=== PATIENT | male | born 1950 | race Caucasian/White ===

== ENCOUNTER 2020-01-07 17:54 | Inpatient (IN) | payer MEDICARE ==
[2020-01-07] MEDS ORDERED: Magnesium 2 GM/50 ML BAG (IN WATER) ONE (18:25)
[2020-01-07] MEDS ORDERED: Dexamethasone 10 MG/ML VIAL ONE ×2 (18:25→18:28)
[2020-01-07] MEDS ORDERED: EPINEPHrine 1 MG/ML AMP ONE (18:29)
[2020-01-07] MEDS ORDERED: Guaifenesin DM 100-10/5 ML UDCUP PO PRN (19:36)
[2020-01-07] MEDS ORDERED: Calcium Carbonate 500 MG ChewTAB PO PRN (19:37)
[2020-01-07] MEDS ORDERED: Acetaminophen 325 MG TAB PO PRN (19:37)
[2020-01-07] MEDS ORDERED: Acetaminophen 650 MG Suppository PR PRN (19:37)
[2020-01-07] MEDS ORDERED: Albuterol 200 PUFF (6.7GM INHALER) INH PRN (19:40)
[2020-01-07] MEDS ORDERED: Ipratropium Oral Inhaler INH PRN (19:57)
--- NOTE | 2020-01-07 20:04 | PDOC.HHP ---
Hospitalist HPI - History of Present Illness SOB x 3 days History of Present Illness: PCP: DAK[facility] The patient is a 70/M with PMH significant for COPD, CAD x1, CABG x4 (1995), HTN , HLD, GERD and anxiety that presents for the above complaint. The patient reports that for the past 3 days, he has had increasing SOB and cough. Describes cough as productive, clear phlegm. Reports mild chest discomfort, describes as burning, exacerbated/relieved by nothing. Denies heart palpitations , orthopnea. Reports increased usage of his Duonebs, having to use them 10-12 times per day. He sleeps with a fan, reports subjective fever and chills. Denies any abdominal pain, nausea, vomiting or diarrhea. Reports his grand daughter, who stays with him often, had bronchitis about 1 week prior to onset of his symptoms. ED Course: [facility] VS T 97.8F, BP 129/61, HR 90, RR 32, Sp02 94 RA DD 2.56 CTA chest negative for PE, + for bilateral lower lobe patchy infiltrates LA 2.0 WBC 12.4 Flu and strep test negative BNP 218 Trop 0.025 Given: 2L IVF ASA 324mg Rocephin and Azithromycin IVPB Sent to [facility] Covid 19 test taken Dexamethasone 10mg oral Magsulfate Epinephrine 0.3 mg IM in lieu of inhalers Hospitalist ROS - Review of Systems Constitutional: reports: fever (subjective), chills Eyes: denies: pain, vision change, conjunctivae inflammation, eyelid inflammation, redness, other ENT: denies: ear pain, ear discharge, nose pain, nose discharge, nose congestion , mouth pain, mouth swelling, throat pain, throat swelling, other Respiratory: reports: cough, shortness of breath, sputum (clear). denies: dry, hemoptysis Cardiovascular: denies: chest pain, palpitations, orthopnea, paroxysmal noc. dyspnea, edema, light headedness Gastrointestinal: reports: diarrhea. denies: nausea, vomiting, abdominal pain Genitourinary: denies: dysuria, frequency, incontinence, hematuria, retention, other Musculoskeletal: denies: neck pain, shoulder pain, arm pain, back pain, hand pain, leg pain, foot pain, other Skin: denies: rash, lesions, yaya, bruising, other Neurological: denies: weakness, numbness, incoordination, change in speech, confusion, seizures, other Hospitalist History - Past Medical History Source: patient Cardiac: reports: CAD, HTN, [place], Hyperlipidemia Pulmonary: reports: COPD Gastrointestinal: reports: GERD Psych: reports: Anxiety Musculoskeletal: reports: Other (muscle spasms) - Past Surgical History Past Surgical History: reports: CABG (Quadruple bypass (1995)), Other (Right eye biopsy (benign)) - Family History Family History: reports: cardiac disorder - Social History Smoking Status: Current every day smoker Tobacco Type: cigarettes Alcohol: reports: None Drugs: reports: none Living Situation: Alone Occupation: Lives in [place], disability, Activity level: independent ambulation - Exam General Appearance: awake alert General - other findings: unable to speak in complete sentences without supplemental oxygen Eye: anicteric sclera ENT: normocephalic atraumatic, dry oral mucosa Neck: supple, no JVD Heart: RRR, no murmur, no gallops, no rubs, normal peripheral pulses Respiratory: rales, wheezes Respiratory - other findings: diminished in BLL Gastrointestinal: soft, non-tender, normal bowel sounds, no guarding, no rigidity Extremities: no cyanosis, no edema, clubbing Skin: no rashes Neurological: no focal deficits Psychiatric: normal affect, A&O x 3 Hospitalist Results - Radiology Interpretation CT scan - chest Status: report reviewed by nd Hospitalist H&P A/P - Problem (1) Sepsis Code(s): A41.9 - SEPSIS, UNSPECIFIED ORGANISM Status: Acute Assessment and Plan: Admit to medical floor, inpatient status Expected length of stay > 2 midnights Continue Azithromycin and Rocephin IVPB Albuterol/Atrovent inhalers scheduled and prn Influenza and strep test negative Blood CX pending COVID-19 pending Isolation precautions (2) Bilateral pneumonia Code(s): J18.9 - PNEUMONIA, UNSPECIFIED ORGANISM Status: Acute Assessment and Plan: Azithromycin and Rocephin IVPB Albuterol/Atrovent inhalers scheduled and prn Guaifenesin-DM prn Supplemental oxygen (3) COPD exacerbation Code(s): J44.1 - CHRONIC OBSTRUCTIVE PULMONARY DISEASE W (ACUTE) EXACERBATION Status: Acute Assessment and Plan: Azithromycin and rocephin albuterol/atrovent inhalers scheduled and prn Solumedrol scheduled Guaifenesin-DM prn (4) Hyponatremia Code(s): E87.1 - HYPO-OSMOLALITY AND HYPONATREMIA Status: Acute Assessment and Plan: Mild, will recheck level in am (5) CKD (chronic kidney disease) stage 3, GFR 30-59 ml/min Code(s): N18.3 - CHRONIC KIDNEY DISEASE, STAGE 3 (MODERATE) Status: Acute Assessment and Plan: GFR 76 (2014). (6) Tobacco abuse Code(s): Z72.0 - TOBACCO USE Status: Acute Assessment and Plan: 1/2 ppd x > 40 years Recently cut back to < 5 cigarettes/day Start NRT Counseling Tobacco cessation (7) HTN (hypertension) Code(s): I10 - ESSENTIAL (PRIMARY) HYPERTENSION Status: Acute Assessment and Plan: Will restart home medications when reconciled Continue to monitor blood pressure HH diet (8) HLD (hyperlipidemia) Code(s): E78.5 - HYPERLIPIDEMIA, UNSPECIFIED Status: Chronic Assessment and Plan: Restart statin when home medications reconciled. (9) H/O four vessel coronary artery bypass graft Code(s): Z95.1 - PRESENCE OF AORTOCORONARY BYPASS GRAFT Status: Chronic (10) Anxiety Code(s): F41.9 - ANXIETY DISORDER, UNSPECIFIED Status: Chronic Assessment and Plan: Restart lorazepam when home medications reconciled. - Plan Plan: Consult PT DVT and GI prophylaxis Full Code CHEPE Mckeon @ [phone]
[2020-01-07 22:42] LABS: Troponin I Less than 0.010 ng/mL (< 0.028)
[2020-01-07] MEDS: methylPREDNISolone Sod Succ 40 MG VIAL IVP SCH (23:03)
[2020-01-07] MEDS: Nicotine 14 MG PATCH TD SCH (23:03)
[2020-01-07 23:32] VITALS: BMI 22.8
[2020-01-08] MEDS: Albuterol 200 PUFF (6.7GM INHALER) INH SCH ×4 (00:45→19:22)
[2020-01-08] MEDS ORDERED: Polyethylene Glycol 3350 17 GM Packet PO PRN (01:06)
[2020-01-08] MEDS ORDERED: Methocarbamol 500 MG TAB PO SCH (02:15)
[2020-01-08] MEDS: Lorazepam 0.5 MG TAB PO PRN ×3 (02:16→19:52)
[2020-01-08] MEDS: methylPREDNISolone Sod Succ 40 MG VIAL IVP SCH ×4 (05:21→23:16)
[2020-01-08 07:01] LABS: #Lymphocytes 0.5 thou/uL (1.20-3.40); #Monocytes 0.1 thou/uL (0.11-0.59); #Neutrophils 4.7 thou/uL (1.40-6.50); %Basophils 0.3 % (0.0-1.0); %Eosinophils 0.2 % (0.0-10.0); %Lymphocytes 8.7 % (21.0-51.0); %Monocytes 1.5 % (0.0-10.0); %Neutrophils 89.3 % (42.0-75.0); Mean Corpuscular HGB CONC 33.7 g/dL (32.0-36.0); Mean Corpuscular Hemoglobin 31.4 pg (27.0-31.0); Mean Platelet Volume 7.8 fL (7.4-10.4); Platelet Count 171 thou/uL (130-400); RBC Distribution Width 12.3 % (11.5-14.5); Red Blood Cell (RBC) Count 4.46 mill/uL (4.70-6.10); White Blood Cell (WBC) Count 5.3 thou/uL (4.8-10.8)
[2020-01-08 07:22] LABS: ALT (SGPT) 28 U/L (8-55); AST (SGOT) 24 U/L (5-34); Albumin 3.5 g/dL (3.4-4.8); Alkaline Phosphatase 63 U/L (40-110); Anion Gap 14 mmol/L (10-20); BUN (Urea Nitrogen) 15 mg/dL (8.4-25.7); Bilirubin, Total 0.3 mg/dL (0.2-1.2); Calc. Creatinine Clearance 56 mL/min (70-130); Calcium 8.2 mg/dL (7.8-10.44); Carbon Dioxide 21 mmol/L (23-31); Chloride 104 mmol/L (98-107); Estimated GFR-MDRD 61; Globulin 3.1 g/dL (2.4-3.5); Glucose 177 mg/dL (83-110); Potassium 4.8 mmol/L (3.5-5.1); Protein, Total 6.6 g/dL (5.8-8.1); Sodium 134 mmol/L (136-145)
[2020-01-08] MEDS: Famotidine/PF 20 mg/2ml Vial SLOW IVP SCH ×2 (07:22→19:40)
[2020-01-08] MEDS: Multivitamin W/ Minerals 1 TAB PO SCH (07:25)
[2020-01-08] MEDS: Aspirin 81 mg Enteric Coated Tablet PO SCH (07:25)
[2020-01-08] MEDS: Metoprolol Tartrate 50 MG TAB PO SCH ×2 (07:25→19:40)
[2020-01-08] MEDS: Famotidine 20 MG TAB PO SCH ×2 (07:26→19:40)
[2020-01-08] MEDS: Isosorbide Mononitrate (ER) 30 MG TAB PO SCH (07:26)
[2020-01-08] MEDS: Enoxaparin Sodium 40 MG/0.4 ML SYRINGE SC SCH (07:26)
--- NOTE | 2020-01-08 09:28 | PDOC.HOSPP ---
- Subjective Encounter Date: 01/08/20 Encounter Time: 10:20 Subjective: Patient feeling a bit better this AM. Still with significant cough. SOB improved. No fever. - Objective Vital Signs & Weight: Vital Signs (12 hours) Temp Pulse Ox 01/08/20 08:00 98.1 F 97 01/08/20 04:00 97.6 F 01/08/20 00:47 96 01/08/20 00:00 98.3 F 97 01/07/20 22:40 98.1 F Weight Weight 155 lb 3 oz Most Recent Monitor Data Heart Rate from ECG 95 NIBP 138/82 NIBP BP-Mean 100 Respiration from ECG 17 SpO2 92 I&O: 01/07/20 01/08/20 01/09/20 06:59 06:59 06:59 Intake Total 1225 Output Total 725 Balance 500 Result Diagrams: 01/08/20 06:54 01/08/20 06:54 Hospitalist ROS - Review of Systems Constitutional: denies: fever, chills Respiratory: reports: cough, shortness of breath Cardiovascular: denies: chest pain, palpitations Gastrointestinal: denies: nausea, vomiting, abdominal pain Genitourinary: denies: dysuria, hematuria - Medication Medications: Active Medications Generic Name Dose Route Start Last Admin Trade Name Freq PRN Reason Stop Dose Admin Albuterol Sulfate 2 puff 01/08/20 01:00 01/08/20 07:37 Proventil Hfa INH 2 puff [id number] GUANACO Administration Aspirin 81 mg 01/08/20 09:00 01/08/20 07:25 Ecotrin PO 81 mg DAILY GUANACO Administration Enoxaparin Sodium 40 mg 01/08/20 09:00 01/08/20 07:26 Lovenox SC 40 mg 0900 GUANACO Administration Famotidine 20 mg 01/08/20 09:00 01/08/20 07:22 Pepcid SLOW IVP Not Given Q12HR GUANACO Famotidine 20 mg 01/08/20 09:00 01/08/20 07:26 Pepcid PO 20 mg BID GUANACO Administration Ipratropium Felicity 2 puff 01/07/20 19:57 01/08/20 05:22 Atrovent Hfa INH 2 puff QID-RT PRN Administration Wheezing or Cough Iron/Minerals/Multivitamins 1 tab 01/08/20 09:00 01/08/20 07:25 Theragran M PO 1 tab DAILY GUANACO Administration Isosorbide Mononitrate 30 mg 01/08/20 09:00 01/08/20 07:26 Imdur Er PO 30 mg DAILY GUANACO Administration Lorazepam 0.5 mg 01/08/20 01:06 01/08/20 02:16 Ativan PO 0.5 mg TID PRN Administration Anxiety Methylprednisolone Sodium Succinate 40 mg 01/07/20 23:59 01/08/20 05:21 Solu-Medrol IVP 40 mg Q6HR GUANACO Administration Metoprolol Tartrate 25 mg 01/08/20 09:00 01/08/20 07:25 Lopressor PO 25 mg BID GUANACO Administration Nicotine 14 mg 01/07/20 22:00 01/07/20 23:03 Nicoderm Patch TD 14 mg Q24HR GUANACO Administration Sodium Chloride 10 ml 01/07/20 19:37 01/08/20 05:22 Flush - Normal Saline IVF 10 ml PRN PRN Administration Saline Flush - Exam General Appearance: NAD, awake alert ENT: moist mucosa Heart: RRR, no murmur, no gallops, no rubs Respiratory - other findings: bilateral scattered wheezes, some basilar coarse crackles, no inc WOB Gastrointestinal: soft, non-tender, non-distended, normal bowel sounds Psychiatric: normal affect, normal behavior, A&O x 3 Hosp A/P (1) Sepsis Code(s): A41.9 - SEPSIS, UNSPECIFIED ORGANISM Status: Acute (2) Bilateral pneumonia Code(s): J18.9 - PNEUMONIA, UNSPECIFIED ORGANISM Status: Acute (3) COPD exacerbation Code(s): J44.1 - CHRONIC OBSTRUCTIVE PULMONARY DISEASE W (ACUTE) EXACERBATION Status: Acute (4) Hyponatremia Code(s): E87.1 - HYPO-OSMOLALITY AND HYPONATREMIA Status: Acute (5) HTN (hypertension) Code(s): I10 - ESSENTIAL (PRIMARY) HYPERTENSION Status: Chronic (6) GERD (gastroesophageal reflux disease) Code(s): K21.9 - GASTRO-ESOPHAGEAL REFLUX DISEASE WITHOUT ESOPHAGITIS Status: Chronic (7) Tobacco abuse Code(s): Z72.0 - TOBACCO USE Status: Acute (8) Acute renal failure superimposed on stage 2 chronic kidney disease Code(s): N17.9 - ACUTE KIDNEY FAILURE, UNSPECIFIED; N18.2 - CHRONIC KIDNEY DISEASE, STAGE 2 (MILD) Status: Acute - Plan Creatinine improved with fluids Sating well on 2L NC Rocephin and Azithromycin starting 01/07/2020 COVID-19 pending Stable for transfer to medical GI proph: pepcid DVT proph: Lovenox
[2020-01-08] MEDS: Methocarbamol 500 MG TAB PO SCH ×3 (09:44→19:40)
[2020-01-08] MEDS ORDERED: Azithromycin 500 MG in Sodium Chloride 0.9% 250 ML 250 ML IVPB SCH (16:00)
[2020-01-08] MEDS ORDERED: cefTRIAXone\\ROCEPHIN 1 GM in Sodium Chloride 0.9% 100 ML IVPB SCH (17:00)
[2020-01-08] MEDS: Nicotine 14 MG PATCH TD SCH (23:16)
[2020-01-09] MEDS: methylPREDNISolone Sod Succ 40 MG VIAL IVP SCH (05:24)
[2020-01-09] MEDS: Lorazepam 0.5 MG TAB PO PRN ×2 (05:24→20:12)
[2020-01-09] MEDS: Albuterol 200 PUFF (6.7GM INHALER) INH SCH (07:09)
[2020-01-09] MEDS: Famotidine 20 MG TAB PO SCH ×2 (08:07→20:11)
[2020-01-09] MEDS: Aspirin 81 mg Enteric Coated Tablet PO SCH (08:07)
[2020-01-09] MEDS: Methocarbamol 500 MG TAB PO SCH ×3 (08:07→20:12)
[2020-01-09] MEDS: Isosorbide Mononitrate (ER) 30 MG TAB PO SCH (08:08)
[2020-01-09] MEDS: Famotidine/PF 20 mg/2ml Vial SLOW IVP SCH ×2 (08:08→20:11)
[2020-01-09] MEDS: Metoprolol Tartrate 50 MG TAB PO SCH ×2 (08:08→20:12)
[2020-01-09] MEDS: Enoxaparin Sodium 40 MG/0.4 ML SYRINGE SC SCH (08:09)
[2020-01-09] MEDS: Multivitamin W/ Minerals 1 TAB PO SCH (08:09)
--- NOTE | 2020-01-09 08:45 | PDOC.HOSPP ---
- Subjective Encounter Date: 01/09/20 - Objective Vital Signs & Weight: Vital Signs (12 hours) Temp Pulse Resp BP Pulse Ox 01/09/20 05:30 97.7 F 72 20 136/70 93 L 01/08/20 23:30 98.1 F 80 20 133/75 95 Weight Weight 155 lb 3 oz Most Recent Monitor Data Heart Rate from ECG 88 NIBP 129/75 NIBP BP-Mean 93 Respiration from ECG 26 SpO2 95 I&O: 01/08/20 01/09/20 01/10/20 06:59 06:59 06:59 Intake Total 1225 740 Output Total 725 2125 Balance 500 -1385 Result Diagrams: 01/08/20 06:54 01/08/20 06:54 Hospitalist ROS - Medication Medications: Active Medications Generic Name Dose Route Start Last Admin Trade Name Freq PRN Reason Stop Dose Admin Albuterol Sulfate 2 puff 01/08/20 01:00 01/09/20 07:09 Proventil Hfa INH 2 puff [id number] GUANACO Administration Aspirin 81 mg 01/08/20 09:00 01/09/20 08:07 Ecotrin PO 81 mg DAILY GUANACO Administration Enoxaparin Sodium 40 mg 01/08/20 09:00 01/09/20 08:09 Lovenox SC 40 mg 0900 GUANACO Administration Famotidine 20 mg 01/08/20 09:00 01/09/20 08:08 Pepcid SLOW IVP Not Given Q12HR GUANACO Famotidine 20 mg 01/08/20 09:00 01/09/20 08:07 Pepcid PO 20 mg BID GUANACO Administration Azithromycin 500 mg/ Sodium 250 mls @ 250 mls/hr 01/08/20 16:00 01/08/20 16: 17 Chloride IVPB 250 mls Q24HR GUANACO Administration Ceftriaxone Sodium 1 gm/ 100 mls @ 200 mls/hr 01/08/20 17:00 01/08/20 17:05 Sodium Chloride IVPB 100 mls Q24HR GUANACO Administration Ipratropium Dennis 2 puff 01/07/20 19:57 01/08/20 05:22 Atrovent Hfa INH 2 puff QID-RT PRN Administration Wheezing or Cough Iron/Minerals/Multivitamins 1 tab 01/08/20 09:00 01/09/20 08:09 Theragran M PO 1 tab DAILY GUANACO Administration Isosorbide Mononitrate 30 mg 01/08/20 09:00 01/09/20 08:08 Imdur Er PO 30 mg DAILY GUANACO Administration Lorazepam 0.5 mg 01/08/20 01:06 01/09/20 05:24 Ativan PO 0.5 mg TID PRN Administration Anxiety Methocarbamol 500 mg 01/08/20 09:00 01/09/20 08:07 Robaxin PO 500 mg TID GUANACO Administration Methylprednisolone Sodium Succinate 40 mg 01/07/20 23:59 01/09/20 05:24 Solu-Medrol IVP 40 mg Q6HR GUANACO Administration Metoprolol Tartrate 25 mg 01/08/20 09:00 01/09/20 08:08 Lopressor PO 25 mg BID GUANACO Administration Nicotine 14 mg 01/07/20 22:00 01/08/20 23:16 Nicoderm Patch TD 14 mg Q24HR GUANACO Administration Sodium Chloride 10 ml 01/07/20 19:37 01/08/20 05:22 Flush - Normal Saline IVF 10 ml PRN PRN Administration Saline Flush Hosp A/P (1) Sepsis Code(s): A41.9 - SEPSIS, UNSPECIFIED ORGANISM Status: Acute (2) Bilateral pneumonia Code(s): J18.9 - PNEUMONIA, UNSPECIFIED ORGANISM Status: Acute (3) COPD exacerbation Code(s): J44.1 - CHRONIC OBSTRUCTIVE PULMONARY DISEASE W (ACUTE) EXACERBATION Status: Acute (4) Hyponatremia Code(s): E87.1 - HYPO-OSMOLALITY AND HYPONATREMIA Status: Acute (5) HTN (hypertension) Code(s): I10 - ESSENTIAL (PRIMARY) HYPERTENSION Status: Chronic (6) GERD (gastroesophageal reflux disease) Code(s): K21.9 - GASTRO-ESOPHAGEAL REFLUX DISEASE WITHOUT ESOPHAGITIS Status: Chronic (7) Tobacco abuse Code(s): Z72.0 - TOBACCO USE Status: Acute (8) Acute renal failure superimposed on stage 2 chronic kidney disease Code(s): N17.9 - ACUTE KIDNEY FAILURE, UNSPECIFIED; N18.2 - CHRONIC KIDNEY DISEASE, STAGE 2 (MILD) Status: Acute - Plan Creatinine improved with fluids Sating well on 2L NC Rocephin and Azithromycin starting 01/07/2020 COVID-19 negative (apparently was sent from [place] [facility]) Will d/c Covid precautions Stable for transfer to medical GI proph: pepcid DVT proph: Lovenox D/C home once successfully weaned off O2
[2020-01-09] MEDS ORDERED: predniSONE 20 MG TAB PO SCH (09:00)
[2020-01-09] MEDS: Benzonatate 100 MG CAP PO PRN ×2 (09:08→23:08)
[2020-01-09] MEDS: Cefdinir 300 MG CAP PO SCH ×2 (09:09→20:11)
[2020-01-09] MEDS: Azithromycin 250 MG TAB PO SCH (09:09)
--- NOTE | 2020-01-09 15:37 | PQF ---
ANNI GALLEGOS RYAN ANDREW MD [id number] CLINICAL DOCUMENTATION IMPROVEMENT CLARIFICATION FORM: ICD-10 Updated PLEASE DO AN ADDENDUM TO THE PROGRESS NOTE WITH ANY DOCUMENTATION UPDATES OR ADDITIONS AND CARRY THROUGH TO DC SUMMARY. THANK YOU. DATE: 12/11/2019 ATTN: Dr. Fernandez Please exercise your independent, professional judgment in responding to the clarification form. Clinical indicators are provided on the bottom of this form for your review Please check appropriate box(s): [ X ] Acute Respiratory Failure: [ X ] with Hypoxia [ ] with Hypercapnia [ ] Respiratory Distress without Respiratory Failure [ ] Hypoxia [ ] Other diagnosis [ ] Unable to determine For continuity of documentation, please document condition throughout progress notes and discharge summary. Thank You. CLINICAL INDICATORS - SIGNS / SYMPTOMS / LABS / RESULTS AND LOCATION IN [facility] ([place]) 01/06: - VS RR 28-32 O2 SAT 90% on RA to 95-96% on 2L O2 NC - Physical Exam .... Moderate respiratory distress. * H&P 01/06 ([facility]): - [place] [facility] VS RR 32, SpO2 94 RA - CTA chest negative for PE, + bilateral lower lobe patchy infiltrates - Review of Systems Respiratory: reports: cough, shortness of breath ... RISK FACTORS / RESULTS AND LOCATION IN * H&P 01/06 ([facility]): Sepsis ... Bilateral Pneumonia ... COPD exacerbation TREATMENTS / RESULTS AND LOCATION IN [facility] ([place]) 01/06: O2 per NC * H&P 01/06 ([facility]): Continue Azithromycin and Rocephin IVPB ... Albuterol/ Atrovent inhalers scheduled and prn ... Supplemental oxygen Thank you, Fina (This form is maintained as a part of the permanent medical record) 2014 [employer]. All Rights Reserved Fina Frost RN, CDS [email or web address] cell phone: Acute Respiratory Failure: ABG pH < 7.35 or > 7.45; Decreased oxygen saturation (<90% room air or < 95% on oxygen); PCO2 > 50 mm Hg; PO2 < 60 mm Hg; Labored or rapid respirations ARDS: Dx Criteria [[place] ARDS]: Respiratory symptoms within one week of a known clinical insult (e.g. shock, infection, surgery, trauma) Bilateral opacities in CXR/Chest CT not due to CHF or fluid MTDD
[2020-01-09] MEDS: Nicotine 14 MG PATCH TD SCH (23:08)
[2020-01-10] MEDS: Lorazepam 0.5 MG TAB PO PRN (05:20)
[2020-01-10] MEDS: Multivitamin W/ Minerals 1 TAB PO SCH (07:52)
[2020-01-10] MEDS: Isosorbide Mononitrate (ER) 30 MG TAB PO SCH (07:52)
[2020-01-10] MEDS: Cefdinir 300 MG CAP PO SCH (07:52)
[2020-01-10] MEDS: Azithromycin 250 MG TAB PO SCH (07:52)
[2020-01-10] MEDS: Metoprolol Tartrate 50 MG TAB PO SCH (07:53)
[2020-01-10] MEDS: Aspirin 81 mg Enteric Coated Tablet PO SCH (07:53)
[2020-01-10] MEDS: Famotidine 20 MG TAB PO SCH (07:53)
[2020-01-10] MEDS: Enoxaparin Sodium 40 MG/0.4 ML SYRINGE SC SCH (07:57)
[2020-01-10] MEDS: Famotidine/PF 20 mg/2ml Vial SLOW IVP SCH (07:58)
[2020-01-10] MEDS ORDERED: predniSONE 20 MG TAB PO SCH (08:00)
[2020-01-10] MEDS: Methocarbamol 500 MG TAB PO SCH ×2 (09:16→17:08)
[2020-01-10] MEDS: Benzonatate 100 MG CAP PO PRN (09:16)
[2020-01-10 17:07] VITALS: BP 150/75; TEMP 98.2
--- NOTE | 2020-01-13 08:32 | DIS ---
DATE OF ADMISSION: 01/07/2020 DATE OF DISCHARGE: 01/10/2020 DISCHARGE DIAGNOSES: As of the following; 1. Sepsis, resolved. 2. Bilateral pneumonia. 3. Chronic obstructive pulmonary disease exacerbation. 4. Hyponatremia, resolved. 5. Hypertension. 6. Gastroesophageal reflux disease. 7. Acute on chronic renal failure, stage 2, resolved. HOSPITAL COURSE: The patient is a very pleasant 70-year-old male, who initially presented to the hospital. Please refer to the H and P from 01/06 for further details. He initially presented to the hospital with complaints of shortness of breath x3 days. At this time, he underwent a CTA, which indicated bilateral pneumonia. Also, he was tested for COVID, and his test was negative. He was put on IV antibiotics, which were transitioned to oral. The patient's flu and strep test was negative. He continued to improve through the hospital stay. He was ambulated on the day of discharge, and no signs of hypoxia were noted. His sats were 93 after walking 300 feet. The patient stated that he felt well, and he wants to go home. DISCHARGE HOME MEDICATIONS: Will be as of the following; 1. Azithromycin 250 daily. 2. Cefdinir 300 mg b.i.d. 3. DuoNeb q.4 hours. 4. Prednisone 40 mg daily, total for 5 days. 5. Aspirin 81 mg daily. 6. Isosorbide 30 mg daily. 7. Ranitidine 150 mg b.i.d. p.r.n. 8. Atorvastatin 80 mg q.h.s. 9. Robaxin 500 mg t.i.d. as needed. 10. Metoprolol 25 mg twice a day. 11. MiraLAX as needed. 12. Lorazepam as needed. PHYSICAL EXAMINATION: VITAL SIGNS: Temperature 98.0, pulse 85, respiratory rate 18, saturation 95% on room air, and blood pressure 134/73. GENERAL: He is awake, alert, and oriented x3. Does not appear in distress CARDIOVASCULAR: S1 and S2 present. No murmurs, rubs, or gallops. ABDOMEN: Soft and nontender. Bowel sounds are present x2. Again, he will be discharged home. He will follow up with his primary, and also of note, on his CTA, there was an indication of a 3.1 cm aneurysm, which was incompletely visualized of the abdominal aorta at the origin of the SMA. This was put in his discharge note, and also I have spoken with the patient to follow up as an outpatient with his primary at the [facility]. Job ID: [id number]
== END 2020-01-10 18:04 | disposition home or self-care (01) | DRG 871 ==
LOC: ERS 17:54 → IMCU/EMU 18:54 → T4-A 01-08 18:39
PROVIDERS: ADMIT Emergency Medicine; ATTEND Emergency Medicine
DX: A41.9 Sepsis, unspecified organism (principal); J18.9 Pneumonia, unspecified organism; J96.01 Acute respiratory failure with hypoxia; J44.0 Chronic obstructive pulmonary disease with (acute) lower respiratory infection; J44.1 Chronic obstructive pulmonary disease with (acute) exacerbation; E87.1 Hypo-osmolality and hyponatremia; N17.9 Acute kidney failure, unspecified; I25.10 Atherosclerotic heart disease of native coronary artery without angina pectoris; E78.5 Hyperlipidemia, unspecified; K21.9 Gastro-esophageal reflux disease without esophagitis; F41.9 Anxiety disorder, unspecified; I12.9 Hypertensive chronic kidney disease with stage 1 through stage 4 chronic kidney disease, or unspecified chronic kidney disease; N18.3 Chronic kidney disease, stage 3 (moderate); F17.210 Nicotine dependence, cigarettes, uncomplicated; I71.4 Abdominal aortic aneurysm, without rupture; Z95.1 Presence of aortocoronary bypass graft; I25.2 Old myocardial infarction
CPT/HCPCS: 36415; 80053; 85025; 94640; J0171; J0456; J0696; J1100; J1650; J2920; J3475; J3490; J7050; J7512; J7620

== ENCOUNTER 2020-07-27 12:49 | Inpatient (IN) | payer OTHER ==
--- NOTE | 2020-07-27 13:40 | RAD ---
XR Chest 1 View Portable HISTORY: Dizziness, difficulty breathing and chest pain COMPARISON: 01/29/2020 FINDINGS: The heart size is normal. Changes of median sternotomy are again seen. The aorta is tortuou s. There is continued elevation of the left hemidiaphragm. The lungs are without focal areas of consolidation, pneumothorax or significant pleural effusions. There is chronic blunting of the left c ostophrenic angle. IMPRESSION: No radiographic evidence of acute cardiopulmonary process.
[2020-07-27] MEDS ORDERED: Albuterol 200 PUFF (6.7GM INHALER) ONE (13:42)
[2020-07-27 13:49] LABS: #Eosinphils 0.3 thou/uL (0.0-0.7); #Monocytes 0.2 thou/uL (0.11-0.59); #Neutrophils 6.5 thou/uL (1.40-6.50); %Basophils 0.4 % (0.0-1.0); %Eosinophils 3.8 % (0.0-10.0); %Lymphocytes 12.1 % (21.0-51.0); %Monocytes 2.9 % (0.0-10.0); %Neutrophils 80.9 % (42.0-75.0); Hemoglobin 16.4 g/dL (14.0-18.0); Mean Corpuscular HGB CONC 33.5 g/dL (32.0-36.0); Mean Corpuscular Hemoglobin 32.2 pg (27.0-31.0); Mean Platelet Volume 8.4 fL (7.4-10.4); Platelet Count 145 thou/uL (130-400); RBC Distribution Width 12.6 % (11.5-14.5); Red Blood Cell (RBC) Count 5.09 mill/uL (4.70-6.10)
[2020-07-27 14:15] LABS: ALT (SGPT) 16 U/L (8-55); AST (SGOT) 12 U/L (5-34); Albumin 3.9 g/dL (3.4-4.8); Alkaline Phosphatase 66 U/L (40-110); Anion Gap 13 mmol/L (10-20); BUN (Urea Nitrogen) 13 mg/dL (8.4-25.7); Bilirubin, Total 0.4 mg/dL (0.2-1.2); Calc. Creatinine Clearance 0 mL/min (70-130); Calcium 8.4 mg/dL (7.8-10.44); Carbon Dioxide 25 mmol/L (23-31); Chloride 105 mmol/L (98-107); Estimated GFR-MDRD 61; Globulin 2.6 g/dL (2.4-3.5); Glucose 107 mg/dL (83-110); Protein, Total 6.5 g/dL (5.8-8.1); Sodium 138 mmol/L (136-145)
--- NOTE | 2020-07-27 15:23 | PDOC.FPRHP ---
- History of Present Illness Chief Complaint: SOB History of Present Illness: 70 yo M with a PMH of COPD, chronic bronchitis, HTN, HLD, [place], CABG, CAD, and GERD presenting for SOB of 10 day duration. Patient explains he typically uses his home nebulizer 6 times a day and has noticed an increase up to 8-10 times a day. The other night he woke up short of breath and had an oxygen saturation of 85% that improved to 93% after completing a breathing treatment. He is more short of breath walking to the pond behind his house and when doing his daily activities. He also reports an increased productive cough of clear mucous. Mr. Mckeon describes a chest pressure in the center of his chest that feels like a "balloon swelled up inside" that is present when he coughs. He denies chest pain associated with exertion. He endorses orthopnea which has been present for some time causing him to sleep in his recliner. Patient also reports a ~20 pound weight loss over the past 4-5 months, explaining he has been eating less but fe els like the weight is falling off of him. ED Course: EMS: NS, solumedrol, aspirin, albuterol - Allergies/Adverse Reactions Allergies Allergy/AdvReac Type Severity Reaction Status Date / Time No Known Allergies Allergy Verified 01/07/20 23:58 - Home Medications Medication Instructions Recorded Confirmed Type Aspirin [Aspirin EC] 81 mg PO DAILY 01/08/20 07/27/20 History Atorvastatin Calcium 80 mg PO HS 01/08/20 07/27/20 History Benzonatate 100 mg PO TID PRN 01/08/20 07/27/20 History Isosorbide Mononitrate [Isosorbide 30 mg PO DAILY 01/08/20 07/27/20 History Mononitrate ER] LORazepam [Lorazepam] 0.5 mg PO TID PRN 01/08/20 07/27/20 History Methocarbamol [Robaxin] 500 mg PO TID 01/08/20 07/27/20 History Metoprolol Tartrate 25 mg PO BID 01/08/20 07/27/20 History Multivitamin W/ Minerals 1 tab PO DAILY 01/08/20 07/27/20 History [Theragran M] Nitroglycerin [Nitrostat] 0.4 mg SL Q5MIN PRN 01/08/20 07/27/20 History Polyethylene Glycol 3350 [Miralax] 17 gm PO DAILY PRN 01/08/20 07/27/20 History Ranitidine HCl 150 mg PO BID PRN 01/08/20 07/27/20 History Ipratropium/Albuterol Sulfate 3 ml NEB Q4H #240 neb 01/09/20 07/27/20 Rx [DuoNeb] Azithromycin [Zithromax] 250 mg PO DAILY #4 tab 01/10/20 07/27/20 Rx Cefdinir [Omnicef] 300 mg PO BID #8 cap 01/10/20 07/27/20 Rx predniSONE 40 mg PO QAM-WM #3 tab 01/10/20 07/27/20 Rx - History PMHx: [place], COPD, bronchitis, CAD, HTN, HLD, GERD PSHx: stents, CABG (2005) FHx: Heart disease, Dad - emphysema Social: Lives alone. . of the [employer], seen at the [facility]. 1/2PPD for 60 years, denies alcohol, marijuana or drug use - Review of Systems General: reports: weight/appetite/sleep changes. denies: fever/chills, fatigue Eyes: denies: vision changes ENT: denies: nasal congestion, rhinorrhea Respiratory: reports: cough, shortness of breath. denies: congestion Cardiovascular: reports: chest pain, palpitation, paroxysmal nocturnal dyspnea. denies: edema Gastrointestinal: denies: nausea, vomiting, diarrhea, constipation, abdominal pain Genitourinary: denies: dysuria Musculoskeletal: denies: arthritis/arthralgias Neurological: reports: weakness Psychological: reports: anxiety - Vital signs BP: 128/91 HR: 91 RR: 24 Tmax: 96.4 Pox: 95% on RA Wt: 67kg - Physical Exam Constitutional: NAD, awake, alert and oriented HEENT: normocephalic and atraumatic, no scleral icterus, grossly normal vision, grossly normal hearing, other (chronic ptosis and deviation of right eye) Neck: FROM Heart: RRR, no murmurs/rubs/gallops, pulses present, no edema Lungs: other (expiratory wheezes bilaterally) Abdomen: soft, non-tender, bowel sounds present, no masses/distention Musculoskeletal: normal structure, ROM grossly normal Neurological: no focal deficit Skin: no jaundice Psychiatric: normal mood and affect, good judgment and insight, intact recent and remote memory FMR H&P: Results - Labs Result Diagrams: 07/27/20 13:20 07/27/20 13:20 Lab results: WBC 8.0 thou/uL (4.8-10.8) 07/27/20 13:20 Hgb 16.4 g/dL (14.0-18.0) 07/27/20 13:20 Hct 48.8 % (42.0-52.0) 07/27/20 13:20 MCV 96.0 fL (78.0-98.0) 07/27/20 13:20 Plt Count 145 thou/uL (130-400) 07/27/20 13:20 Neutrophils % 80.9 % (42.0-75.0) H 07/27/20 13:20 Sodium 138 mmol/L (136-145) 07/27/20 13:20 Potassium 5.0 mmol/L (3.5-5.1) 07/27/20 13:20 Chloride 105 mmol/L (98-107) 07/27/20 13:20 Carbon Dioxide 25 mmol/L (23-31) 07/27/20 13:20 BUN 13 mg/dL (8.4-25.7) 07/27/20 13:20 Creatinine 1.17 mg/dL (0.7-1.3) 07/27/20 13:20 Glucose 107 mg/dL (83-110) 07/27/20 13:20 Calcium 8.4 mg/dL (7.8-10.44) 07/27/20 13:20 Total Bilirubin 0.4 mg/dL (0.2-1.2) 07/27/20 13:20 AST 12 U/L (5-34) 07/27/20 13:20 ALT 16 U/L (8-55) 07/27/20 13:20 Alkaline Phosphatase 66 U/L (40-110) 07/27/20 13:20 B-Natriuretic Peptide 196.7 pg/mL (0-100) H 07/27/20 13:37 Serum Total Protein 6.5 g/dL (5.8-8.1) 07/27/20 13:20 Albumin 3.9 g/dL (3.4-4.8) 07/27/20 13:20 - EKG Interpretation EKG: no ST elevation - Radiology Interpretation Chest x-ray Status: report reviewed by me (no cardiopulmonary process) FMR H&P: A/P - Plan 70 yo M with a history of COPD and CABG (2005) presenting for increasing SOB over past 10 days. COPD exacerbation Increase productive cough, SOB, and use of nebulizer over past 10 days -CXR normal -afebrile, WBC nml -Duonebs q4hr -albuterol q2hr prn -prednisone (1/5) -azithromycin CAD w/ ACS r/o History of CABG in 2005. Complaining of chest pressure when coughing. -EKG neg, BNP 196.7 -trop <0.01 -admit to tele -trend trops Weight Loss -self reported 20lb weight loss over 4-5 months -may consider CT of chest to screen for lung cancer given patient's smoking history Hx of HTN -Continue home meds Hx of HLD -Continue home meds GERD -Continue home meds Anxiety -takes lorazepam prn at home -aware, will evaluate and treat if necessary during hospitalization Code: FULL PCP: [facility] DVT: lovenox Diet: HH Dispo: eLOS <48 hours pending improvement of symptoms and negative ACS workup. FMR H&P: Upper Level - Plan Date/Time: 07/27/20 1523 IIsabela, have evaluated this patient and agree with findings/plan as outlined by international flight attendant resident. Pertinent changes/additions are listed here. 70 yo M with PMH CAD s/p CABG, COPD presents with increasing SOB and is admitted for COPD exacerbation. Reports 10 day hx increasing SOB, cough, clear sputum production, albuterol use 10x daily. Does not use long acting inhaler. [facility] Current smoker. Denies fever, vomiting. PMH: COPD, CAD s/p CABG, GERD, HLD, HTN, anxiety PE: Gen: NAD HEENT: Moist MM Heart: RRR, no murmurs or extra sounds Lungs: expiratory wheeze, SOB Abd: soft, nontender Ext: no cyanosis or edema Skin: no rashes Psych: AOx3 COPD exacerbation - Satting well on RA at rest but will desat with exertion - CXR with no acute change - WBC wnl with neutrophil predominance - Duonebs victor manuel with albuterol prn - PO prednisone - Azithromycin - Will need to optimize inhaler for better outpatient COPD control prior to d/c PCP: DAKOTA Attending: Maria Esther Dispo: admit for observation, expected LOS<48h
[2020-07-27] MEDS ORDERED: Albuterol Sulfate 2.5 mg/3 ml Neb NEB PRN (16:07)
[2020-07-27] MEDS ORDERED: Polyethylene Glycol 3350 17 GM Packet PO PRN (16:20)
[2020-07-27 16:56] LABS: Troponin I 0.027 ng/mL (< 0.028)
[2020-07-27 19:03] VITALS: BMI 21.9
[2020-07-27] MEDS: Albuterol 200 PUFF (6.7GM INHALER) INH PRN (19:40)
[2020-07-27 20:06] LABS: Troponin I Less than 0.010 ng/mL (< 0.028)
[2020-07-27] MEDS: Metoprolol Tartrate 25 MG TAB PO SCH (20:06)
[2020-07-27] MEDS: Atorvastatin Calcium 40 MG TAB PO SCH (20:06)
[2020-07-27] MEDS: Famotidine 20 MG TAB PO PRN (20:06)
[2020-07-27] MEDS: Lorazepam 0.5 MG TAB PO PRN (20:06)
[2020-07-27] MEDS: Methocarbamol 500 MG TAB PO SCH (20:06)
[2020-07-27] MEDS: Benzonatate 100 MG CAP PO PRN (20:06)
[2020-07-27] MEDS: Albuterol 200 PUFF (6.7GM INHALER) INH SCH (22:15)
[2020-07-28] MEDS: Albuterol 200 PUFF (6.7GM INHALER) INH PRN ×2 (00:55→04:30)
[2020-07-28] MEDS: Nicotine 14 MG PATCH TD SCH ×2 (01:11→21:32)
[2020-07-28] MEDS: Albuterol 200 PUFF (6.7GM INHALER) INH SCH ×6 (02:30→23:26)
[2020-07-28 05:33] LABS: #Lymphocytes 0.9 thou/uL (1.20-3.40); #Monocytes 0.4 thou/uL (0.11-0.59); #Neutrophils 5.5 thou/uL (1.40-6.50); %Basophils 0.5 % (0.0-1.0); %Eosinophils 0.2 % (0.0-10.0); %Lymphocytes 13.3 % (21.0-51.0); %Monocytes 5.4 % (0.0-10.0); %Neutrophils 80.7 % (42.0-75.0); Hemoglobin 15.5 g/dL (14.0-18.0); Mean Corpuscular HGB CONC 33.2 g/dL (32.0-36.0); Mean Corpuscular Hemoglobin 31.7 pg (27.0-31.0); Mean Corpuscular Volume 95.6 fL (78.0-98.0); Mean Platelet Volume 8.4 fL (7.4-10.4); Platelet Count 151 thou/uL (130-400); RBC Distribution Width 12.4 % (11.5-14.5); Red Blood Cell (RBC) Count 4.89 mill/uL (4.70-6.10); White Blood Cell (WBC) Count 6.8 thou/uL (4.8-10.8)
--- NOTE | 2020-07-28 05:37 | PDOC.FM ---
- Subjective Subjective: No reported events overnight. He c/o wheezing, SOB, heart racing this AM. Reports he has been SOB all night. Using albuterol inhaler with spacer, he has not used one of these in the past and is somewhat uncomfortable with using it. Normally uses nebulizer treatments at home. - Objective Vital Signs & Weight: Vital Signs (12 hours) Temp Pulse Resp BP BP Pulse Ox 07/28/20 04:55 94 18 152/73 H 96 07/28/20 00:05 74 18 132/63 96 07/27/20 18:10 96.4 F L 91 22 H 135/83 95 Weight Weight 67.358 kg Result Diagrams: 07/28/20 04:57 07/28/20 04:57 Phys Exam - Physical Examination moderate respiratory distress HEENT: moist MMs diffuse wheezing, audible without auscultation, on 2L NC 91% Cardiovascular: no significant murmur tachycardia, regular rhythm Gastrointestinal: soft ambulates without difficulty Psychiatric: A&O x 3 Dx/Plan - Plan Plan: 70 yo M with a history of COPD and CABG (2005) presenting for increasing SOB over past 10 days. COPD exacerbation Audibly wheezing this AM. CXR normal. Afebrile, WBC nml. Admission covid screen still pending. -albuterol q2hr prn -prednisone (2/5) -azithromycin (1/5) - would like to start duonebs LOKESH but admission COVID screen still pending - would also benefit from controller medication, will consider consult to pulmonology since these agents are only able to be prescribed by them at this time per current policy CAD w/ ACS r/o History of CABG in 2005. Complaining of chest pressure when coughing. EKG neg, BNP 196.7. Trop negative x 3. - low suspicion of ACS given negative EKG and troponins x 3, monitor for symptoms Weight Loss -self reported 20lb weight loss over 4-5 months -may consider CT of chest to screen for lung cancer given patient's smoking history Hx of HTN -Continue home meds Hx of HLD -Continue home meds GERD -Continue home meds Anxiety -takes lorazepam prn at home -aware, will evaluate and treat if necessary during hospitalization Code: FULL PCP: DAKOTA DVT: lovenox Diet: HH Dispo: eLOS <48 hours pending improvement of symptoms
[2020-07-28] MEDS: Lorazepam 0.5 MG TAB PO PRN ×2 (05:46→21:31)
[2020-07-28] MEDS: Benzonatate 100 MG CAP PO PRN ×2 (05:46→21:31)
[2020-07-28 05:51] LABS: Anion Gap 14 mmol/L (10-20); BUN (Urea Nitrogen) 19 mg/dL (8.4-25.7); Calc. Creatinine Clearance 51 mL/min (70-130); Calcium 8.7 mg/dL (7.8-10.44); Carbon Dioxide 22 mmol/L (23-31); Chloride 104 mmol/L (98-107); Estimated GFR-MDRD 57; Glucose 124 mg/dL (83-110); Potassium 4.4 mmol/L (3.5-5.1); Sodium 136 mmol/L (136-145)
--- NOTE | 2020-07-28 07:55 | HP ---
CHIEF COMPLAINT: Increased shortness of breath and cough at times several days in a patient with history of COPD. HISTORY OF PRESENT ILLNESS: Mr. Mckeon is a very talkative 70-year-old white male with a history of COPD. He presented with about a 10-day history of increased shortness of breath and increased cough as well as increased nebulizer treatments at home. He normally uses this 4 and 6 times a day and had increased 8 to 10 times per day. He presented to the ER. He was noted to have an O2 saturation of 85% and has been admitted for further treatment. Of note, he has had a 20 pounds weight loss over the last 4 to 5 months with slightly diminished appetite. PHYSICAL EXAMINATION: VITAL SIGNS: His blood pressure is 130/90, his heart rate is 85, he is afebrile, and his room air pulse ox is now 95%. GENERAL: He is completely awake, alert, very talkative, pleasant, no respiratory distress. EAR, NOSE, AND THROAT: No erythema or exudate noted. CARDIAC: Heart rhythm regular, S4 gallop. Distant heart sounds. No murmur or rub. LUNGS: Few expiratory wheezes. No rales or rhonchi. No use of accessory muscles. ABDOMEN: Flat and soft without guarding or rebound. NEUROLOGICAL: No focal deficits. LABORATORY DATA: Chemistries; sodium 138, potassium 5.0, chloride 105, bicarb 25, BUN 13, and creatinine 1.17. His liver function tests are normal. His troponins are negative at 0.027 followed by 0.010. CBC; his white count is 8000, hemoglobin 16.4, hematocrit 48.8 with an MCV of 96. Chest x-ray shows no acute infiltrates. No radiographic evidence of an acute cardiopulmonary process. ASSESSMENT: Exacerbation of chronic obstructive pulmonary disease. PLAN: Continue nebulizer treatments. Add steroids and antibiotics. We will need to be discharge him probably on triple therapy, which would include an inhaled long-acting beta-agonist, long-acting muscarinic agent, and an inhaled corticosteroid. Job ID: [id number]
[2020-07-28] MEDS: Enoxaparin Sodium 40 MG/0.4 ML SYRINGE SC SCH (08:31)
[2020-07-28] MEDS: Aspirin 81 mg Enteric Coated Tablet PO SCH (08:31)
[2020-07-28] MEDS: Methocarbamol 500 MG TAB PO SCH ×3 (08:31→21:31)
[2020-07-28] MEDS: predniSONE 20 MG TAB PO SCH (08:32)
[2020-07-28] MEDS: Metoprolol Tartrate 25 MG TAB PO SCH ×2 (08:32→21:31)
[2020-07-28] MEDS: Azithromycin 250 MG TAB PO SCH (08:32)
[2020-07-28] MEDS: Multivitamin W/ Minerals 1 TAB PO SCH (08:33)
[2020-07-28] MEDS ORDERED: FLU VACC QS2020-21(65YR UP)/PF 240 MCG/0.7 ML SYRINGE IM ONE (09:00)
[2020-07-28] MEDS ORDERED: methylPREDNISolone Sod Succ/PF 125 MG/2 ML VIAL IVP SCH (10:15)
[2020-07-28] MEDS: Famotidine 20 MG TAB PO PRN (10:49)
[2020-07-28 12:05] LABS: SARS-CoV-2 MS2 Positive; SARS-CoV-2 N Gene Negative; SARS-CoV-2 S Gene Negative; SARS-CoV-2 by NAA Not Detected (NotDetected); SARS-CoV-2 orf1ab Negative
--- NOTE | 2020-07-28 13:56 | PRG ---
DATE OF SERVICE: 07/28/2020 Mr. Mckeon is feeling slightly better this morning. He is as usual, very talkative self. He is awake and alert. His chest x-ray showed no evidence of an acute cardiopulmonary process. We will continue to treat him as per a COPD exacerbation while awaiting the results of a COVID test. Job ID: [id number]
[2020-07-28] MEDS: Atorvastatin Calcium 40 MG TAB PO SCH (21:31)
[2020-07-29] MEDS: Albuterol 200 PUFF (6.7GM INHALER) INH SCH ×6 (03:21→22:14)
--- NOTE | 2020-07-29 06:20 | PDOC.FM ---
- Subjective Subjective: No acute overnight overnight events. Feeling much better after nebulizer treatments and steroids yesterday. He is still feeling some wheezing. No chest pains, fever, chills. Occasional cough that is not bothersome. - Objective Vital Signs & Weight: Vital Signs (12 hours) Temp Pulse Resp BP Pulse Ox 07/29/20 05:00 97.9 F 69 18 136/77 94 L 07/29/20 03:24 96 07/29/20 03:23 98 07/29/20 00:00 96 07/28/20 23:19 98 07/28/20 21:31 95 07/28/20 20:30 97.9 F 94 20 119/66 95 Weight Weight 67.358 kg I&O: 07/27/20 07/28/20 07/29/20 06:59 06:59 06:59 Intake Total 950 Output Total 800 Balance 150 Result Diagrams: 07/28/20 04:57 07/28/20 04:57 Phys Exam - Physical Examination Constitutional: NAD HEENT: moist MMs subtle temporal wasting Respiratory: wheezing present 94% on room air Cardiovascular: RRR, no significant murmur Gastrointestinal: soft, positive bowel sounds Musculoskeletal: no edema Neurological: moves all 4 limbs Psychiatric: normal affect, A&O x 3 Skin: no rash Dx/Plan - Plan Plan: 70 yo M with a history of COPD and CABG (2005) presenting for increasing SOB over past 10 days. COPD exacerbation Started on nebulizers after admission screen negative for covid on 07/28. No longer requiring O2. -duonebs q4hr -albuterol inhaler q2hr prn -prednisone (3/5) -azithromycin (2/5) -would recommend starting controller medications including spiriva and symbicort upoon discharge CAD w/ ACS r/o History of CABG in 2005. Complaining of chest pressure when coughing. EKG neg, BNP 196.7. Trop negative x 3. - low suspicion of ACS given negative EKG and troponins x 3, monitor for symptom s Weight Loss Consider COPD cachexia vs malignancy. -self reported 20lb weight loss over 4-5 months -may consider CT of chest to screen for lung cancer given patient's smoking history Hx of HTN -Continue home meds Hx of HLD -Continue home meds GERD -Continue home meds Anxiety -takes lorazepam prn at home -aware, will evaluate and treat if necessary during hospitalization Code: FULL PCP: DAKOTA DVT: lovenox Diet: HH Dispo: Oli pending clinical improvement
[2020-07-29] MEDS: predniSONE 20 MG TAB PO SCH (08:42)
[2020-07-29] MEDS: Enoxaparin Sodium 40 MG/0.4 ML SYRINGE SC SCH (08:42)
[2020-07-29] MEDS: Aspirin 81 mg Enteric Coated Tablet PO SCH (08:42)
[2020-07-29] MEDS: Azithromycin 250 MG TAB PO SCH (08:42)
[2020-07-29] MEDS: Methocarbamol 500 MG TAB PO SCH ×3 (08:42→20:37)
[2020-07-29] MEDS: Metoprolol Tartrate 25 MG TAB PO SCH ×2 (08:42→20:37)
[2020-07-29] MEDS: Multivitamin W/ Minerals 1 TAB PO SCH (08:49)
[2020-07-29] MEDS: Lorazepam 0.5 MG TAB PO PRN ×2 (09:26→20:37)
[2020-07-29] MEDS: Famotidine 20 MG TAB PO PRN (09:26)
--- NOTE | 2020-07-29 13:52 | PRG ---
DATE OF SERVICE: 07/29/2020 I have examined Mr. Mckeon. I have discussed his case with Dr. Thais Fritz and agree with her assessment and plan. Mr. Mckeon states this morning, he feels better. He is less short of breath after a couple of dosages of steroids. His lungs still demonstrate a few expiratory wheezes, but he is in no distress and is not using accessory muscles. His COVID test was negative. I believe, he is nearing time for discharge probably in a day or two. I would recommend that in addition to his usual rescue inhaler that we add Symbicort and Spiriva. If Spiriva is used, he should probably not use Combivent with it. He could reduce himself to a rescue inhaler consisting of albuterol only. Job ID: [id number]
[2020-07-29] MEDS: Ipratropium Oral Inhaler INH SCH ×2 (14:36→18:58)
[2020-07-29] MEDS: Mometasone 200 MCG/Formoterol 5 MCG 120 PUFF INHALER INH SCH (18:58)
[2020-07-29] MEDS: Atorvastatin Calcium 40 MG TAB PO SCH (20:36)
[2020-07-29] MEDS: Nicotine 14 MG PATCH TD SCH (20:37)
[2020-07-29] MEDS: Benzonatate 100 MG CAP PO PRN (20:41)
[2020-07-30] MEDS: Albuterol 200 PUFF (6.7GM INHALER) INH PRN (00:30)
[2020-07-30] MEDS: Albuterol 200 PUFF (6.7GM INHALER) INH SCH ×2 (02:10→07:25)
--- NOTE | 2020-07-30 06:20 | PDOC.FM ---
- Subjective Subjective: No acute overnight events. Only required one nebulizer treatment overnight. Feeling better this AM. No SOB at rest, no wheezing this morning, no chest pains. - Objective Vital Signs & Weight: Vital Signs (12 hours) Temp Pulse Resp BP Pulse Ox 07/30/20 04:00 97.7 F 66 20 131/69 93 L 07/30/20 02:07 84 20 94 L 07/29/20 20:34 97.6 F 80 18 121/60 93 L 07/29/20 18:58 65 24 H 94 L Weight Weight 67.358 kg I&O: 07/28/20 07/29/20 07/30/20 06:59 06:59 06:59 Intake Total 1430 562 Output Total 1150 Balance 280 562 Result Diagrams: 07/28/20 04:57 07/28/20 04:57 Phys Exam - Physical Examination Constitutional: NAD HEENT: moist MMs Respiratory: clear to auscultation bilateral Cardiovascular: RRR, no significant murmur Gastrointestinal: soft, non-tender, no distention, positive bowel sounds Musculoskeletal: no edema, pulses present Neurological: non-focal, moves all 4 limbs Psychiatric: A&O x 3 Skin: no rash Dx/Plan - Plan Plan: 70 yo M with a history of COPD and CABG (2005) presenting for increasing SOB over past 10 days. COPD exacerbation Started on nebulizers after admission screen negative for covid on 07/28. No longer requiring O2. - prednisone (day 3/5) and azithromycin (day 3/5) - albuterol inhaler PRN - duonebs PRN - atrovent and dulera scheduled - would recommend starting controller medications including spiriva and symbicort upon; will need home inhaler switched from combivent to albuterol with starting these medications CAD w/ ACS r/o History of CABG in 2005. Complaining of chest pressure when coughing. EKG neg, BNP 196.7. Trop negative x 3. - low suspicion of ACS given negative EKG and troponins x 3, monitor for symptoms Weight Loss Consider COPD cachexia vs malignancy. -self reported 20lb weight loss over 4-5 months -may consider CT of chest to screen for lung cancer given patient's smoking history Hx of HTN -Continue home meds Hx of HLD -Continue home meds GERD -Continue home meds Anxiety -takes lorazepam prn at home -aware, will evaluate and treat if necessary during hospitalization Code: FULL PCP: DAKOTA DVT: lovenox Diet: HH Dispo: likely discharge to home soon
[2020-07-30] MEDS: Ipratropium Oral Inhaler INH SCH ×3 (07:25→15:17)
[2020-07-30] MEDS: Mometasone 200 MCG/Formoterol 5 MCG 120 PUFF INHALER INH SCH (07:25)
[2020-07-30] MEDS ORDERED: Azithromycin 250 MG TAB PO SCH (09:00)
[2020-07-30] MEDS: Methocarbamol 500 MG TAB PO SCH ×2 (09:04→15:54)
[2020-07-30] MEDS: Aspirin 81 mg Enteric Coated Tablet PO SCH (09:05)
[2020-07-30] MEDS: predniSONE 20 MG TAB PO SCH (09:05)
[2020-07-30] MEDS: Multivitamin W/ Minerals 1 TAB PO SCH (09:06)
[2020-07-30] MEDS: Metoprolol Tartrate 25 MG TAB PO SCH (09:06)
[2020-07-30] MEDS: Enoxaparin Sodium 40 MG/0.4 ML SYRINGE SC SCH (09:06)
[2020-07-30] MEDS: Lorazepam 0.5 MG TAB PO PRN ×2 (09:10→15:54)
[2020-07-30] MEDS: Benzonatate 100 MG CAP PO PRN (09:12)
[2020-07-30 12:20] VITALS: TEMP 97.8
--- NOTE | 2020-07-30 14:27 | PRG ---
DATE OF SERVICE: 07/30/2020 Mr. Mckeon looks and feels much better. He is no longer wheezing. He will be discharged. We will add to his rescue regimen, Symbicort and Spiriva. Job ID: [id number]
[2020-07-30 15:04] VITALS: BP 114/85
--- NOTE | 2020-07-31 14:30 | DIS ---
DATE OF ADMISSION: 07/27/2020 DATE OF DISCHARGE: 07/30/2020 RESIDENT: Thais Fritz DO. Admission attending: Dr. Mayo Discharge attending: Dr. Mayo CONSULTS: None. PROCEDURES: None. PRIMARY DIAGNOSIS: Chronic obstructive pulmonary disease exacerbation. SECONDARY DIAGNOSES: 1. Coronary artery disease. 2. Hypertension. 3. Hyperlipidemia. 4. Gastroesophageal reflux disease. 5. Anxiety. 6. Weight loss. DISCHARGE MEDICATIONS: 1. Theragran-M one tab p.o. daily. 2. Ranitidine 150 mg p.o. b.i.d. p.r.n. 3. MiraLAX 17 g p.o. daily p.r.n. 4. Robaxin 500 mg p.o. t.i.d. 5. Isosorbide mononitrate ER 30 mg p.o. daily. 6. Atorvastatin 80 mg p.o. h.s. 7. Aspirin 81 mg p.o. daily. 8. Metoprolol tartrate 25 mg p.o. b.i.d. 9. Benzonatate 100 mg p.o. t.i.d. p.r.n. 10. Lorazepam 0.5 mg p.o. t.i.d. p.r.n. 11. Nitrostat 0.4 mg sublingual q.5 minutes p.r.n. 12. Dulera 200 mcg/5 mcg inhaler two puffs b.i.d. 13. Albuterol inhaler two puffs q.4 hours p.r.n. 14. Spiriva Respimat two inhalations daily. 15. Levaquin 500 mg p.o. daily for five days. 16. Ipratropium/albuterol nebulizer solution 3 mL nebulizer q.4 hours p.r.n. 17. Prednisone 40 mg p.o. q.a.m. with meals for three days. Discontinued medications: 1. azithromycin, 2. Omnicef. 3. The patient also advised to discontinue his Combivent inhaler and use the albuterol inhaler instead because he is starting the Spiriva as a new medication. HOSPITAL COURSE: This is a 70-year-old male with a past history of COPD, hypertension, hyperlipidemia, [place], CABG, CAD, and GERD, who presented with shortness of breath of 10 days duration requiring him to use his home nebulizer up to 10 times a day. He reported desaturation to 85% at home, more shortness of breath with walking and some pressure inside of his chest, which caused him to come to the hospital. He is also reporting a significant amount of weight loss over the last four or five months. Chest x-ray was performed which was not suggestive of an acute cardiopulmonary process. He was admitted for COPD exacerbation and started on albuterol inhaler, prednisone, and azithromycin. We were unable to obtain a rapid COVID screen for this patient and as such, we were unable to begin nebulizer treatments on admission. However, the following day with his COVID test came back negative. He was started on DuoNebs as well. The patient was not on any controller medications in the outpatient setting. It sounds like he had tried these in the past, but did not understand that they were for daily use and not for p.r.n. use and as such, he was not compliant with them. This was discussed with the patient. He was started on controller medicine here in the hospital and was discharged with new prescriptions for Dulera and Spiriva. Due to his complaints of chest pressure with coughing when he first came in, his troponins were trended which were negative. He was monitored on telemetry and had no events. He did not have any signs of acute coronary artery syndrome during this admission. He also reports symptoms of weight loss over the past several months. He is eating and drinking fine. Would consider COPD cachexia versus possible malignancy given the patient's smoking history. Recommend that he follow up with his PCP at the [facility] for further evaluation and screening for lung cancer. After being started on controller medications and receiving nebulizer treatment for his COPD exacerbation, the patient's wheezing improved. He is feeling better and did not require any further supplemental oxygen. Ultimately, he was discharged to home in stable condition with new medications including Dulera and Spiriva as well as albuterol for his COPD. He was instructed to stop his Combivent as this should not be using combination with the Spiriva. He was also sent home with continued antibiotics and prednisone to treat his COPD exacerbation, although it does not appear that he had any signs or symptoms of a bacterial pneumonia contributing to this process. DISPOSITION: Stable. DISCHARGE INSTRUCTIONS: 1. Location: Home. 2. Diet: Heart healthy. 3. Activity: As tolerated. 4. [facility] Job ID: [id number] MTDD
--- NOTE | 2020-08-01 13:26 | EKG ---
Test Reason : Blood Pressure : / mmHG Vent. Rate : 089 BPM Atrial Rate : 089 BPM P-R Int : 184 ms QRS Dur : 140 ms QT Int : 420 ms P-R-T Axes : 106 270 043 degrees QTc Int : 511 ms Suspect arm lead reversal, interpretation assumes no reversal Normal sinus rhythm Right bundle branch block Inferior infarct , age undetermined Anterior infarct , age undetermined Abnormal ECG Confirmed by ERIC TALAVERA DO ([id number]), newspaper editor managing JELANI LARSON ([id number]) on 08/01/2020 1:25:58 PM Referred By: Confirmed By:ERIC TALAVERA DO
--- NOTE | 2020-08-01 13:26 | EKG ---
Test Reason : Blood Pressure : / mmHG Vent. Rate : 081 BPM Atrial Rate : 081 BPM P-R Int : 192 ms QRS Dur : 134 ms QT Int : 422 ms P-R-T Axes : 081 -88 059 degrees QTc Int : 490 ms Sinus rhythm with occasional Premature ventricular complexes Left axis deviation Right bundle branch block Inferior infarct , age undetermined Anterior infarct , age undetermined Abnormal ECG Confirmed by ERIC TALAVERA DO ([id number]), videotape editor JELANI LARSON ([id number]) on 08/01/2020 1:26:14 PM Referred By: Confirmed By:ERIC TALAVERA DO
== END 2020-07-30 16:35 | disposition home or self-care (01) | DRG 191 ==
LOC: ERS 12:49 → 2SW 15:24 → OBSVTOIN 15:24 → 2NO 07-28 20:26
PROVIDERS: ADMIT Family Medicine; ATTEND Family Medicine
DX: J44.1 Chronic obstructive pulmonary disease with (acute) exacerbation (principal); R64 Cachexia; I10 Essential (primary) hypertension; E78.5 Hyperlipidemia, unspecified; I25.10 Atherosclerotic heart disease of native coronary artery without angina pectoris; K21.9 Gastro-esophageal reflux disease without esophagitis; Z20.828 Contact with and (suspected) exposure to other viral communicable diseases; I25.2 Old myocardial infarction; Z95.1 Presence of aortocoronary bypass graft; Z79.82 Long term (current) use of aspirin; Z79.899 Other long term (current) drug therapy; Z79.51 Long term (current) use of inhaled steroids; Z79.52 Long term (current) use of systemic steroids; E78.00 Pure hypercholesterolemia, unspecified; F17.210 Nicotine dependence, cigarettes, uncomplicated; F41.9 Anxiety disorder, unspecified; Z68.21 Body mass index [BMI] 21.0-21.9, adult
CPT/HCPCS: 36415; 71045; 80048; 80053; 83880; 84145; 84484; 85025; 87635; 93005; 94760; 96372; 96374; G0378; J1650; J2930; J7512; J7620; U0003

== ENCOUNTER 2020-09-19 18:20 | Inpatient (IN) | payer OTHER ==
[2020-09-19] MEDS ORDERED: Heparin 25,000 units/D5W 500 ML ONE (18:38)
[2020-09-19] MEDS ORDERED: Heparin 10,000 UNITS/ 10 ML VIAL ONE (18:39)
[2020-09-19 18:40] LABS: #Basophils 0.1 thou/uL (0.0-0.2); #Eosinphils 0.8 thou/uL (0.0-0.7); #Neutrophils 7.1 thou/uL (1.40-6.50); %Basophils 0.7 % (0.0-1.0); %Eosinophils 6.5 % (0.0-10.0); %Monocytes 8.4 % (0.0-10.0); %Neutrophils 59.4 % (42.0-75.0); Mean Corpuscular HGB CONC 33.3 g/dL (32.0-36.0); Mean Corpuscular Hemoglobin 31.8 pg (27.0-31.0); Mean Corpuscular Volume 95.4 fL (78.0-98.0); Mean Platelet Volume 8.2 fL (7.4-10.4); Platelet Count 197 thou/uL (130-400); RBC Distribution Width 12.6 % (11.5-14.5); Red Blood Cell (RBC) Count 5.05 mill/uL (4.70-6.10)
[2020-09-19 18:46] LABS: INR-International Normal Ratio 1.1; Prothrombin Time 14.1 sec (12.0-14.7)
[2020-09-19 18:52] LABS: PTT 166.5 sec (22.9-36.1)
[2020-09-19] MEDS ORDERED: Morphine 4 MG/ML VIAL ONE (18:53)
--- NOTE | 2020-09-19 18:57 | RAD ---
EXAM: CHEST ONE VIEW PORTABLE: 09/19/20 HISTORY: STEMI. COMPARISON: 07/27/20. FINDINGS: Postop midline sternotomy. Left hemidiaphragm elevation, stable. Increased linear and interstitial ma rkings bilaterally, stable. Postop midline sternotomy. IMPRESSION: No significant acute intrathoracic disease. Stable left hemidiaphragm elevation and increased marking s bilaterally. No significant new process. POS: RRE
[2020-09-19 19:01] LABS: ALT (SGPT) 22 U/L (8-55); AST (SGOT) 18 U/L (5-34); Albumin 3.9 g/dL (3.4-4.8); Alkaline Phosphatase 71 U/L (40-110); Anion Gap 17 mmol/L (10-20); BUN (Urea Nitrogen) 15 mg/dL (8.4-25.7); Bilirubin, Total 0.3 mg/dL (0.2-1.2); CK (CPK) 115 U/L (30-200); Calc. Creatinine Clearance 0 mL/min (70-130); Calcium 8.1 mg/dL (7.8-10.44); Carbon Dioxide 20 mmol/L (23-31); Chloride 106 mmol/L (98-107); Globulin 2.8 g/dL (2.4-3.5); Glucose 116 mg/dL (83-110); Potassium 4.5 mmol/L (3.5-5.1); Protein, Total 6.7 g/dL (5.8-8.1); Sodium 138 mmol/L (136-145)
[2020-09-19] MEDS ORDERED: methylPREDNISolone Sod Succ/PF 125 MG/2 ML VIAL ONE (19:23)
--- NOTE | 2020-09-19 19:51 | CON ---
DATE OF CONSULTATION: HISTORY OF PRESENT ILLNESS: The patient is a 70-year-old gentleman who presented with acute onset of dyspnea and had chest discomfort. The patient has a long history of coronary artery disease, status post coronary artery bypass graft surgery x4 in 1995. He states he subsequently has had PTCA and stent placement many years ago. The patient states two years ago at the [facility], he underwent a catheterization and was found to have no lesions amenable for coronary intervention. The patient was followed at the [facility]. He also has severe COPD. The patient was recently in the hospital with COPD exacerbation. Today, the patient markedly dyspneic. His blood pressure became elevated. He took a nitroglycerin after he developed midsternal chest discomfort. His heart rate remained elevated. He arrived in the emergency room as a possible acute myocardial infarction. The patient states he is breathing much better. He denies having any present chest discomfort. PAST MEDICAL HISTORY: 1. Coronary artery disease. 2. Hypertension. 3. COPD. 4. Ischemic cardiomyopathy. PAST SURGICAL HISTORY: Coronary artery bypass surgery, hand surgery, and knee surgery. SOCIAL HISTORY: Smokes tobacco. FAMILY HISTORY: No strong family history of heart disease. ALLERGIES: NO KNOWN DRUG ALLERGIES. MEDICATIONS: See nursing list. PHYSICAL EXAMINATION: GENERAL AND VITAL SIGNS: This is an anxious gentleman, in acute distress with a blood pressure of 120/60 on IV nitroglycerin. NECK: No jugular venous distention. LUNGS: Decreased breath sounds bilateral. HEART: Regular rate and rhythm. Normal S1, S2. ABDOMEN: Nondistended. EXTREMITIES: Mild bilateral edema. LABORATORY DATA: Sodium 138, potassium 4.5, chloride 106, bicarbonate 20, BUN 15, creatinine 1.0. Troponin was less than 0.01. White blood cell count 12.0, hemoglobin 16.0, hematocrit 48.1, and platelets are 197. IMPRESSION: 1. Hypertensive crisis. 2. Chronic obstructive pulmonary disease. 3. History of coronary artery bypass surgery. 4. Chronic obstructive pulmonary disease. This gentleman presents with hypertensive crisis. His EKG showed no acute changes. The initial troponin level was normal. The patient is on heparin and IV nitroglycerin. He is undergoing nebulizer treatments. We will follow this patient with you through his hospitalization. Critical care time 45 minutes. Job ID: [id number] [facility]
[2020-09-19 20:55] LABS: Bacteria/HPF None Seen HPF (None Seen); Bilirubin Negative (Negative); Blood, Urine Trace (Negative); Clarity Clear (Clear); Glucose, Urine (Dipstick) Normal (Negative); Ketone, Urine Negative (Negative); Leukocyte Negative Leu/uL (Negative); Nitrite Negative (Negative); Protein, Urine (Dipstick) 10 mg/dL (Neg-Trace); RBC/HPF 0-3 HPF (0-3); Specific Gravity, Urine 1.013 (1.002-1.036); Squamous Epithelial 0-3 HPF (0-3); Urobilinogen Normal mg/dL (Less than 2); WBC/HPF 0-3 HPF (0-3)
[2020-09-19] MEDS ORDERED: Acetaminophen 325 MG TAB PO PRN (20:58)
[2020-09-19] MEDS ORDERED: Promethazine HCl 12.5 MG in Sodium Chloride 0.9% 50 ML IVPB PRN (20:59)
[2020-09-19] MEDS ORDERED: Ondansetron PF 4 MG/2 ML Vial IVP PRN (20:59)
[2020-09-19] MEDS ORDERED: Guaifenesin DM 100-10/5 ML UDCUP PO PRN (20:59)
[2020-09-19] MEDS ORDERED: Labetalol HCl 100 MG/20 ML VIAL SLOW IVP PRN (20:59)
[2020-09-19] MEDS ORDERED: cloNIDine 0.1 MG TAB PO PRN (20:59)
[2020-09-19] MEDS ORDERED: HYDROcodone/Acetaminophen 5/325 mg Tablet PO PRN (20:59)
[2020-09-19] MEDS ORDERED: Morphine 2 MG/ML VIAL SLOW IVP PRN (20:59)
[2020-09-19] MEDS ORDERED: cefTRIAXone\\ROCEPHIN 1 GM in Sodium Chloride 0.9% 100 ML IVPB SCH (21:00)
[2020-09-19] MEDS ORDERED: Electrolyte Replacement Protocol 1 EACH FS SCH (21:00)
[2020-09-19] MEDS ORDERED: Heparin 5,000 UNITS/ML VIAL SC SCH (21:00)
[2020-09-19] MEDS ORDERED: Azithromycin 500 MG in Syringe 0 ML IVPB SCH (21:00)
--- NOTE | 2020-09-19 21:06 | PDOC.HHP ---
Hospitalist HPI - History of Present Illness Shortness of breath History of Present Illness: Patient is a 70 year old male with PMH COPD, chronic bronchitis, HTN, HLD, AL, CABG, CAD, and GERD who presents to ED for shortness of breath, chest pain. Patient reports around 4:30pm developed a pressure like substernal chest pain and shortness of breath. This is similar to previous chest pain he has had, and he believes the cause of chest pain is anxiety, still 3/10 now. He took NTG at home and ASA given in EMS. 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 He was placed on nitroglycerine drip for HTN urgenct and started on heparin drip as well. He was wheezing, and was placed on BIPAP initially though symptoms have already improved after ED interventions. CXR reports no acute intrathoracic disease. ED discussed case with Dr Putnam over phone, who recommended heparin gtt. He was also seen by Dr Luna in person. Patient also given steroids, duoneb and levaquin for suspected COPD exacerbation. Hospitalist ROS - Review of Systems Constitutional: reports: weakness, malaise. denies: fever, chills, sweats, other Eyes: denies: pain, vision change, conjunctivae inflammation, eyelid inflamm ation, redness, other ENT: denies: ear pain, ear discharge, nose pain, nose discharge, nose congestion, mouth pain, mouth swelling, throat pain, throat swelling, other Respiratory: reports: cough, shortness of breath, wheezing. denies: dry, hemoptysis, SOB with excertion, pleuritic pain, sputum, other Cardiovascular: reports: chest pain. denies: palpitations, orthopnea, paroxysmal noc. dyspnea, edema, light headedness, other Gastrointestinal: denies: nausea, vomiting, abdominal pain, diarrhea, constipation, melena, hematochezia, other Genitourinary: denies: dysuria, frequency, incontinence, hematuria, retention, other Musculoskeletal: denies: neck pain, shoulder pain, arm pain, back pain, hand pain, leg pain, foot pain, other Skin: denies: rash, lesions, yaya, bruising, other Neurological: denies: weakness, numbness, incoordination, change in speech, confusion, seizures, other All other systems reviewed; all pertinent +/- noted in HPI/Subj - Medication Medications: albuterol aerosol : Strength - 90 mcg : INHALATION Patient Dose: 1 mcg Nebulize once a day PRN. aspirin oral tablet : Strength - 81 mg : ORAL Patient Dose: 1 mg Oral once a day. atorvastatin tablet : Strength - 80 mg : ORAL Patient Dose: 1 mg Oral once a day (at bedtime). benzonatate capsule : Strength - 100 mg : ORAL Patient Dose: 1 mg Oral 3 times a day (with meals). isosorbide mononitrate tablet extended release 24 hr : Strength - 30 mg : ORAL Patient Dose: 1 mg Oral once a day PRN. methocarbamol oral tablet : Strength - 500 mg : ORAL Patient Dose: 1 mg Oral 3 times a day. metoprolol tartrate oral tablet : Strength - 50 mg : ORAL Patient Dose: 1 mg Oral 2 times a day. polyethylene glycol 3350(bulk) granules : MISCELLANEOUS Patient Dose: 1 g Oral once a day PRN. raNITIdine oral capsule : Strength - 150 mg : ORAL Patient Dose: 1 mg Oral every 12 hours PRN. Hospitalist History - Past Medical History Psych: reports: Anxiety Musculoskeletal: reports: Other (muscle spasms) Other Medical History: AL, COPD, bronchitis, CAD, HTN, HLD, GERD - Past Surgical History Past Surgical History: reports: CABG (Quadruple bypass (1995)), Other (Right eye biopsy (benign)) Other Surgical History: stents, CABG (2005) - Family History Other Family History: Heart disease, Dad - emphysema - Social History Alcohol: reports: None Drugs: reports: none Occupation: Lives in [place], disability, Other Social History: Lives alone. . [employer], seen at the [place]. /[employer]PPD for 60 years, denies alcohol, marijuana or drug use - Exam General Appearance: NAD, awake alert General - other findings: on BIPAP, anxious, no distress Eye: PERRL, anicteric sclera ENT: normocephalic atraumatic, no oropharyngeal lesions, moist mucosa Neck: supple, symmetric, no JVD, no thyromegaly, no lymphadenopathy, no carotid bruit Heart: RRR, no murmur, no gallops, no rubs, normal peripheral pulses Respiratory: wheezes Gastrointestinal: soft, non-tender, non-distended, normal bowel sounds, no pal pable masses, no hepatomegaly, no splenomegaly, no bruit Extremities: no cyanosis, no clubbing, no edema Skin: normal turgor, no lesions, no rashes Neurological: cranial nerve grossly intact, normal sensation to touch, no wea kness, no focal deficits, no new deficit Musculoskeletal: normal tone, normal strength, no muscle wasting Psychiatric: normal affect, normal behavior, A&O x 3 Hospitalist Results - Labs Result Diagrams: 09/19/20 18:22 09/19/20 18:22 Lab results: WBC 12.0 thou/uL (4.8-10.8) H 09/19/20 18:22 Hgb 16.0 g/dL (14.0-18.0) 09/19/20 18:22 Hct 48.1 % (42.0-52.0) 09/19/20 18:22 MCV 95.4 fL (78.0-98.0) 09/19/20 18:22 Plt Count 197 thou/uL (130-400) 09/19/20 18:22 Neutrophils % 59.4 % (42.0-75.0) 09/19/20 18:22 Sodium 138 mmol/L (136-145) 09/19/20 18:22 Potassium 4.5 mmol/L (3.5-5.1) 09/19/20 18:22 Chloride 106 mmol/L (98-107) 09/19/20 18:22 Carbon Dioxide 20 mmol/L (23-31) L 09/19/20 18:22 BUN 15 mg/dL (8.4-25.7) 09/19/20 18:22 Creatinine 1.00 mg/dL (0.7-1.3) 09/19/20 18:22 Glucose 116 mg/dL (83-110) H 09/19/20 18:22 Calcium 8.1 mg/dL (7.8-10.44) 09/19/20 18:22 Total Bilirubin 0.3 mg/dL (0.2-1.2) 09/19/20 18:22 AST 18 U/L (5-34) 09/19/20 18:22 ALT 22 U/L (8-55) 09/19/20 18:22 Alkaline Phosphatase 71 U/L (40-110) 09/19/20 18:22 Creatine Kinase 115 U/L (30-200) 09/19/20 18:22 Troponin I Less than 0.010 ng/mL (< 0.028) 09/19/20 18:22 B-Natriuretic Peptide 137.3 pg/mL (0-100) H 09/19/20 18:22 Serum Total Protein 6.7 g/dL (5.8-8.1) 09/19/20 18: Albumin 3.9 g/dL (3.4-4.8) 09/19/20 18:22 Urine Ketones Negative mg/dL (Negative) 09/19/20 20:40 Urine Blood Trace (Negative) A 09/19/20 20:40 Urine Nitrite Negative (Negative) 09/19/20 20:40 Ur Leukocyte Esterase Negative [place]/uL (Negative) 09/19/20 20:40 Urine RBC 0-3 HPF (0-3) 09/19/20 20:40 Urine WBC 0-3 HPF (0-3) 09/19/20 20:40 Ur Squamous Epith Cells 0-3 HPF (0-3) 09/19/20 20:40 Urine Bacteria None Seen HPF (None Seen) 09/19/20 20:40 Additional comment: VITAL SIGNS Sat Sep 19, 2020 21:23 ABI Ellis Jordan BP: 130/80 MAP: 96 Pulse: 87 Resp: 22 Pain: 1 O2 sat: 100 on (4L Oxygen) Time: 09/19/2020 21:23. - EKG Interpretation EK bpm, sinus, QRS 138, QTc 565, RBBB, no stemi, Dr Putnam reviewed with ED physician. Hospitalist H&P A/P - Plan Plan: Patient is a 70 year old male with PMH COPD, chronic bronchitis, HTN, HLD, AL, CABG, CAD, and GERD who presents to ED for shortness of breath, admitted with following diagnoses # acute hypoxic respiratory failure - patient with history of COPD and wheezing, also with HTN emergency. admitted to IMCU, on BIPAP and NTG drip in ED. # COPD w/ exacerbation # sepsis secondary to COPD exacerbation # hypertensive emergency - admit to IMCU, wean BIPAP and NTG drip as tolerated - IV steroids - consult pulmonary medicine - scheduled/PRN duonebs and continue home nebs or formulary equivalent - treat empiric pneumonia/COPD exacerbation w/ ceftriaxone and doxycycline (doxycycline due to prolonged QTc) # history of CAD with CABG 2005 # CHF - complains of chest pain in ED, originally STEMI alert but ruled out - trend troponin, continue ASA, statin, beta edy, appreciate cardiology assi stance # HTN # HLD # GERD - continue home meds - pepcid # anxiety - IV ativan PRN for acute anxiety due to respiratory distress # leukocytosis - reactive # prolongued QTc - minimize QTc prolonging medications Code: FULL [facility] lovenox
[2020-09-19] MEDS ORDERED: Nitroglycerin 50 MG/250 ML BOT 250 ML IVPB SCH (21:15)
[2020-09-19] MEDS ORDERED: Aspirin 325 MG TAB PO SCH (21:15)
[2020-09-19] MEDS ORDERED: methylPREDNISolone Sod Succ/PF 125 MG/2 ML VIAL IVP SCH (22:00)
[2020-09-19 22:13] LABS: Troponin I 0.014 ng/mL (< 0.028)
[2020-09-19] MEDS: Famotidine 20 MG TAB PO SCH (23:36)
[2020-09-20] MEDS ORDERED: Magnesium 2 GM/50 ML 2 GM in Premix Bag 1 BAG IVPB SCH (00:15)
[2020-09-20] MEDS ORDERED: Doxycycline 100 MG CAP PO SCH ×2 (00:30→09:00)
[2020-09-20] MEDS ORDERED: Heparin 10,000 UNITS/ 10 ML VIAL SLOW IVP SCH (00:45)
[2020-09-20] MEDS ORDERED: Heparin 25,000 units/D5W 500 ML IVPB SCH (00:45)
[2020-09-20 00:46] VITALS: BMI 23.2
[2020-09-20] MEDS ORDERED: cefTRIAXone\\ROCEPHIN 1 GM in Sodium Chloride 0.9% 100 ML IVPB SCH (01:00)
[2020-09-20 01:20] LABS: PTT 228.3 sec (22.9-36.1)
[2020-09-20 04:17] LABS: #Lymphocytes 0.6 thou/uL (1.20-3.40); #Monocytes 0.1 thou/uL (0.11-0.59); #Neutrophils 4.7 thou/uL (1.40-6.50); %Basophils 0.2 % (0.0-1.0); %Eosinophils 0.5 % (0.0-10.0); %Lymphocytes 11.3 % (21.0-51.0); %Monocytes 0.9 % (0.0-10.0); %Neutrophils 87.1 % (42.0-75.0); Hemoglobin 15.2 g/dL (14.0-18.0); Mean Corpuscular HGB CONC 33.1 g/dL (32.0-36.0); Mean Corpuscular Volume 93.5 fL (78.0-98.0); Mean Platelet Volume 8.4 fL (7.4-10.4); Platelet Count 135 thou/uL (130-400); RBC Distribution Width 12.5 % (11.5-14.5); Red Blood Cell (RBC) Count 4.92 mill/uL (4.70-6.10); White Blood Cell (WBC) Count 5.4 thou/uL (4.8-10.8)
[2020-09-20 04:42] LABS: Anion Gap 15 mmol/L (10-20); BUN (Urea Nitrogen) 15 mg/dL (8.4-25.7); Calc. Creatinine Clearance 61 mL/min (70-130); Calcium 8.4 mg/dL (7.8-10.44); Carbon Dioxide 23 mmol/L (23-31); Chloride 101 mmol/L (98-107); Glucose 141 mg/dL (83-110); Magnesium 2.5 mg/dL (1.6-2.6); Potassium 5.3 mmol/L (3.5-5.1); Sodium 134 mmol/L (136-145)
[2020-09-20] MEDS: methylPREDNISolone Sod Succ/PF 125 MG/2 ML VIAL IVP SCH ×3 (04:51→20:48)
[2020-09-20] MEDS: Ipratropium Bromide 2.5 ml Neb NEB SCH ×4 (07:21→23:58)
[2020-09-20 07:37] LABS: SARS-CoV-2 MS2 Positive; SARS-CoV-2 N Gene Negative; SARS-CoV-2 S Gene Negative; SARS-CoV-2 by NAA Not Detected (NotDetected); SARS-CoV-2 orf1ab Negative
[2020-09-20] MEDS ORDERED: FLU VACC QS2020-21(65YR UP)/PF 240 MCG/0.7 ML SYRINGE IM ONE (09:00)
[2020-09-20] MEDS: Aspirin 81 mg Enteric Coated Tablet PO SCH (09:13)
[2020-09-20] MEDS: Metoprolol Tartrate 25 MG TAB PO SCH (09:13)
[2020-09-20] MEDS: Famotidine 20 MG TAB PO SCH ×2 (09:14→20:48)
[2020-09-20] MEDS: Lorazepam 2 MG/ML VIAL SLOW IVP PRN ×2 (09:33→17:59)
[2020-09-20] MEDS: Polyethylene Glycol 3350 17 GM Packet PO SCH (11:06)
--- NOTE | 2020-09-20 15:26 | PDOC.HOSPP ---
- Subjective Encounter Date: 09/20/20 Encounter Time: 13:00 Subjective: F/u : COPD and chest pain The patient states his chest pain has resolved. He is off the nitroglycerin drip . The patient states he has had COPD for 8 years. 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 Yesterday he noticed he was tachycardic with heart rate up to 137. He took aspirin, nitro and albuterol and his heart rate wasn't coming down so he called the ambulance. He was also unable to register a blood pressure THe patient is not on oxygen at home. He has a mild cough. He has not ambulated yet today - Objective Vital Signs & Weight: Vital Signs (12 hours) Temp Pulse Resp Pulse Ox 09/20/20 13:54 91 20 98 09/20/20 08:00 100 09/20/20 07:31 80 16 90 L 09/20/20 04:16 97.4 F L Weight Weight 157 lb 6.561 oz Most Recent Monitor Data Heart Rate from ECG 91 NIBP 147/80 NIBP BP-Mean 102 Respiration from ECG 21 SpO2 98 I&O: 09/19/20 09/20/20 09/21/20 06:59 06:59 06:59 Intake Total 1968 Output Total 2300 Balance -332 Result Diagrams: 09/20/20 03:52 09/20/20 03:52 Hospitalist ROS - Review of Systems Constitutional: denies: fever, chills - Medication Medications: Active Medications Generic Name Dose Route Start Last Admin Trade Name Freq PRN Reason Stop Dose Admin Albuterol/Ipratropium 3 ml 09/19/20 20:59 09/19/20 23:52 Ipratropium/Albuterol Sulfate 3 Ml Neb NEB 3 ml Q2H PRN Administration SOB &/or Wheezing Albuterol/Ipratropium 3 ml 09/20/20 07:00 09/20/20 13:54 Ipratropium/Albuterol Sulfate 3 Ml Neb NEB 3 ml [id number] GUANACO Administration Aspirin 81 mg 09/20/20 09:00 09/20/20 09:13 Aspirin 81 Mg Enteric Coated Tablet PO 81 mg DAILY GUANACO Administration Doxycycline Hyclate 100 mg 09/20/20 09:00 09/20/20 09:15 Doxycycline 100 Mg Cap PO 100 mg BID GUANACO Administration Famotidine 20 mg 09/19/20 21:00 09/20/20 09:14 Famotidine 20 Mg Tab PO 20 mg BID GUANACO Administration Heparin Sodium (Porcine) 0 units 09/20/20 00:45 09/20/20 11:02 Heparin 10,000 Units/ 10 Ml Vial SLOW IVP 2,322 units ASDIR GUANACO Administration Protocol Ceftriaxone Sodium 1 gm/ 100 mls @ 200 mls/hr 09/20/20 01:00 09/20/20 01:07 Sodium Chloride IVPB 100 mls 0100 GUANACO Administration Ipratropium [place] 2.5 ml 09/20/20 07:00 09/20/20 13:13 Ipratropium [place] 2.5 Ml Neb NEB Not Given [id number] GUANACO Isosorbide Mononitrate 30 mg 09/20/20 09:00 09/20/20 09:14 Isosorbide Mononitrate Er 30 Mg Tab PO 30 mg DAILY GUANACO Administration Lorazepam 0.5 mg 09/19/20 23:51 09/20/20 09:33 Lorazepam 2 Mg/Ml Vial SLOW IVP 0.5 mg Q6H PRN Administration Anxiety/Agitation Methylprednisolone Sodium Succinate 60 mg 09/20/20 04:00 09/20/20 11:58 Methylprednisolone Sod Succ/Pf 125 Mg/2 Ml Vial IVP 60 mg 0400,1200,2000 GUANACO Administration Metoprolol Tartrate 25 mg 09/20/20 09:00 09/20/20 09:13 Metoprolol Tartrate 25 Mg Tab PO 25 mg DAILY GUANACO Administration Polyethylene Glycol 17 gm 09/20/20 09:00 09/20/20 11:06 Polyethylene Glycol 3350 17 Gm Packet PO Not Given DAILY GUANACO - Exam General Appearance: NAD, awake alert Eye: PERRL, anicteric sclera Neck: no JVD Heart: RRR, no murmur, no gallops, no rubs Respiratory - other findings: wheezing bilaterally Gastrointestinal: soft, non-tender, non-distended, normal bowel sounds Extremities: no cyanosis, no clubbing, no edema Skin: normal turgor, no lesions, no rashes Neurological: cranial nerve grossly intact, normal sensation to touch, no weakness Hosp A/P - Plan Chest X ray: no significant disease This is a 70 year old male with history of COPD who presented to the ER with tachycardia, chest pain and shortness of breath. He was thought o have STEMI initially and was placed on heparin drip and nitroglycerin drip. He was also admitted for COPD exacerbation Acute hypoxic respiratory failure secondary to COPD exacerbation - continue IV steroids, he has been weaned down to room air -continue atrovent and albuterol prn. Add dulera bid - continue doxycycline. Discontinue ceftriaxone . COVId negative - will continue steroids for another day IV, transfer to medical floor. Case management consult for assistance with [facility] Chest pain - resolved - troponins negative. EKG showed possible mild ST elevation in II and III. Will repeat EKG - nitroglycerin drip discontinued. Will discontinue heparin drip, okay with cardiology CAD s/p CABG - continue aspirin, statin, coreg
[2020-09-20] MEDS: Albuterol Sulfate 2.5 mg/3 ml Neb NEB PRN ×2 (17:48→22:23)
[2020-09-20] MEDS: Mometasone 200 MCG/Formoterol 5 MCG 120 PUFF INHALER INH SCH (18:26)
[2020-09-20] MEDS: Atorvastatin Calcium 40 MG TAB PO SCH (20:48)
[2020-09-20] MEDS: Doxycycline 100 MG CAP PO SCH (20:48)
[2020-09-21] MEDS: Albuterol Sulfate 2.5 mg/3 ml Neb NEB PRN (02:22)
[2020-09-21] MEDS: methylPREDNISolone Sod Succ/PF 125 MG/2 ML VIAL IVP SCH ×2 (03:00→13:40)
[2020-09-21 04:06] LABS: #Lymphocytes 0.6 thou/uL (1.20-3.40); #Monocytes 0.3 thou/uL (0.11-0.59); %Basophils 0.6 % (0.0-1.0); %Lymphocytes 7.4 % (21.0-51.0); %Monocytes 3.2 % (0.0-10.0); %Neutrophils 88.8 % (42.0-75.0); Mean Corpuscular HGB CONC 33.4 g/dL (32.0-36.0); Mean Corpuscular Hemoglobin 30.9 pg (27.0-31.0); Mean Corpuscular Volume 92.4 fL (78.0-98.0); Mean Platelet Volume 8.4 fL (7.4-10.4); Platelet Count 131 thou/uL (130-400); RBC Distribution Width 12.4 % (11.5-14.5); Red Blood Cell (RBC) Count 4.52 mill/uL (4.70-6.10); White Blood Cell (WBC) Count 7.8 thou/uL (4.8-10.8)
[2020-09-21 04:24] LABS: Anion Gap 15 mmol/L (10-20); BUN (Urea Nitrogen) 29 mg/dL (8.4-25.7); Calc. Creatinine Clearance 47 mL/min (70-130); Calcium 8.4 mg/dL (7.8-10.44); Carbon Dioxide 24 mmol/L (23-31); Chloride 102 mmol/L (98-107); Glucose 164 mg/dL (83-110); Potassium 4.6 mmol/L (3.5-5.1); Sodium 136 mmol/L (136-145)
[2020-09-21] MEDS ORDERED: Magnesium 2 GM/50 ML 2 GM in Premix Bag 1 BAG IVPB SCH (06:45)
[2020-09-21] MEDS: Mometasone 200 MCG/Formoterol 5 MCG 120 PUFF INHALER INH SCH ×2 (07:04→18:14)
[2020-09-21] MEDS: Ipratropium Bromide 2.5 ml Neb NEB SCH ×4 (07:04→23:49)
[2020-09-21] MEDS: Doxycycline 100 MG CAP PO SCH ×2 (09:11→20:18)
[2020-09-21] MEDS: Aspirin 81 mg Enteric Coated Tablet PO SCH (09:11)
[2020-09-21] MEDS: Famotidine 20 MG TAB PO SCH ×2 (09:11→20:19)
[2020-09-21] MEDS: Metoprolol Tartrate 25 MG TAB PO SCH (09:11)
[2020-09-21] MEDS: Polyethylene Glycol 3350 17 GM Packet PO SCH (09:11)
[2020-09-21] MEDS: Lorazepam 2 MG/ML VIAL SLOW IVP PRN ×2 (09:20→20:32)
--- NOTE | 2020-09-21 14:07 | PDOC.HOSPP ---
- Subjective Encounter Date: 09/21/20 Encounter Time: 14:05 Subjective: F/u: COPD The patient is still wheezing significantly. He has been ambulating around the [place]. He doesn't wear oxygen at home and is currently on one liter. - Objective Vital Signs & Weight: Vital Signs (12 hours) Temp Pulse Pulse Pulse Resp BP Pulse Ox 09/21/20 12:00 98.5 F 85 18 125/68 95 09/21/20 10:56 107 H 22 H 93 L 09/21/20 09:56 81 117 H 09/21/20 08:00 98.9 F 98 18 141/67 H 95 09/21/20 07:04 81 20 94 L 09/21/20 04:00 98.6 F 93 16 132/73 97 09/21/20 02:36 94 L 09/21/20 02:22 98 22 H 94 L Pulse Ox Pulse Ox 09/21/20 12:00 09/21/20 10:56 09/21/20 09:56 93 L 89 L 09/21/20 08:00 09/21/20 07:04 09/21/20 04:00 09/21/20 02:36 09/21/20 02:22 Weight Weight 157 lb 6.561 oz Most Recent Monitor Data Heart Rate from ECG 85 NIBP 128/73 NIBP BP-Mean 91 Respiration from ECG 18 SpO2 95 I&O: 09/20/20 09/21/20 09/22/20 06:59 06:59 06:59 Intake Total 1968 200 450 Output Total 2300 900 Balance -332 -700 450 Result Diagrams: 09/21/20 03:52 09/21/20 03:52 Hospitalist ROS - Review of Systems Constitutional: denies: fever, chills - Medication Medications: Active Medications Generic Name Dose Route Start Last Admin Trade Name Freq PRN Reason Stop Dose Admin Albuterol Sulfate 2.5 mg 09/20/20 17:36 09/21/20 02:22 Albuterol Sulfate 2.5 Mg/3 Ml Neb NEB 2.5 mg Q2H PRN Administration Dyspnea/Wheezing/SOB Albuterol/Ipratropium 3 ml 09/20/20 07:00 09/21/20 10:56 Ipratropium/Albuterol Sulfate 3 Ml Neb NEB 3 ml [id number] GUANACO Administration Aspirin 81 mg 09/20/20 09:00 09/21/20 09:11 Aspirin 81 Mg Enteric Coated Tablet PO 81 mg DAILY GUANACO Administration Atorvastatin Calcium 80 mg 09/20/20 21:00 09/20/20 20:48 Atorvastatin Calcium 40 Mg Tab PO 80 mg HS GUANACO Administration Doxycycline Hyclate 100 mg 09/20/20 21:00 09/21/20 09:11 Doxycycline 100 Mg Cap PO 100 mg BID GUANACO Administration Famotidine 20 mg 09/19/20 21:00 09/21/20 09:11 Famotidine 20 Mg Tab PO 20 mg BID GUANACO Administration Ipratropium [place] 2.5 ml 09/20/20 07:00 09/21/20 10:48 Ipratropium [place] 2.5 Ml Neb NEB Not Given [id number] [facility] Isosorbide Mononitrate 30 mg 09/20/20 09:00 09/21/20 09:11 Isosorbide Mononitrate Er 30 Mg Tab PO 30 mg DAILY GUANACO Administration Lorazepam 0.5 mg 09/19/20 23:51 09/21/20 09:20 Lorazepam 2 Mg/Ml Vial SLOW IVP 0.5 mg Q6H PRN Administration Anxiety/Agitation Methylprednisolone Sodium Succinate 60 mg 09/20/20 04:00 09/21/20 13:40 Methylprednisolone Sod Succ/Pf 125 Mg/2 Ml Vial IVP 60 mg 0400,1200,2000 GUANACO Administration Metoprolol Tartrate 25 mg 09/20/20 09:00 09/21/20 09:11 Metoprolol Tartrate 25 Mg Tab PO 25 mg DAILY GUANACO Administration Mometasone Furoate/Formoterol Fumar 1 puff 09/20/20 18:30 09/21/20 07:04 Mometasone 200 Mcg/Formoterol 5 Mcg 120 Puff Inhaler INH 1 puff BID-RT GUANACO Administration Polyethylene Glycol 17 gm 09/20/20 09:00 09/21/20 09:11 Polyethylene Glycol 3350 17 Gm Packet PO Not Given DAILY GUANACO - Exam General Appearance: NAD, awake alert Eye: PERRL, anicteric sclera ENT: normocephalic atraumatic, no oropharyngeal lesions Neck: no JVD Heart: RRR, no murmur, no gallops, no rubs Respiratory: no rales, no ronchi Respiratory - other findings: diffuse wheezing Gastrointestinal: soft, non-tender, non-distended, normal bowel sounds Extremities: no cyanosis, no clubbing, no edema Skin: normal turgor, no lesions, no rashes Neurological: cranial nerve grossly intact, normal sensation to touch, no weakness Musculoskeletal: normal tone, normal strength, no muscle wasting Psychiatric: normal affect, normal behavior, A&O x 3 Hosp A/P - Plan Chest X ray: no significant disease This is a 70 year old male with history of COPD who presented to the ER with t achycardia, chest pain and shortness of breath. He was thought o have STEMI initially and was placed on heparin drip and nitroglycerin drip. He was also admitted for COPD exacerbation Acute hypoxic respiratory failure secondary to COPD exacerbation - continue IV steroids, will increase to 80 mg q6 hours - will obtain pulm consult, still has significant wheezing - check sputum culture - continue scheduled and prn breathing treatments Chest pain - resolved - troponins negative. EKG showed possible mild ST elevation in II and III. Will repeat EKG - nitroglycerin drip discontinued. Discontinued heparin drip, okay with cardiology CAD s/p CABG - continue aspirin, statin, coreg
--- NOTE | 2020-09-21 16:38 | EKG ---
Test Reason : Blood Pressure : / mmHG Vent. Rate : 085 BPM Atrial Rate : 085 BPM P-R Int : 176 ms QRS Dur : 152 ms QT Int : 424 ms P-R-T Axes : 036 -81 013 degrees QTc Int : 504 ms Poor data quality, interpretation may be adversely affected Normal sinus rhythm Left axis deviation Right bundle branch block Inferior infarct (cited on or before 27-JUL-2020) Probable anterior infarct Abnormal ECG When compared with ECG of 27-JUL-2020 15:12, Premature ventricular complexes are no longer Present Confirmed by DR. Raul DELEON ([id number]) on 09/21/2020 4:38:17 PM Referred By: [facility] Confirmed By:DR. Raul DELEON
[2020-09-21] MEDS ORDERED: Pantoprazole 40 MG VIAL IVP SCH (20:00)
[2020-09-21] MEDS: methylPREDNISolone Sod Succ 40 MG VIAL IVP SCH (20:13)
[2020-09-21] MEDS: Atorvastatin Calcium 40 MG TAB PO SCH (20:19)
--- NOTE | 2020-09-21 21:40 | CON ---
DATE OF CONSULTATION: HISTORY OF PRESENT ILLNESS: Kuldip Mckeon is a 70-year-old gentleman, who seeks care at the [facility] both here locally and in [place], said he had difficulty breathing over the last 24 hours with an elevated heart rate. He came to the ER and is now being admitted. We have been consulted regarding his pulmonary status. He smokes four cigarettes a day. He has longstanding history of a pack a day smoker for most of his life. He is not going to quit smoking, says it calms his lung down. He is feeling better right now without any associated chest pain, chills, sweats, or hemoptysis. In fact, he walked about 100 feet without getting too short of breath. PAST MEDICAL HISTORY: COPD with ongoing tobacco abuse. History of coronary artery disease, peripheral vascular disease, history of hyperlipidemia, high cholesterol, and hypertension. PAST SURGICAL HISTORY: Previous surgeries include previous bypass and multiple cardiac stents. HABITS: Alcohol, minimal. Tobacco, as noted. MEDICATIONS: Home medicine from the [facility] includes apparently; 1. Spiriva. 2. Dulera. 3. Metoprolol 25. 4. Robaxin. 5. Ativan 0.5. 6. Azmacort. 7. DuoNeb. 8. Aspirin. ALLERGIES: NONE. SOCIAL HISTORY: Unremarkable. REVIEW OF SYSTEMS: A 10-point negative. PHYSICAL EXAMINATION: VITAL SIGNS: Temperature 98, pulse saturation 90% on room air, and blood pressure 120/68. CHEST: No wheezing, no crackles. CARDIAC: Normal S1 and S2. No gallops. ABDOMEN: No masses. LABORATORY DATA: Creatinine 1.47. ASSESSMENT AND PLAN: Chronic obstructive pulmonary disease exacerbation, bronchitis, hypertension, and coronary artery disease. He is at his baseline. I would switch him over to oral prednisone and discharged home in the next 24 to 48 hours. Follow up with the [facility]. Consultation note, 70 minutes, 50% direct patient care. Job ID: [id number]
[2020-09-21 23:10] LABS: Creatinine, Urine 71.29 mg/dL (63-166)
[2020-09-22] MEDS: methylPREDNISolone Sod Succ 40 MG VIAL IVP SCH ×2 (00:32→06:19)
[2020-09-22 04:21] LABS: #Lymphocytes 0.4 thou/uL (1.20-3.40); #Monocytes 0.2 thou/uL (0.11-0.59); #Neutrophils 7.2 thou/uL (1.40-6.50); %Basophils 0.1 % (0.0-1.0); %Lymphocytes 5.5 % (21.0-51.0); %Monocytes 2.1 % (0.0-10.0); %Neutrophils 92.1 % (42.0-75.0); Mean Corpuscular HGB CONC 33.6 g/dL (32.0-36.0); Mean Corpuscular Hemoglobin 31.1 pg (27.0-31.0); Mean Corpuscular Volume 92.6 fL (78.0-98.0); Mean Platelet Volume 8.8 fL (7.4-10.4); Platelet Count 137 thou/uL (130-400); RBC Distribution Width 12.5 % (11.5-14.5); Red Blood Cell (RBC) Count 4.49 mill/uL (4.70-6.10); White Blood Cell (WBC) Count 7.8 thou/uL (4.8-10.8)
[2020-09-22 04:47] LABS: Anion Gap 13 mmol/L (10-20); BUN (Urea Nitrogen) 28 mg/dL (8.4-25.7); Calc. Creatinine Clearance 59 mL/min (70-130); Calcium 8.2 mg/dL (7.8-10.44); Carbon Dioxide 27 mmol/L (23-31); Chloride 103 mmol/L (98-107); Glucose 170 mg/dL (83-110); Magnesium 2.2 mg/dL (1.6-2.6); Potassium 4.2 mmol/L (3.5-5.1); Sodium 139 mmol/L (136-145)
[2020-09-22] MEDS: Lorazepam 2 MG/ML VIAL SLOW IVP PRN ×2 (06:26→20:07)
[2020-09-22] MEDS: Ipratropium Bromide 2.5 ml Neb NEB SCH ×3 (07:02→20:02)
[2020-09-22] MEDS: Mometasone 200 MCG/Formoterol 5 MCG 120 PUFF INHALER INH SCH ×2 (07:03→19:40)
[2020-09-22] MEDS: Albuterol Sulfate 2.5 mg/3 ml Neb NEB PRN ×2 (07:03→22:14)
[2020-09-22] MEDS: Metoprolol Tartrate 25 MG TAB PO SCH (08:27)
[2020-09-22] MEDS: Pantoprazole 40 MG VIAL IVP SCH ×2 (08:27→20:14)
[2020-09-22] MEDS: Famotidine 20 MG TAB PO SCH ×2 (08:27→20:11)
[2020-09-22] MEDS: Aspirin 81 mg Enteric Coated Tablet PO SCH (08:27)
[2020-09-22] MEDS: Polyethylene Glycol 3350 17 GM Packet PO SCH (08:28)
[2020-09-22] MEDS: Doxycycline 100 MG CAP PO SCH ×2 (09:00→20:11)
--- NOTE | 2020-09-22 10:59 | PRG ---
DATE OF SERVICE: 09/22/2020 OBJECTIVE: This morning, his temperature was , his pulse 88, sats 99% on room air, though when he walks, he desats in the mid 80s. Blood pressure 137/72. CHEST: Decreased breath sounds. No wheezing. CARDIAC: Normal S1, S2. No masses. ASSESSMENT: 1. Chronic obstructive pulmonary disease. 2. Tobacco abuse. 3. Major anxiety. PLAN: He can be discharged home any time. He wants portable low-flow O2. He is going to pay for it prescription given for this. Follow up with the [facility]. Job ID: [id number]
--- NOTE | 2020-09-22 17:14 | PDOC.HOSPP ---
- Subjective Encounter Date: 09/22/20 Encounter Time: 10:00 Subjective: F/u: COPD The patient's cough has improved, had some clear phlegm, sent for sputum culture. He ambulated and was found to desaturate to 88% on room air. He is willing to pay out of pocket for his oxygen He also was unable to afford inhalers at the [place], and he will get free dulera voucher - Objective Vital Signs & Weight: Vital Signs (12 hours) Temp Pulse Resp BP Pulse Ox 09/22/20 14:31 66 18 97 09/22/20 10:34 80 20 96 09/22/20 08:09 97.9 F 88 137/72 93 L 09/22/20 08:00 93 L 09/22/20 07:03 103 H 18 95 Weight Weight 157 lb 6.561 oz Most Recent Monitor Data Heart Rate from ECG 85 NIBP 128/73 NIBP BP-Mean 91 Respiration from ECG 18 SpO2 95 I&O: 09/21/20 09/22/20 09/23/20 06:59 06:59 06:59 Intake Total 200 1160 590 Output Total 900 750 Balance -700 410 590 Result Diagrams: 09/22/20 04:00 09/22/20 04:00 Hospitalist ROS - Review of Systems Constitutional: denies: fever, chills - Medication Medications: Active Medications Generic Name Dose Route Start Last Admin Trade Name Freq PRN Reason Stop Dose Admin Albuterol Sulfate 2.5 mg 09/20/20 17:36 09/22/20 07:03 Albuterol Sulfate 2.5 Mg/3 Ml Neb NEB 2.5 mg Q2H PRN Administration Dyspnea/Wheezing/SOB Albuterol/Ipratropium 3 ml 09/20/20 07:00 09/22/20 14:31 Ipratropium/Albuterol Sulfate 3 Ml Neb NEB 3 ml [id number] GUANACO Administration Aspirin 81 mg 09/20/20 09:00 09/22/20 08:27 Aspirin 81 Mg Enteric Coated Tablet PO 81 mg DAILY GUANACO Administration Atorvastatin Calcium 80 mg 09/20/20 21:00 09/21/20 20:19 Atorvastatin Calcium 40 Mg Tab PO 80 mg HS GUANACO Administration Doxycycline Hyclate 100 mg 09/20/20 21:00 09/22/20 09:00 Doxycycline 100 Mg Cap PO Not Given BID GUANACO Famotidine 20 mg 09/19/20 21:00 09/22/20 08:27 Famotidine 20 Mg Tab PO 20 mg BID GUANACO Administration Ipratropium [place] 2.5 ml 09/20/20 07:00 09/22/20 14:31 Ipratropium [place] 2.5 Ml Neb NEB Not Given [id number] GUANACO Isosorbide Mononitrate 30 mg 09/20/20 09:00 09/22/20 08:27 Isosorbide Mononitrate Er 30 Mg Tab PO 30 mg DAILY GUANACO Administration Lorazepam 0.5 mg 09/19/20 23:51 09/22/20 06:26 Lorazepam 2 Mg/Ml Vial SLOW IVP 0.5 mg Q6H PRN Administration Anxiety/Agitation Metoprolol Tartrate 25 mg 09/20/20 09:00 09/22/20 08:27 Metoprolol Tartrate 25 Mg Tab PO 25 mg DAILY GUANACO Administration Mometasone Furoate/Formoterol Fumar 1 puff 09/20/20 18:30 09/22/20 07:03 Mometasone 200 Mcg/Formoterol 5 Mcg 120 Puff Inhaler INH 1 puff BID-RT GUANACO Administration Pantoprazole Sodium 40 mg 09/22/20 09:00 09/22/20 08:27 Pantoprazole 40 Mg Vial IVP 40 mg Q12HR GUANACO Administration Polyethylene Glycol 17 gm 09/20/20 09:00 09/22/20 08:28 Polyethylene Glycol 3350 17 Gm Packet PO Not Given DAILY GUANACO - Exam General Appearance: NAD, awake alert Eye: PERRL, anicteric sclera ENT: normocephalic atraumatic, no oropharyngeal lesions Neck: no JVD Heart: RRR, no murmur, no gallops, no rubs Respiratory - other findings: mild wheezing Gastrointestinal: soft, non-tender, non-distended Extremities: no cyanosis, no clubbing, no edema Hosp A/P - Plan Chest X ray: no significant disease This is a 70 year old male with history of COPD who presented to the ER with tachycardia, chest pain and shortness of breath. He was thought o have STEMI initially and was placed on heparin drip and nitroglycerin drip. He was also admitted for COPD exacerbation Acute hypoxic respiratory failure secondary to COPD exacerbation - improved. Switched to oral prednisone. Pulmonary following, no additional recommendations - continue doxycycline - sputum culture pending - continue duonebs q4 and albuterol prn . Continue dulera bid - case management was consulted for setting up home oxygen Chest pain - resolved - troponins negative. EKG showed possible mild ST elevation in II and III. Repeat EKG unremarkable. - nitroglycerin drip discontinued. Discontinued heparin drip, okay with cardiology CAD s/p CABG - continue aspirin, statin, coreg Disposition: anticipate d/c tomorrow on home oxygen
[2020-09-22] MEDS: Atorvastatin Calcium 40 MG TAB PO SCH (20:11)
[2020-09-23] MEDS: Ipratropium Bromide 2.5 ml Neb NEB SCH ×3 (00:52→10:54)
[2020-09-23] MEDS: Albuterol Sulfate 2.5 mg/3 ml Neb NEB PRN (04:31)
[2020-09-23] MEDS: Mometasone 200 MCG/Formoterol 5 MCG 120 PUFF INHALER INH SCH (07:17)
[2020-09-23] MEDS ORDERED: predniSONE 20 MG TAB PO SCH (08:00)
[2020-09-23 08:11] VITALS: BP 168/77; TEMP 98.4
[2020-09-23] MEDS: Famotidine 20 MG TAB PO SCH (08:48)
[2020-09-23] MEDS: Metoprolol Tartrate 25 MG TAB PO SCH (08:48)
[2020-09-23] MEDS: Aspirin 81 mg Enteric Coated Tablet PO SCH (08:48)
[2020-09-23] MEDS: Doxycycline 100 MG CAP PO SCH (08:48)
[2020-09-23] MEDS: Pantoprazole 40 MG VIAL IVP SCH (08:49)
[2020-09-23] MEDS: Polyethylene Glycol 3350 17 GM Packet PO SCH (08:49)
--- NOTE | 2020-09-23 17:25 | PDOC.DS.DS ---
Provider - Provider Date of Admission: 09/19/20 19:58 Date of Discharge: 09/23/20 Admitting Provider: Gema Putnam MD Consultations: Pulmonary (Dr. Mekhi Díaz) Primary Care Physician: [facility] Course - Hospital Course Hospital Course: Discharge Diagnoses: 1. Acute hypoxic respiratory failure secondary to COPD exacerbation 2. Tobacco abuse 3. Chronic systolic heart failure Brief HPI: This is a 70 year old male with history of COPD who is still smoking who presented to the ER with chest tightness. THe patient stated that he was tachycardic at home, and tried taking nitroglycerin and aspirin to bring his heart rate down, but was unable to so he called the ambulance. He was unable to get a blood pressure but when EMS arrived it was 220. The patient was brought to the hospital due to EKG showing concern for ST elevation in leads II and III. Hospital Course: Acute hypoxic respiratory failure secondary to COPD exacerbation: the patient was found saturation of 85% on room air. The patient was initially placed on BiPAP and admitted to the [facility]. He was started on doxycycline and IV steroids. Patient was started on duo nebs, albuterol, Dulera. He did significantly improve with this and had significantly less wheezing. Pulmonary was consulted as well. Home oxygen evaluation was done on 09/22 and showed that the patient desaturated on exertion less than 88% and saturations improved with 0.5 to 1 L oxygen. Patient was set up with home oxygen on discharge. Patient states that he was unable to sheepskin pickler his inhalers from the [place] because the paperwork was not filled out correctly and it cost him $600. He was given a voucher for Dulera which he will get for free. He is also prescribed DuoNebs every 4 hours since Spiriva was not covered by his insurance. He was also prescribed albuterol rescue inhaler as needed and a 5 day course of prednisone. Chest pain/Chronic systolic heart failure: the patient had an EKG which showed questionable ST elevation in lead II and III. Blood pressure was 120-130 while i n the hospital. He was admitted to the IMCU on a heparin drip and nitroglycerin drip. His chest pain resolved after receiving breathing treatments. His troponins were negative x3. Cardiology was consulted and patient was started on aspirin. Echo was performed which showed an EF of 40 to 45%. Repeat EKG showed no significant ST elevation. Patient was discharged with Lasix 20 mg daily as needed for edema . '' Tobacco abuse: the patient stated he will quit smoking on discharge. He has tried the patches and medicine in the past without success. Pertinent Studies: Chest X ray 09/19: no significant disease ECHO 09/20: EF 40-45% Resuscitation Status: 09/19/20 21:02 Resuscitation Status Routine Resuscitation Status: FULL: Full Resuscitation - Labs Lab Results: 09/22/20 04:00 09/22/20 04:00 Abnormal Lab Results - Last 48 hrs 09/22/20 04:00: BUN 28 H 09/22/20 04:00: RBC 4.49 L, Hct 41.6 L, MCH 31.1 H, Neutrophils % 92.1 H, Lymphocytes % 5.5 L, Neutrophils # 7.2 H, Lymphocytes # 0.4 L Microbiology - Entire Visit 09/22/20 07:40 Sputum Respiratory Culture - Preliminary - Physical Exam Vitals: Vital Signs (12 hours) Temp Pulse Resp BP Pulse Ox 09/23/20 10:53 83 20 96 09/23/20 08:04 98.4 F 80 18 168/77 H 97 09/23/20 08:00 97 09/23/20 07:20 92 L 09/23/20 07:18 114 H 20 92 L 09/23/20 07:17 114 H 20 92 L 09/23/20 04:31 78 16 93 L Weight Weight 157 lb 6.561 oz Most Recent Monitor Data Heart Rate from ECG 85 NIBP 128/73 NIBP BP-Mean 91 Respiration from ECG 18 SpO2 95 Physical Exam: The patient was seen and examined on the day of discharge. General: patient is alert, awake, oriented times three CV: RRR, no murmurs, rubs, gallops Lungs: mild wheezing Abdomen: +BS, soft, nontender, nondistended Extremities: no edema Problem - Time spent with Patient (mins): 35 Plan - Discharge Medications Prescriptions: Ipratropium/Albuterol Sulfate [DuoNeb] 3 ml NEB [id number] #6 box Mometasone/Formoterol 200/5 [Dulera 200 Mcg/5 Mcg Inhaler] 1 puff INH BID-RT #1 inh Furosemide 20 mg PO DAILY PRN #30 tablet PRN Reason: Edema predniSONE 40 mg PO QAM-WM #10 tab Albuterol Sulfate [Proair Digihaler] 90 mcg IH Q4H PRN #1 aer.pw.bas PRN Reason: wheezing Doxycycline [Vibramycin] 100 mg PO BID #6 cap Home Medications: Medication Instructions Recorded Confirmed Type Aspirin [Aspirin EC] 81 mg PO DAILY 01/08/20 09/19/20 History Atorvastatin Calcium 80 mg PO HS 01/08/20 09/19/20 History Benzonatate 100 mg PO TID PRN 01/08/20 09/19/20 History Isosorbide Mononitrate [Isosorbide 30 mg PO DAILY 01/08/20 09/19/20 History Mononitrate ER] LORazepam [Lorazepam] 0.5 mg PO TID PRN 01/08/20 09/19/20 History Methocarbamol [Robaxin] 500 mg PO TID 01/08/20 09/19/20 History Metoprolol Tartrate 25 mg PO DAILY 01/08/20 09/20/20 History Multivitamin W/ Minerals 1 tab PO DAILY 01/08/20 09/19/20 History [Theragran M] Nitroglycerin [Nitrostat] 0.4 mg SL Q5MIN PRN 01/08/20 09/19/20 History Polyethylene Glycol 3350 [Miralax] 17 gm PO DAILY PRN 01/08/20 09/19/20 History Ipratropium/Albuterol Sulfate 3 ml NEB Q4H #240 neb 07/30/20 09/19/20 Rx [DuoNeb] Albuterol Sulfate [Proair 90 mcg IH Q4H PRN #1 aer.pw.bas 09/23/20 Rx Digihaler] Doxycycline [Vibramycin] 100 mg PO BID #6 cap 09/23/20 Rx Furosemide 20 mg PO DAILY PRN #30 tablet 09/23/20 Rx Ipratropium/Albuterol Sulfate 3 ml NEB [id number] #6 box 09/23/20 Rx [DuoNeb] Mometasone/Formoterol 200/5 1 puff INH BID-RT #1 inh 09/23/20 Rx [Dulera 200 Mcg/5 Mcg Inhaler] predniSONE 40 mg PO QAM-WM #10 tab 09/23/20 Rx Allergies: No Known Allergies Allergy (Verified 09/19/20 23:27) - Discharge Instructions Activity:: Activity as Tolerated Nourishment:: Fluid Restriction Diet (1.5L ), Heart Healthy Diet Equipment/Supplies:: Oxygen - Follow up Plan Referrals: [facility] [Primary Care Provider] - Disposition: HOME Quality - Care Measures CORE MEASURES:: HF
--- NOTE | 2020-09-24 14:25 | PQF ---
CLINICAL DOCUMENTATION CLARIFICATION FORM: Dear Dr. Marcela Henry Date: 09.24.20 Please exercise your independent, professional judgment in responding to the clarification form. Clinical indicators are provided on the bottom of this form for your review. Please check appropriate box(es): [ X ] SIRS due to Non-infectious process COPD Exacerbation with Acute Hypoxic Respiratory Failure [ ] COPD Exacerbation only [ ] COPD with Pneumonia [ ] Other diagnosis [ ] Unable to determine For continuity of documentation, please document condition throughout progress notes and discharge summary. Thank You. To be completed by CDI/Coding staff for physician review: CLINICAL INDICATORS - SIGNS / SYMPTOMS / LABS / RESULTS AND LOCATION IN 12.5 H&P (Ater): * Acute Hypoxic Respiratory Failure * Sepsis secondary to COPD exacerbation * Treat empiric PNA/ COPD exacerbation RISK FACTORS / RESULTS AND LOCATION IN [facility]. H&P (Aterno): PMH: COPD; Bronchitis TREATMENT / RESULTS AND LOCATION IN 12. H&P (Ater): * Admit to IMCU * wean BIPAP and NTG drip * IV steroids * pulmonary consult * scheduled /PRN duonebs; * treat empiric PNA/ COPD exacerbation w/ ceftriaxone and doxycycline CDS Signature: Alyson Deng RN, CCDS Phone #: [phone] [email or web address] This is a permanent part of the Medical Record [facility]
== END 2020-09-23 14:50 | disposition home or self-care (01) | DRG 189 ==
LOC: ERS 18:20 → IMCU/EMU 19:58 → ONC 09-21 02:02
PROVIDERS: ADMIT Internal Medicine Cardiovascular Disease; ATTEND Internal Medicine Cardiovascular Disease
DX: J96.01 Acute respiratory failure with hypoxia (principal); J44.1 Chronic obstructive pulmonary disease with (acute) exacerbation; I16.1 Hypertensive emergency; I50.22 Chronic systolic (congestive) heart failure; R65.10 Systemic inflammatory response syndrome (SIRS) of non-infectious origin without acute organ dysfunction; I25.10 Atherosclerotic heart disease of native coronary artery without angina pectoris; K21.9 Gastro-esophageal reflux disease without esophagitis; F41.9 Anxiety disorder, unspecified; D72.829 Elevated white blood cell count, unspecified; E78.5 Hyperlipidemia, unspecified; I11.0 Hypertensive heart disease with heart failure; Z95.1 Presence of aortocoronary bypass graft; I25.2 Old myocardial infarction; Z79.82 Long term (current) use of aspirin; Z79.899 Other long term (current) drug therapy; Z79.51 Long term (current) use of inhaled steroids; R07.9 Chest pain, unspecified; Z20.828 Contact with and (suspected) exposure to other viral communicable diseases
CPT/HCPCS: 36415; 71045; 80048; 80053; 81003; 81015; 82550; 82570; 83735; 83880; 84300; 84484; 85025; 85610; 85730; 86850; 86900; 86901; 87070; 87205; 87635; 90471; 90662; 93005; 93010; 93306; 94640; 94660; 96365; 96366; 96367; 96375; 99292; C9113; G0008; J0696; J1644; J1956; J2060; J2270; J2920; J2930; J3475; J3490; J7512; J7611; J7620; U0003

== ENCOUNTER 2021-08-10 04:25 | Inpatient (IN) | payer MEDICARE, OTHER ==
[2021-08-10] MEDS ORDERED: Amiodarone 150 MG/3 ML VIAL ONE (04:48)
[2021-08-10 05:10] LABS: #Eosinphils 0.6 thou/uL (0.0-0.7); #Lymphocytes 1.7 thou/uL (1.20-3.40); #Monocytes 0.6 thou/uL (0.11-0.59); #Neutrophils 4.9 thou/uL (1.40-6.50); %Basophils 0.1 % (0.0-1.0); %Eosinophils 8.1 % (0.0-10.0); %Lymphocytes 21.6 % (21.0-51.0); %Monocytes 7.5 % (0.0-10.0); %Neutrophils 62.7 % (42.0-75.0); Hemoglobin 15.4 g/dL (14.0-18.0); Mean Corpuscular HGB CONC 33.8 g/dL (32.0-36.0); Mean Corpuscular Hemoglobin 30.7 pg (27.0-31.0); Mean Corpuscular Volume 90.8 fL (78.0-98.0); Mean Platelet Volume 8.5 fL (7.4-10.4); Platelet Count 155 thou/uL (130-400); RBC Distribution Width 12.8 % (11.5-14.5); Red Blood Cell (RBC) Count 5.02 mill/uL (4.70-6.10); White Blood Cell (WBC) Count 7.9 thou/uL (4.8-10.8)
[2021-08-10 05:26] LABS: ALT (SGPT) 16 U/L (8-55); AST (SGOT) 13 U/L (5-34); Albumin 4.2 g/dL (3.4-4.8); Alkaline Phosphatase 74 U/L (40-110); Anion Gap 18 mmol/L (10-20); BUN (Urea Nitrogen) 14 mg/dL (8.4-25.7); Bilirubin, Total 0.5 mg/dL (0.2-1.2); CK (CPK) 97 U/L (30-200); Calc. Creatinine Clearance 0 mL/min (70-130); Calcium 8.9 mg/dL (7.8-10.44); Carbon Dioxide 23 mmol/L (23-31); Chloride 102 mmol/L (98-107); Globulin 2.6 g/dL (2.4-3.5); Glucose 104 mg/dL (83-110); Lipase 30 U/L (8-78); Potassium 3.8 mmol/L (3.5-5.1); Protein, Total 6.8 g/dL (5.8-8.1); Sodium 139 mmol/L (136-145)
[2021-08-10 07:16] LABS: SARS-CoV-2 NAA Rapid Test Not Detected (NotDetected)
[2021-08-10] MEDS ORDERED: Metoprolol Tartrate 50 MG TAB PO SCH (09:00)
[2021-08-10] MEDS ORDERED: Ondansetron PF 4 MG/2 ML Vial IVP PRN (09:19)
[2021-08-10] MEDS ORDERED: Ondansetron ODT 4 MG TAB PO PRN (09:19)
[2021-08-10] MEDS: Enoxaparin Sodium 40 MG/0.4 ML SYRINGE SC SCH (09:22)
[2021-08-10] MEDS: Aspirin Chewable 81 MG TAB PO SCH (09:22)
[2021-08-10] MEDS ORDERED: Amiodarone 450 MG, Admixture Fee 1 EACH in Dextrose 5% in Water 250 ML IVPB SCH (09:30)
[2021-08-10] MEDS ORDERED: Iopamidol-370 76% 500 ML 1 ML ONE (09:33)
[2021-08-10] MEDS ORDERED: cefTRIAXone\\ROCEPHIN 1 GM in Sodium Chloride 0.9% 100 ML IVPB SCH (10:00)
[2021-08-10 10:01] LABS: Troponin I Less than 0.010 ng/mL (< 0.028)
[2021-08-10] MEDS: Ipratropium Bromide 2.5 ml Neb NEB PRN ×6 (10:38→21:29)
[2021-08-10 10:49] LABS: Legionella Urinary Ag Negative (Negative); Strep pneumo Urine Ag NEGATIVE (NEGATIVE)
[2021-08-10] MEDS ORDERED: Lorazepam 0.5 MG TAB PO PRN (11:14)
[2021-08-10] MEDS ORDERED: Nitroglycerin 0.4 MG TAB (25 Tab Bottle) SL PRN (11:14)
[2021-08-10 11:37] LABS: Troponin I 0.016 ng/mL (< 0.028)
[2021-08-10 11:49] LABS: Magnesium 1.7 mg/dL (1.6-2.6)
[2021-08-10] MEDS ORDERED: FLU VACC QS2021-22(65YR UP)/PF 240 MCG/0.7 ML SYRINGE IM ONE (14:00)
[2021-08-10] MEDS: Mometasone 200 MCG/Formoterol 5 MCG 120 PUFF INHALER INH SCH (18:19)
[2021-08-10] MEDS: Atorvastatin Calcium 40 MG TAB PO SCH (20:22)
[2021-08-10] MEDS: Methocarbamol 500 MG TAB PO SCH (20:23)
[2021-08-10] MEDS: Benzonatate 100 MG CAP PO SCH (20:23)
[2021-08-11] MEDS: Ipratropium Bromide 2.5 ml Neb NEB PRN ×3 (01:40→07:58)
[2021-08-11 05:55] LABS: Cardiac Risk 3.1 (Less than 4.5)
[2021-08-11 05:59] LABS: Hemoglobin A1c 5.4 % (4.0-6.0)
[2021-08-11] MEDS ORDERED: Azithromycin 500 MG in Sodium Chloride 0.9% 250 ML 250 ML IVPB SCH (07:00)
[2021-08-11] MEDS: Mometasone 200 MCG/Formoterol 5 MCG 120 PUFF INHALER INH SCH ×2 (07:58→18:49)
[2021-08-11] MEDS ORDERED: predniSONE 20 MG TAB PO SCH (08:00)
[2021-08-11] MEDS: Aspirin 81 mg Enteric Coated Tablet PO SCH (08:46)
[2021-08-11] MEDS: Multivitamin W/ Minerals 1 TAB PO SCH (08:46)
[2021-08-11] MEDS: Saccharomyces boulardii 250 MG CAP PO SCH (08:46)
[2021-08-11] MEDS: Benzonatate 100 MG CAP PO SCH ×2 (08:47→21:38)
[2021-08-11] MEDS: Enoxaparin Sodium 40 MG/0.4 ML SYRINGE SC SCH (08:47)
[2021-08-11] MEDS: Carvedilol 6.25 MG TAB PO SCH ×2 (08:47→18:00)
[2021-08-11] MEDS: Polyethylene Glycol 3350 17 GM Packet PO SCH (08:47)
[2021-08-11] MEDS ORDERED: methylPREDNISolone Sod Succ/PF 125 MG in Sodium Chloride 0.9% 250 ML 250 ML IVPB SCH (09:00)
[2021-08-11] MEDS ORDERED: Lorazepam 0.5 MG TAB PO SCH (09:00)
[2021-08-11] MEDS: Methocarbamol 500 MG TAB PO SCH ×2 (09:08→21:38)
[2021-08-11] MEDS: methylPREDNISolone Sod Succ/PF 125 MG in Sodium Chloride 0.9% 250 ML 250 ML IVPB SCH ×3 (09:08→21:42)
[2021-08-11] MEDS ORDERED: Albuterol Sulfate 2.5 mg/3 ml Neb IPPB SCH (10:30)
[2021-08-11] MEDS ORDERED: Lorazepam 2 MG/ML VIAL ONE (10:37)
[2021-08-11] MEDS ORDERED: Magnesium Sulfate 4 GM in Sodium Chloride 0.9% 250 ML 250 ML IVPB SCH (11:00)
[2021-08-11] MEDS: Sodium Chloride 0.45% 1,000 ML IV SCH (12:13)
[2021-08-11] MEDS: Atorvastatin Calcium 40 MG TAB PO SCH (21:38)
[2021-08-12] MEDS: methylPREDNISolone Sod Succ/PF 125 MG in Sodium Chloride 0.9% 250 ML 250 ML IVPB SCH (02:15)
[2021-08-12 04:04] LABS: #Lymphocytes 0.6 thou/uL (1.20-3.40); #Monocytes 0.1 thou/uL (0.11-0.59); #Neutrophils 4.3 thou/uL (1.40-6.50); %Basophils 0.2 % (0.0-1.0); %Eosinophils 0.3 % (0.0-10.0); %Lymphocytes 11.4 % (21.0-51.0); %Monocytes 1.1 % (0.0-10.0); %Neutrophils 87.1 % (42.0-75.0); Hemoglobin 14.2 g/dL (14.0-18.0); Mean Corpuscular HGB CONC 32.7 g/dL (32.0-36.0); Mean Corpuscular Hemoglobin 30.5 pg (27.0-31.0); Mean Corpuscular Volume 93.1 fL (78.0-98.0); Mean Platelet Volume 8.8 fL (7.4-10.4); Platelet Count 139 thou/uL (130-400); RBC Distribution Width 12.6 % (11.5-14.5); Red Blood Cell (RBC) Count 4.67 mill/uL (4.70-6.10)
[2021-08-12 04:19] LABS: Albumin 3.6 g/dL (3.4-4.8); Anion Gap 13 mmol/L (10-20); BUN (Urea Nitrogen) 20 mg/dL (8.4-25.7); Bilirubin, Total 0.5 mg/dL (0.2-1.2); Calc. Creatinine Clearance 61 mL/min (70-130); Calcium 8.8 mg/dL (7.8-10.44); Carbon Dioxide 27 mmol/L (23-31); Chloride 101 mmol/L (98-107); Glucose 140 mg/dL (83-110); Potassium 5.2 mmol/L (3.5-5.1); Protein, Total 5.9 g/dL (5.8-8.1); Sodium 136 mmol/L (136-145)
[2021-08-12 04:20] LABS: ALT (SGPT) 13 U/L (8-55); AST (SGOT) 10 U/L (5-34); Alkaline Phosphatase 62 U/L (40-110); Globulin 2.3 g/dL (2.4-3.5)
[2021-08-12] MEDS: Sodium Chloride 0.45% 1,000 ML IV SCH ×2 (05:08→20:50)
[2021-08-12] MEDS: Mometasone 200 MCG/Formoterol 5 MCG 120 PUFF INHALER INH SCH ×2 (07:34→18:32)
[2021-08-12] MEDS: Methocarbamol 500 MG TAB PO SCH ×2 (09:23→20:49)
[2021-08-12] MEDS: Enoxaparin Sodium 40 MG/0.4 ML SYRINGE SC SCH (09:23)
[2021-08-12] MEDS: Aspirin 81 mg Enteric Coated Tablet PO SCH (09:23)
[2021-08-12] MEDS: Carvedilol 6.25 MG TAB PO SCH ×2 (09:23→17:26)
[2021-08-12] MEDS: Polyethylene Glycol 3350 17 GM Packet PO SCH (09:23)
[2021-08-12] MEDS: Saccharomyces boulardii 250 MG CAP PO SCH (09:24)
[2021-08-12] MEDS: Multivitamin W/ Minerals 1 TAB PO SCH (09:24)
[2021-08-12] MEDS: Benzonatate 100 MG CAP PO SCH ×2 (09:24→20:49)
[2021-08-12] MEDS: Lorazepam 0.5 MG TAB PO PRN ×2 (09:29→18:29)
[2021-08-12] MEDS: methylPREDNISolone Sod Succ 40 MG VIAL IVP SCH ×3 (12:28→23:44)
[2021-08-12] MEDS: Lorazepam 2 MG/ML VIAL SLOW IVP PRN ×2 (12:28→20:55)
[2021-08-12] MEDS: Atorvastatin Calcium 40 MG TAB PO SCH (20:49)
[2021-08-13 04:10] LABS: #Lymphocytes 0.5 thou/uL (1.20-3.40); #Monocytes 0.2 thou/uL (0.11-0.59); #Neutrophils 6.3 thou/uL (1.40-6.50); %Basophils 0.2 % (0.0-1.0); %Eosinophils 0.1 % (0.0-10.0); %Lymphocytes 7.1 % (21.0-51.0); %Monocytes 2.3 % (0.0-10.0); %Neutrophils 90.4 % (42.0-75.0); Hemoglobin 14.1 g/dL (14.0-18.0); Mean Corpuscular HGB CONC 33.2 g/dL (32.0-36.0); Mean Corpuscular Volume 93.5 fL (78.0-98.0); Mean Platelet Volume 8.6 fL (7.4-10.4); Platelet Count 146 thou/uL (130-400); RBC Distribution Width 12.7 % (11.5-14.5); Red Blood Cell (RBC) Count 4.53 mill/uL (4.70-6.10)
[2021-08-13 04:44] LABS: ALT (SGPT) 13 U/L (8-55); AST (SGOT) 10 U/L (5-34); Albumin 3.6 g/dL (3.4-4.8); Alkaline Phosphatase 54 U/L (40-110); Anion Gap 12 mmol/L (10-20); BUN (Urea Nitrogen) 25 mg/dL (8.4-25.7); Bilirubin, Total 0.3 mg/dL (0.2-1.2); Calc. Creatinine Clearance 48 mL/min (70-130); Calcium 8.7 mg/dL (7.8-10.44); Carbon Dioxide 28 mmol/L (23-31); Chloride 101 mmol/L (98-107); Globulin 2.1 g/dL (2.4-3.5); Glucose 147 mg/dL (83-110); Potassium 5.1 mmol/L (3.5-5.1); Protein, Total 5.7 g/dL (5.8-8.1); Sodium 136 mmol/L (136-145)
[2021-08-13] MEDS: methylPREDNISolone Sod Succ 40 MG VIAL IVP SCH ×3 (05:42→17:59)
[2021-08-13] MEDS: Mometasone 200 MCG/Formoterol 5 MCG 120 PUFF INHALER INH SCH ×2 (06:25→18:36)
[2021-08-13] MEDS: Aspirin 81 mg Enteric Coated Tablet PO SCH (08:39)
[2021-08-13] MEDS: Lorazepam 0.5 MG TAB PO PRN (08:39)
[2021-08-13] MEDS: Saccharomyces boulardii 250 MG CAP PO SCH (08:39)
[2021-08-13] MEDS: Methocarbamol 500 MG TAB PO SCH ×2 (08:39→20:39)
[2021-08-13] MEDS: Multivitamin W/ Minerals 1 TAB PO SCH (08:39)
[2021-08-13] MEDS: Benzonatate 100 MG CAP PO SCH ×2 (08:39→20:39)
[2021-08-13] MEDS: Enoxaparin Sodium 40 MG/0.4 ML SYRINGE SC SCH (08:39)
[2021-08-13] MEDS: Polyethylene Glycol 3350 17 GM Packet PO SCH (08:39)
[2021-08-13] MEDS ORDERED: Fentanyl 100 MCG/2 ML VIAL SLOW IVP PRN (09:09)
[2021-08-13] MEDS ORDERED: Azithromycin 500 MG in Sodium Chloride 0.9% 250 ML 250 ML IVPB SCH (15:30)
[2021-08-13] MEDS: Sodium Chloride 0.45% 1,000 ML IV SCH (17:55)
[2021-08-13] MEDS: Atorvastatin Calcium 40 MG TAB PO SCH (20:39)
[2021-08-14] MEDS: methylPREDNISolone Sod Succ 40 MG VIAL IVP SCH ×5 (00:20→23:58)
[2021-08-14] MEDS: Lorazepam 0.5 MG TAB PO PRN ×3 (00:21→20:49)
[2021-08-14 04:10] LABS: #Basophils 0.2 thou/uL (0.0-0.2); #Lymphocytes 0.3 thou/uL (1.20-3.40); #Monocytes 0.4 thou/uL (0.11-0.59); #Neutrophils 9.3 thou/uL (1.40-6.50); %Basophils 1.6 % (0.0-1.0); %Eosinophils 0.2 % (0.0-10.0); %Lymphocytes 2.6 % (21.0-51.0); %Monocytes 3.5 % (0.0-10.0); %Neutrophils 92.1 % (42.0-75.0); Hemoglobin 13.8 g/dL (14.0-18.0); Mean Corpuscular HGB CONC 33.7 g/dL (32.0-36.0); Mean Corpuscular Hemoglobin 31.3 pg (27.0-31.0); Mean Platelet Volume 8.6 fL (7.4-10.4); Platelet Count 153 thou/uL (130-400); RBC Distribution Width 12.9 % (11.5-14.5); Red Blood Cell (RBC) Count 4.42 mill/uL (4.70-6.10); White Blood Cell (WBC) Count 10.1 thou/uL (4.8-10.8)
[2021-08-14 04:33] LABS: ALT (SGPT) 17 U/L (8-55); AST (SGOT) 13 U/L (5-34); Albumin 3.4 g/dL (3.4-4.8); Alkaline Phosphatase 53 U/L (40-110); Anion Gap 12 mmol/L (10-20); BUN (Urea Nitrogen) 22 mg/dL (8.4-25.7); Bilirubin, Total 0.2 mg/dL (0.2-1.2); Calc. Creatinine Clearance 54 mL/min (70-130); Calcium 8.5 mg/dL (7.8-10.44); Carbon Dioxide 27 mmol/L (23-31); Chloride 102 mmol/L (98-107); Globulin 2.2 g/dL (2.4-3.5); Glucose 172 mg/dL (83-110); Potassium 4.2 mmol/L (3.5-5.1); Protein, Total 5.6 g/dL (5.8-8.1); Sodium 137 mmol/L (136-145)
[2021-08-14] MEDS: Sodium Chloride 0.45% 1,000 ML IV SCH ×2 (05:51→20:50)
[2021-08-14] MEDS: Mometasone 200 MCG/Formoterol 5 MCG 120 PUFF INHALER INH SCH ×2 (07:27→19:07)
[2021-08-14] MEDS: Aspirin 81 mg Enteric Coated Tablet PO SCH (09:37)
[2021-08-14] MEDS: Multivitamin W/ Minerals 1 TAB PO SCH (09:37)
[2021-08-14] MEDS: Saccharomyces boulardii 250 MG CAP PO SCH (09:37)
[2021-08-14] MEDS: Methocarbamol 500 MG TAB PO SCH ×2 (09:37→20:40)
[2021-08-14] MEDS: Benzonatate 100 MG CAP PO SCH ×2 (09:37→20:38)
[2021-08-14] MEDS: Enoxaparin Sodium 40 MG/0.4 ML SYRINGE SC SCH (09:37)
[2021-08-14] MEDS: Polyethylene Glycol 3350 17 GM Packet PO SCH (09:38)
[2021-08-14] MEDS: Atorvastatin Calcium 40 MG TAB PO SCH (20:38)
[2021-08-14] MEDS: Nicotine 21 MG PATCH TOP SCH (20:39)
[2021-08-14] MEDS: hydrALAZINE 20 MG/ML VIAL SLOW IVP PRN (23:57)
[2021-08-15 04:15] LABS: #Lymphocytes 0.5 thou/uL (1.20-3.40); #Monocytes 0.4 thou/uL (0.11-0.59); #Neutrophils 11.2 thou/uL (1.40-6.50); %Eosinophils 0.2 % (0.0-10.0); %Lymphocytes 4.2 % (21.0-51.0); %Monocytes 3.6 % (0.0-10.0); Hemoglobin 14.9 g/dL (14.0-18.0); Mean Corpuscular HGB CONC 33.2 g/dL (32.0-36.0); Mean Corpuscular Hemoglobin 30.8 pg (27.0-31.0); Mean Corpuscular Volume 92.8 fL (78.0-98.0); Platelet Count 169 thou/uL (130-400); RBC Distribution Width 13.2 % (11.5-14.5); Red Blood Cell (RBC) Count 4.84 mill/uL (4.70-6.10); White Blood Cell (WBC) Count 12.2 thou/uL (4.8-10.8)
[2021-08-15 04:37] LABS: Anion Gap 14 mmol/L (10-20); BUN (Urea Nitrogen) 27 mg/dL (8.4-25.7); Calc. Creatinine Clearance 55 mL/min (70-130); Calcium 8.2 mg/dL (7.8-10.44); Carbon Dioxide 26 mmol/L (23-31); Chloride 98 mmol/L (98-107); Glucose 296 mg/dL (83-110); Sodium 134 mmol/L (136-145)
[2021-08-15] MEDS: Lorazepam 2 MG/ML VIAL SLOW IVP PRN ×2 (05:12→21:14)
[2021-08-15] MEDS: methylPREDNISolone Sod Succ 40 MG VIAL IVP SCH ×3 (05:13→17:45)
[2021-08-15] MEDS: Mometasone 200 MCG/Formoterol 5 MCG 120 PUFF INHALER INH SCH ×2 (07:45→18:58)
[2021-08-15] MEDS: Saccharomyces boulardii 250 MG CAP PO SCH (09:08)
[2021-08-15] MEDS: Aspirin 81 mg Enteric Coated Tablet PO SCH (09:08)
[2021-08-15] MEDS: Enoxaparin Sodium 40 MG/0.4 ML SYRINGE SC SCH (09:08)
[2021-08-15] MEDS: Benzonatate 100 MG CAP PO SCH ×2 (09:08→21:14)
[2021-08-15] MEDS: Multivitamin W/ Minerals 1 TAB PO SCH (09:08)
[2021-08-15] MEDS: Polyethylene Glycol 3350 17 GM Packet PO SCH (09:09)
[2021-08-15] MEDS: Methocarbamol 500 MG TAB PO SCH ×2 (09:12→21:14)
[2021-08-15] MEDS: Sodium Chloride 0.45% 1,000 ML IV SCH (11:22)
[2021-08-15] MEDS: Nicotine 21 MG PATCH TOP SCH (20:30)
[2021-08-15] MEDS: Atorvastatin Calcium 40 MG TAB PO SCH (21:14)
[2021-08-15] MEDS: hydrALAZINE 20 MG/ML VIAL SLOW IVP PRN (21:14)
[2021-08-16] MEDS: methylPREDNISolone Sod Succ 40 MG VIAL IVP SCH ×4 (00:51→18:26)
[2021-08-16] MEDS: Sodium Chloride 0.45% 1,000 ML IV SCH (00:51)
[2021-08-16] MEDS: Mometasone 200 MCG/Formoterol 5 MCG 120 PUFF INHALER INH SCH ×2 (07:16→18:39)
[2021-08-16] MEDS: Saccharomyces boulardii 250 MG CAP PO SCH (09:43)
[2021-08-16] MEDS: Methocarbamol 500 MG TAB PO SCH ×2 (09:43→20:24)
[2021-08-16] MEDS: Benzonatate 100 MG CAP PO SCH ×2 (09:43→20:24)
[2021-08-16] MEDS: Multivitamin W/ Minerals 1 TAB PO SCH (09:44)
[2021-08-16] MEDS: Aspirin 81 mg Enteric Coated Tablet PO SCH (09:44)
[2021-08-16] MEDS: Diltiazem HCl CD 300 mg Capsule PO SCH (09:44)
[2021-08-16] MEDS: Polyethylene Glycol 3350 17 GM Packet PO SCH (09:45)
[2021-08-16] MEDS: Enoxaparin Sodium 40 MG/0.4 ML SYRINGE SC SCH (09:45)
[2021-08-16] MEDS: Lorazepam 0.5 MG TAB PO PRN (11:11)
[2021-08-16] MEDS: Atorvastatin Calcium 40 MG TAB PO SCH (20:24)
[2021-08-16] MEDS: hydrALAZINE 20 MG/ML VIAL SLOW IVP PRN (20:24)
[2021-08-16] MEDS: Lorazepam 2 MG/ML VIAL SLOW IVP PRN (22:24)
[2021-08-17] MEDS: methylPREDNISolone Sod Succ 40 MG VIAL IVP SCH ×5 (00:57→23:44)
[2021-08-17] MEDS ORDERED: Simethicone Chewable 80 MG TAB ONE (01:37)
[2021-08-17] MEDS: hydrALAZINE 20 MG/ML VIAL SLOW IVP PRN ×2 (02:43→21:04)
[2021-08-17] MEDS: Mometasone 200 MCG/Formoterol 5 MCG 120 PUFF INHALER INH SCH ×2 (06:56→18:53)
[2021-08-17] MEDS: Polyethylene Glycol 3350 17 GM Packet PO SCH (07:55)
[2021-08-17] MEDS: Diltiazem HCl CD 300 mg Capsule PO SCH (07:55)
[2021-08-17] MEDS: Enoxaparin Sodium 40 MG/0.4 ML SYRINGE SC SCH (07:55)
[2021-08-17] MEDS: Methocarbamol 500 MG TAB PO SCH ×2 (07:56→20:23)
[2021-08-17] MEDS: Multivitamin W/ Minerals 1 TAB PO SCH (07:56)
[2021-08-17] MEDS: Aspirin 81 mg Enteric Coated Tablet PO SCH (07:56)
[2021-08-17] MEDS: Benzonatate 100 MG CAP PO SCH ×2 (07:56→20:24)
[2021-08-17] MEDS: Saccharomyces boulardii 250 MG CAP PO SCH (07:56)
[2021-08-17] MEDS: cloNIDine 0.1 MG TAB PO SCH (20:23)
[2021-08-17] MEDS: Atorvastatin Calcium 40 MG TAB PO SCH (20:23)
[2021-08-17] MEDS: Lorazepam 2 MG/ML VIAL SLOW IVP PRN (20:24)
[2021-08-17] MEDS: Simethicone Chewable 80 MG TAB PO PRN (21:04)
[2021-08-18] MEDS: methylPREDNISolone Sod Succ 40 MG VIAL IVP SCH ×3 (05:24→16:53)
[2021-08-18] MEDS: Mometasone 200 MCG/Formoterol 5 MCG 120 PUFF INHALER INH SCH ×2 (07:34→18:43)
[2021-08-18] MEDS: Benzonatate 100 MG CAP PO SCH ×2 (07:46→20:03)
[2021-08-18] MEDS: cloNIDine 0.1 MG TAB PO SCH ×2 (07:46→20:03)
[2021-08-18] MEDS: Enoxaparin Sodium 40 MG/0.4 ML SYRINGE SC SCH (07:46)
[2021-08-18] MEDS: Diltiazem HCl CD 300 mg Capsule PO SCH (07:46)
[2021-08-18] MEDS: Polyethylene Glycol 3350 17 GM Packet PO SCH (07:46)
[2021-08-18] MEDS: Aspirin 81 mg Enteric Coated Tablet PO SCH (07:46)
[2021-08-18] MEDS: Saccharomyces boulardii 250 MG CAP PO SCH (07:47)
[2021-08-18] MEDS: Methocarbamol 500 MG TAB PO SCH ×2 (07:47→20:03)
[2021-08-18] MEDS: Multivitamin W/ Minerals 1 TAB PO SCH (07:47)
[2021-08-18 12:38] LABS: SARS-CoV-2 PCR by NAA Not Detected (NotDetected)
[2021-08-18] MEDS: Lorazepam 0.5 MG TAB PO PRN (16:53)
[2021-08-18] MEDS: Atorvastatin Calcium 40 MG TAB PO SCH (20:03)
[2021-08-19] MEDS: Lorazepam 0.5 MG TAB PO PRN ×2 (05:43→20:02)
[2021-08-19] MEDS: Mometasone 200 MCG/Formoterol 5 MCG 120 PUFF INHALER INH SCH ×2 (07:11→18:18)
[2021-08-19] MEDS: Aspirin 81 mg Enteric Coated Tablet PO SCH (07:37)
[2021-08-19] MEDS: Benzonatate 100 MG CAP PO SCH ×2 (07:37→21:22)
[2021-08-19] MEDS: Saccharomyces boulardii 250 MG CAP PO SCH (07:37)
[2021-08-19] MEDS: Polyethylene Glycol 3350 17 GM Packet PO SCH (07:37)
[2021-08-19] MEDS: cloNIDine 0.1 MG TAB PO SCH ×2 (07:37→21:23)
[2021-08-19] MEDS: Multivitamin W/ Minerals 1 TAB PO SCH (07:38)
[2021-08-19] MEDS: Diltiazem HCl CD 300 mg Capsule PO SCH (07:38)
[2021-08-19] MEDS: predniSONE 20 MG TAB PO SCH (07:38)
[2021-08-19] MEDS: Enoxaparin Sodium 40 MG/0.4 ML SYRINGE SC SCH (07:38)
[2021-08-19] MEDS: Methocarbamol 500 MG TAB PO SCH ×2 (07:38→21:23)
[2021-08-19 08:14] LABS: #Lymphocytes 0.7 thou/uL (1.20-3.40); #Monocytes 1.2 thou/uL (0.11-0.59); #Neutrophils 15.1 thou/uL (1.40-6.50); %Eosinophils 0.2 % (0.0-10.0); %Lymphocytes 4.2 % (21.0-51.0); %Monocytes 6.8 % (0.0-10.0); %Neutrophils 88.7 % (42.0-75.0); Hemoglobin 14.2 g/dL (14.0-18.0); Mean Corpuscular HGB CONC 34.4 g/dL (32.0-36.0); Mean Corpuscular Hemoglobin 31.3 pg (27.0-31.0); Mean Corpuscular Volume 90.9 fL (78.0-98.0); Mean Platelet Volume 8.9 fL (7.4-10.4); Platelet Count 133 thou/uL (130-400); RBC Distribution Width 13.1 % (11.5-14.5); Red Blood Cell (RBC) Count 4.55 mill/uL (4.70-6.10)
[2021-08-19 08:32] LABS: ALT (SGPT) 55 U/L (8-55); AST (SGOT) 23 U/L (5-34); Alkaline Phosphatase 47 U/L (40-110); Anion Gap 11 mmol/L (10-20); BUN (Urea Nitrogen) 30 mg/dL (8.4-25.7); Bilirubin, Total 0.6 mg/dL (0.2-1.2); Calc. Creatinine Clearance 73 mL/min (70-130); Calcium 7.9 mg/dL (7.8-10.44); Carbon Dioxide 29 mmol/L (23-31); Chloride 95 mmol/L (98-107); Globulin 1.9 g/dL (2.4-3.5); Glucose 177 mg/dL (83-110); Potassium 4.4 mmol/L (3.5-5.1); Protein, Total 4.9 g/dL (5.8-8.1); Sodium 131 mmol/L (136-145)
[2021-08-19 13:11] VITALS: BMI 25.0
[2021-08-19] MEDS: Atorvastatin Calcium 40 MG TAB PO SCH (21:23)
[2021-08-20] MEDS: Lorazepam 0.5 MG TAB PO PRN ×2 (02:09→21:13)
[2021-08-20] MEDS ORDERED: Bisacodyl 10 MG SUPP PR SCH (04:04)
[2021-08-20] MEDS: Simethicone Chewable 80 MG TAB PO PRN (04:40)
[2021-08-20] MEDS: hydrALAZINE 20 MG/ML VIAL SLOW IVP PRN (04:51)
[2021-08-20] MEDS: Mometasone 200 MCG/Formoterol 5 MCG 120 PUFF INHALER INH SCH ×2 (06:40→18:23)
[2021-08-20] MEDS: Multivitamin W/ Minerals 1 TAB PO SCH (08:20)
[2021-08-20] MEDS: Diltiazem HCl CD 300 mg Capsule PO SCH (08:20)
[2021-08-20] MEDS: Aspirin 81 mg Enteric Coated Tablet PO SCH (08:20)
[2021-08-20] MEDS: cloNIDine 0.1 MG TAB PO SCH ×2 (08:20→21:13)
[2021-08-20] MEDS: Benzonatate 100 MG CAP PO SCH ×2 (08:21→21:13)
[2021-08-20] MEDS: Enoxaparin Sodium 40 MG/0.4 ML SYRINGE SC SCH (08:21)
[2021-08-20] MEDS: Polyethylene Glycol 3350 17 GM Packet PO SCH (08:21)
[2021-08-20] MEDS: predniSONE 20 MG TAB PO SCH (08:21)
[2021-08-20] MEDS: Saccharomyces boulardii 250 MG CAP PO SCH (08:21)
[2021-08-20] MEDS: Methocarbamol 500 MG TAB PO SCH ×2 (08:21→21:13)
[2021-08-20] MEDS ORDERED: Bisacodyl 10 MG SUPP PR PRN (09:33)
[2021-08-20] MEDS ORDERED: GoLYTELY 4,000 ml Bottle PO SCH (09:45)
[2021-08-20] MEDS: Fleet Enema 133 ML BOT PR SCH ×2 (10:36→10:45)
[2021-08-20] MEDS: Furosemide 40 MG/4 ML VIAL SLOW IVP SCH (15:13)
[2021-08-20] MEDS: Senokot S 8.6-50 MG TAB PO SCH (21:13)
[2021-08-20] MEDS: Atorvastatin Calcium 40 MG TAB PO SCH (21:13)
[2021-08-21] MEDS: Furosemide 40 MG/4 ML VIAL SLOW IVP SCH ×2 (06:46→14:56)
[2021-08-21 07:01] LABS: Anion Gap 11 mmol/L (10-20); BUN (Urea Nitrogen) 24 mg/dL (8.4-25.7); Calc. Creatinine Clearance 73 mL/min (70-130); Calcium 7.6 mg/dL (7.8-10.44); Carbon Dioxide 30 mmol/L (23-31); Chloride 94 mmol/L (98-107); Glucose 104 mg/dL (83-110); Potassium 3.7 mmol/L (3.5-5.1); Sodium 131 mmol/L (136-145)
[2021-08-21] MEDS: Mometasone 200 MCG/Formoterol 5 MCG 120 PUFF INHALER INH SCH ×2 (07:04→18:36)
[2021-08-21] MEDS: Saccharomyces boulardii 250 MG CAP PO SCH (09:57)
[2021-08-21] MEDS: Senokot S 8.6-50 MG TAB PO SCH ×2 (09:57→20:30)
[2021-08-21] MEDS: Multivitamin W/ Minerals 1 TAB PO SCH (09:57)
[2021-08-21] MEDS: cloNIDine 0.1 MG TAB PO SCH ×2 (09:57→20:29)
[2021-08-21] MEDS: Benzonatate 100 MG CAP PO SCH ×2 (09:58→20:29)
[2021-08-21] MEDS: Diltiazem HCl CD 300 mg Capsule PO SCH (09:58)
[2021-08-21] MEDS: Aspirin 81 mg Enteric Coated Tablet PO SCH (09:58)
[2021-08-21] MEDS: Methocarbamol 500 MG TAB PO SCH ×2 (09:58→20:29)
[2021-08-21] MEDS: predniSONE 20 MG TAB PO SCH (09:58)
[2021-08-21] MEDS ORDERED: Lorazepam 0.5 MG TAB PO SCH (10:00)
[2021-08-21] MEDS: Enoxaparin Sodium 40 MG/0.4 ML SYRINGE SC SCH (10:08)
[2021-08-21] MEDS: Polyethylene Glycol 3350 17 GM Packet PO SCH (10:08)
[2021-08-21] MEDS: Lorazepam 0.5 MG TAB PO PRN (20:24)
[2021-08-21] MEDS: Atorvastatin Calcium 40 MG TAB PO SCH (20:29)
[2021-08-22] MEDS: Lorazepam 0.5 MG TAB PO PRN ×3 (01:58→18:05)
[2021-08-22] MEDS: Furosemide 40 MG/4 ML VIAL SLOW IVP SCH (06:04)
[2021-08-22 06:58] LABS: Anion Gap 10 mmol/L (10-20); BUN (Urea Nitrogen) 22 mg/dL (8.4-25.7); Calc. Creatinine Clearance 71 mL/min (70-130); Calcium 7.4 mg/dL (7.8-10.44); Carbon Dioxide 32 mmol/L (23-31); Chloride 94 mmol/L (98-107); Glucose 150 mg/dL (83-110); Potassium 3.5 mmol/L (3.5-5.1); Sodium 132 mmol/L (136-145)
[2021-08-22] MEDS: Mometasone 200 MCG/Formoterol 5 MCG 120 PUFF INHALER INH SCH (07:37)
[2021-08-22 08:00] VITALS: TEMP 97.8
[2021-08-22] MEDS: Saccharomyces boulardii 250 MG CAP PO SCH (08:15)
[2021-08-22] MEDS: Multivitamin W/ Minerals 1 TAB PO SCH (08:15)
[2021-08-22] MEDS: Methocarbamol 500 MG TAB PO SCH (08:16)
[2021-08-22] MEDS: Aspirin 81 mg Enteric Coated Tablet PO SCH (08:16)
[2021-08-22] MEDS: cloNIDine 0.1 MG TAB PO SCH (08:16)
[2021-08-22] MEDS: predniSONE 20 MG TAB PO SCH (08:16)
[2021-08-22] MEDS: Benzonatate 100 MG CAP PO SCH (08:16)
[2021-08-22] MEDS: Polyethylene Glycol 3350 17 GM Packet PO SCH (08:17)
[2021-08-22] MEDS: Diltiazem HCl CD 300 mg Capsule PO SCH (08:17)
[2021-08-22] MEDS: Senokot S 8.6-50 MG TAB PO SCH (08:17)
[2021-08-22] MEDS: Enoxaparin Sodium 40 MG/0.4 ML SYRINGE SC SCH (08:17)
[2021-08-22 08:20] VITALS: BP 167/82
== END 2021-08-22 19:35 | disposition home health service (06) | DRG 189 ==
LOC: ERS 04:25 → ERHOLD 06:01 → IMCU/EMU 07:01 → 2NO 08:26 → IMCU/EMU 08-11 11:55 → T4-A 08-19 16:56
PROVIDERS: ADMIT Family Medicine; ATTEND Family Medicine
PROC: 5A09357 Assistance with Respiratory Ventilation, Less than 24 Consecutive Hours, Continuous Positive Airway Pressure (ICD-10-PCS; principal; 2021-08-11)
DX: J96.21 Acute and chronic respiratory failure with hypoxia (principal); I47.1 Supraventricular tachycardia; I50.22 Chronic systolic (congestive) heart failure; I13.0 Hypertensive heart and chronic kidney disease with heart failure and stage 1 through stage 4 chronic kidney disease, or unspecified chronic kidney disease; Q60.3 Renal hypoplasia, unilateral; Z23 Encounter for immunization; Z20.822 Contact with and (suspected) exposure to COVID-19; J43.9 Emphysema, unspecified; I25.10 Atherosclerotic heart disease of native coronary artery without angina pectoris; F17.210 Nicotine dependence, cigarettes, uncomplicated; F41.9 Anxiety disorder, unspecified; N18.30 Chronic kidney disease, stage 3 unspecified; K21.9 Gastro-esophageal reflux disease without esophagitis; E78.2 Mixed hyperlipidemia; E78.00 Pure hypercholesterolemia, unspecified; K59.00 Constipation, unspecified; I45.81 Long QT syndrome; I71.4 Abdominal aortic aneurysm, without rupture; I25.5 Ischemic cardiomyopathy; E87.5 Hyperkalemia; I08.3 Combined rheumatic disorders of mitral, aortic and tricuspid valves; J96.22 Acute and chronic respiratory failure with hypercapnia; H26.9 Unspecified cataract; I25.2 Old myocardial infarction; Z95.1 Presence of aortocoronary bypass graft; Z95.5 Presence of coronary angioplasty implant and graft; Z79.899 Other long term (current) drug therapy; Z79.82 Long term (current) use of aspirin
CPT/HCPCS: 36415; 71045; 71275; 74174; 76706; 80048; 80053; 80061; 82550; 83036; 83690; 83735; 83880; 84145; 84484; 85025; 87449; 87899; 90471; 90662; 90732; 93005; 93306; 94640; 94760; 96374; G0008; G0009; J0282; J0360; J1650; J1940; J2060; J2920; J2930; J3010; J3475; J3490; J7050; J7070; J7512; J7620; Q9967; U0002; U0003; U0005

== ENCOUNTER 2021-09-05 19:52 | Inpatient (IN) | payer MEDICARE, OTHER ==
[2021-09-05 20:36] LABS: #Eosinphils 0.2 thou/uL (0.0-0.7); #Lymphocytes 0.5 thou/uL (1.20-3.40); #Monocytes 0.3 thou/uL (0.11-0.59); #Neutrophils 6.8 thou/uL (1.40-6.50); %Basophils 0.2 % (0.0-1.0); %Eosinophils 2.3 % (0.0-10.0); %Lymphocytes 6.4 % (21.0-51.0); %Monocytes 4.3 % (0.0-10.0); %Neutrophils 86.8 % (42.0-75.0); Hemoglobin 12.7 g/dL (14.0-18.0); Mean Corpuscular HGB CONC 34.3 g/dL (32.0-36.0); Mean Corpuscular Hemoglobin 32.1 pg (27.0-31.0); Mean Corpuscular Volume 93.8 fL (78.0-98.0); Mean Platelet Volume 7.1 fL (7.4-10.4); Platelet Count 148 thou/uL (130-400); RBC Distribution Width 14.3 % (11.5-14.5); Red Blood Cell (RBC) Count 3.95 mill/uL (4.70-6.10); White Blood Cell (WBC) Count 7.8 thou/uL (4.8-10.8)
[2021-09-05 21:00] LABS: ALT (SGPT) 81 U/L (8-55); AST (SGOT) 28 U/L (5-34); Albumin 3.4 g/dL (3.4-4.8); Alkaline Phosphatase 70 U/L (40-110); Anion Gap 15 mmol/L (10-20); BUN (Urea Nitrogen) 20 mg/dL (8.4-25.7); Bilirubin, Total 0.6 mg/dL (0.2-1.2); Calc. Creatinine Clearance 0 mL/min (70-130); Calcium 7.8 mg/dL (7.8-10.44); Carbon Dioxide 22 mmol/L (23-31); Chloride 102 mmol/L (98-107); Globulin 2.3 g/dL (2.4-3.5); Glucose 150 mg/dL (83-110); Lipase 26 U/L (8-78); Potassium 4.1 mmol/L (3.5-5.1); Protein, Total 5.7 g/dL (5.8-8.1); Sodium 135 mmol/L (136-145)
[2021-09-05 21:17] LABS: CKMB 2.7 ng/mL (0-6.6)
[2021-09-05] MEDS ORDERED: Enoxaparin Sodium 80 MG/0.8 ML SYRINGE ONE (21:36)
[2021-09-05 23:59] LABS: Troponin I 0.037 ng/mL (< 0.028)
[2021-09-06] MEDS ORDERED: Ondansetron PF 4 MG/2 ML Vial IVP PRN (01:15)
[2021-09-06] MEDS ORDERED: Acetaminophen 325 MG TAB PO PRN (01:15)
[2021-09-06] MEDS ORDERED: Ondansetron ODT 4 MG TAB SL PRN (01:15)
[2021-09-06 01:23] VITALS: BMI 23.3
[2021-09-06 01:59] LABS: SARS-CoV-2 NAA Rapid Test Not Detected (NotDetected)
[2021-09-06] MEDS: Albuterol Sulfate 2.5 mg/3 ml Neb NEB PRN ×2 (02:09→06:18)
[2021-09-06] MEDS ORDERED: Aspirin Chewable 81 MG TAB PO SCH (02:30)
[2021-09-06] MEDS ORDERED: methylPREDNISolone Sod Succ 40 MG VIAL IVP SCH ×2 (02:30→09:00)
[2021-09-06 03:08] LABS: #Lymphocytes 0.3 thou/uL (1.20-3.40); #Neutrophils 5.4 thou/uL (1.40-6.50); %Eosinophils 0.3 % (0.0-10.0); %Lymphocytes 5.3 % (21.0-51.0); %Monocytes 0.7 % (0.0-10.0); %Neutrophils 93.8 % (42.0-75.0); Hemoglobin 11.9 g/dL (14.0-18.0); Mean Corpuscular HGB CONC 33.7 g/dL (32.0-36.0); Mean Corpuscular Hemoglobin 31.7 pg (27.0-31.0); Mean Corpuscular Volume 94.1 fL (78.0-98.0); Mean Platelet Volume 7.7 fL (7.4-10.4); Platelet Count 140 thou/uL (130-400); RBC Distribution Width 14.3 % (11.5-14.5); Red Blood Cell (RBC) Count 3.76 mill/uL (4.70-6.10); White Blood Cell (WBC) Count 5.8 thou/uL (4.8-10.8)
[2021-09-06 03:35] LABS: Anion Gap 13 mmol/L (10-20); BUN (Urea Nitrogen) 23 mg/dL (8.4-25.7); Calc. Creatinine Clearance 45 mL/min (70-130); Calcium 8.7 mg/dL (7.8-10.44); Carbon Dioxide 25 mmol/L (23-31); Chloride 102 mmol/L (98-107); Glucose 195 mg/dL (83-110); Potassium 4.4 mmol/L (3.5-5.1); Sodium 136 mmol/L (136-145)
[2021-09-06] MEDS: Nitroglycerin 2% Ointment 1 INCH/1 GM Packet TOP SCH ×2 (06:55→14:28)
[2021-09-06] MEDS: Enoxaparin Sodium 80 MG/0.8 ML SYRINGE SC SCH ×2 (07:48→20:11)
[2021-09-06] MEDS: Azithromycin 500 MG in Sodium Chloride 0.9% 250 ML 250 ML IVPB SCH (07:48)
[2021-09-06] MEDS: Aspirin Chewable 81 MG TAB PO SCH (07:48)
[2021-09-06] MEDS: Lorazepam 0.5 MG TAB PO PRN ×3 (08:20→20:15)
[2021-09-06] MEDS: Methocarbamol 500 MG TAB PO SCH ×2 (08:21→20:11)
[2021-09-06] MEDS ORDERED: Diltiazem HCl CD 300 mg Capsule PO SCH (09:00)
[2021-09-06] MEDS ORDERED: Enoxaparin Sodium 80 MG/0.8 ML SYRINGE SC SCH (09:00)
[2021-09-06] MEDS ORDERED: Albuterol Sulfate 2.5 mg/3 ml Neb NEB PRN (13:53)
[2021-09-06] MEDS ORDERED: Furosemide 100 MG/10 ML VIAL SLOW IVP SCH (14:00)
[2021-09-06] MEDS: Metoprolol Tartrate 25 MG TAB PO SCH ×2 (14:46→20:10)
[2021-09-06] MEDS: methylPREDNISolone Sod Succ 40 MG VIAL IVP SCH (17:14)
[2021-09-06] MEDS: Atorvastatin Calcium 40 MG TAB PO SCH (20:10)
[2021-09-06] MEDS: Bisacodyl 5 MG TAB PO PRN (20:15)
[2021-09-07] MEDS: methylPREDNISolone Sod Succ 40 MG VIAL IVP SCH ×5 (00:34→23:54)
[2021-09-07] MEDS: Lorazepam 0.5 MG TAB PO PRN ×2 (05:15→20:47)
[2021-09-07 05:47] LABS: #Lymphocytes 0.3 thou/uL (1.20-3.40); #Monocytes 0.2 thou/uL (0.11-0.59); %Eosinophils 0.1 % (0.0-10.0); %Lymphocytes 3.8 % (21.0-51.0); %Monocytes 2.9 % (0.0-10.0); %Neutrophils 93.2 % (42.0-75.0); Hemoglobin 11.9 g/dL (14.0-18.0); Mean Corpuscular HGB CONC 33.5 g/dL (32.0-36.0); Mean Corpuscular Hemoglobin 31.7 pg (27.0-31.0); Mean Corpuscular Volume 94.7 fL (78.0-98.0); Mean Platelet Volume 7.7 fL (7.4-10.4); Platelet Count 160 thou/uL (130-400); RBC Distribution Width 14.4 % (11.5-14.5); Red Blood Cell (RBC) Count 3.76 mill/uL (4.70-6.10); White Blood Cell (WBC) Count 6.4 thou/uL (4.8-10.8)
[2021-09-07 06:07] LABS: Anion Gap 10 mmol/L (10-20); BUN (Urea Nitrogen) 29 mg/dL (8.4-25.7); Calc. Creatinine Clearance 55 mL/min (70-130); Calcium 8.4 mg/dL (7.8-10.44); Carbon Dioxide 29 mmol/L (23-31); Chloride 99 mmol/L (98-107); Glucose 202 mg/dL (83-110); Sodium 134 mmol/L (136-145)
[2021-09-07] MEDS: Azithromycin 500 MG in Sodium Chloride 0.9% 250 ML 250 ML IVPB SCH (08:27)
[2021-09-07] MEDS: Methocarbamol 500 MG TAB PO SCH ×2 (08:29→20:47)
[2021-09-07] MEDS: Aspirin Chewable 81 MG TAB PO SCH (08:29)
[2021-09-07] MEDS: Metoprolol Tartrate 25 MG TAB PO SCH ×3 (08:30→20:48)
[2021-09-07] MEDS: Enoxaparin Sodium 80 MG/0.8 ML SYRINGE SC SCH (08:31)
[2021-09-07] MEDS ORDERED: Chloraseptic Spray 180 ml Bottle PO PRN ×2 (12:39→12:43)
[2021-09-07] MEDS: Benzonatate 100 MG CAP PO SCH ×3 (12:52→20:47)
[2021-09-07] MEDS: Atorvastatin Calcium 40 MG TAB PO SCH (20:47)
[2021-09-08] MEDS: Lorazepam 0.5 MG TAB PO PRN ×2 (03:16→14:10)
[2021-09-08 06:09] LABS: Anion Gap 7 mmol/L (10-20); BUN (Urea Nitrogen) 32 mg/dL (8.4-25.7); Calc. Creatinine Clearance 57 mL/min (70-130); Calcium 8.3 mg/dL (7.8-10.44); Carbon Dioxide 32 mmol/L (23-31); Chloride 99 mmol/L (98-107); Glucose 317 mg/dL (83-110); Potassium 4.1 mmol/L (3.5-5.1); Sodium 134 mmol/L (136-145)
[2021-09-08] MEDS: methylPREDNISolone Sod Succ 40 MG VIAL IVP SCH ×2 (06:58→11:30)
[2021-09-08] MEDS: Methocarbamol 500 MG TAB PO SCH (08:47)
[2021-09-08] MEDS: Metoprolol Tartrate 25 MG TAB PO SCH ×2 (08:47→14:11)
[2021-09-08] MEDS: Aspirin Chewable 81 MG TAB PO SCH (08:47)
[2021-09-08] MEDS: Benzonatate 100 MG CAP PO SCH ×2 (08:47→14:11)
[2021-09-08] MEDS: Bisacodyl 5 MG TAB PO PRN (08:56)
[2021-09-08] MEDS: Azithromycin 500 MG in Sodium Chloride 0.9% 250 ML 250 ML IVPB SCH (08:57)
[2021-09-08] MEDS ORDERED: Enoxaparin Sodium 40 MG/0.4 ML SYRINGE SC SCH (09:00)
[2021-09-08] MEDS ORDERED: Furosemide 40 MG/4 ML VIAL SLOW IVP SCH (09:00)
[2021-09-08 16:18] VITALS: BP 134/75; TEMP 97.6
== END 2021-09-08 17:31 | disposition home or self-care (01) | DRG 280 ==
LOC: ERS 19:52 → 2SW 22:32 → ERHOLD 23:58 → 2SW 09-06 01:03 → OBSVTOIN 09-07 14:33
PROVIDERS: ADMIT Student in an Organized Health Care Education/Training Program; ATTEND Hospitalist
DX: I13.0 Hypertensive heart and chronic kidney disease with heart failure and stage 1 through stage 4 chronic kidney disease, or unspecified chronic kidney disease (principal); J96.21 Acute and chronic respiratory failure with hypoxia; I21.4 Non-ST elevation (NSTEMI) myocardial infarction; I50.23 Acute on chronic systolic (congestive) heart failure; J44.1 Chronic obstructive pulmonary disease with (acute) exacerbation; N17.9 Acute kidney failure, unspecified; F17.210 Nicotine dependence, cigarettes, uncomplicated; D63.1 Anemia in chronic kidney disease; N18.9 Chronic kidney disease, unspecified; I25.5 Ischemic cardiomyopathy; I25.10 Atherosclerotic heart disease of native coronary artery without angina pectoris; K21.9 Gastro-esophageal reflux disease without esophagitis; Z95.1 Presence of aortocoronary bypass graft; Z79.82 Long term (current) use of aspirin; Z79.51 Long term (current) use of inhaled steroids; Z79.52 Long term (current) use of systemic steroids; Z79.899 Other long term (current) drug therapy; I25.2 Old myocardial infarction; Z98.61 Coronary angioplasty status; E78.5 Hyperlipidemia, unspecified; Z20.822 Contact with and (suspected) exposure to COVID-19
CPT/HCPCS: 0240U; 36415; 71045; 80048; 80053; 82553; 83690; 83880; 84484; 85025; 94640; 94760; 96365; 96372; 96375; 96376; G0378; J0456; J1650; J1940; J2920; J7050; J7611; J7620

== ENCOUNTER 2021-09-25 12:10 | Inpatient (IN) | payer OTHER ==
[2021-09-25 13:24] LABS: #Eosinphils 0.1 thou/uL (0.0-0.7); #Lymphocytes 0.5 thou/uL (1.20-3.40); #Monocytes 0.2 thou/uL (0.11-0.59); #Neutrophils 7.7 thou/uL (1.40-6.50); %Basophils 0.2 % (0.0-1.0); %Eosinophils 0.7 % (0.0-10.0); %Lymphocytes 5.3 % (21.0-51.0); %Monocytes 2.2 % (0.0-10.0); %Neutrophils 91.6 % (42.0-75.0); Hemoglobin 12.7 g/dL (14.0-18.0); Mean Corpuscular HGB CONC 35.2 g/dL (32.0-36.0); Mean Corpuscular Hemoglobin 32.7 pg (27.0-31.0); Mean Platelet Volume 7.1 fL (7.4-10.4); Platelet Count 225 thou/uL (130-400); RBC Distribution Width 13.8 % (11.5-14.5); Red Blood Cell (RBC) Count 3.86 mill/uL (4.70-6.10); White Blood Cell (WBC) Count 8.4 thou/uL (4.8-10.8)
[2021-09-25] MEDS ORDERED: Furosemide 20 MG/2 ML VIAL ONE (13:28)
[2021-09-25 13:39] LABS: Actual Bicarbonate (HCO3v) 28 mEq/L (22-28); Analyzer IN Cardio ER; Base Excess 3.5 mEq/L (-2.0 to +3.0); Chloride (VBG) 90 mmol/L (98-106); Hemoglobin (Hb) 13.3 g/dL (12.6-17.4); Potassium (VBG) 3.66 mmol/L (3.70-5.30); Sodium 127.8 mmol/L (133-146); pH (venous) 7.44 (7.32-7.43)
[2021-09-25 14:14] LABS: SARS-CoV-2 NAA Rapid Test Not Detected (NotDetected)
[2021-09-25] MEDS ORDERED: Acetaminophen 500 MG TAB PO PRN (17:34)
[2021-09-25] MEDS ORDERED: Ondansetron ODT 4 MG TAB PO PRN (17:34)
[2021-09-25] MEDS ORDERED: Ondansetron PF 4 MG/2 ML Vial IVP PRN (17:34)
[2021-09-25] MEDS ORDERED: hydrALAZINE 20 MG/ML VIAL SLOW IVP PRN (17:34)
[2021-09-25] MEDS: Famotidine 20 MG TAB PO SCH (21:08)
[2021-09-25] MEDS: Atorvastatin Calcium 40 MG TAB PO SCH (21:09)
[2021-09-25] MEDS: Methocarbamol 500 MG TAB PO SCH (21:10)
[2021-09-25] MEDS: Lorazepam 0.5 MG TAB PO PRN (21:14)
[2021-09-25] MEDS: methylPREDNISolone Sod Succ 40 MG VIAL IVP SCH ×2 (21:15→23:23)
[2021-09-25] MEDS: Mometasone 200 MCG/Formoterol 5 MCG 120 PUFF INHALER INH SCH (22:35)
[2021-09-25 22:49] VITALS: BMI 24.0
[2021-09-26] MEDS: Lorazepam 0.5 MG TAB PO PRN ×3 (02:48→20:54)
[2021-09-26 03:15] LABS: #Lymphocytes 0.3 thou/uL (1.20-3.40); #Monocytes 0.1 thou/uL (0.11-0.59); #Neutrophils 3.9 thou/uL (1.40-6.50); %Eosinophils 0.2 % (0.0-10.0); %Lymphocytes 6.6 % (21.0-51.0); %Monocytes 1.9 % (0.0-10.0); %Neutrophils 91.3 % (42.0-75.0); Mean Corpuscular HGB CONC 33.8 g/dL (32.0-36.0); Mean Corpuscular Hemoglobin 31.5 pg (27.0-31.0); Mean Corpuscular Volume 93.3 fL (78.0-98.0); Platelet Count 222 thou/uL (130-400); RBC Distribution Width 13.8 % (11.5-14.5); White Blood Cell (WBC) Count 4.3 thou/uL (4.8-10.8)
[2021-09-26 03:42] LABS: ALT (SGPT) 128 U/L (8-55); AST (SGOT) 51 U/L (5-34); Albumin 3.4 g/dL (3.4-4.8); Alkaline Phosphatase 74 U/L (40-110); Anion Gap 15 mmol/L (10-20); BUN (Urea Nitrogen) 21 mg/dL (8.4-25.7); Bilirubin, Total 0.6 mg/dL (0.2-1.2); Calc. Creatinine Clearance 47 mL/min (70-130); Calcium 8.7 mg/dL (7.8-10.44); Carbon Dioxide 27 mmol/L (23-31); Chloride 92 mmol/L (98-107); Globulin 2.9 g/dL (2.4-3.5); Glucose 329 mg/dL (83-110); Potassium 4.2 mmol/L (3.5-5.1); Protein, Total 6.3 g/dL (5.8-8.1); Sodium 130 mmol/L (136-145)
[2021-09-26] MEDS: Mometasone 200 MCG/Formoterol 5 MCG 120 PUFF INHALER INH SCH ×2 (06:32→19:26)
[2021-09-26] MEDS: Furosemide 40 MG/4 ML VIAL SLOW IVP SCH ×2 (06:47→15:24)
[2021-09-26] MEDS: methylPREDNISolone Sod Succ 40 MG VIAL IVP SCH ×4 (06:47→23:55)
[2021-09-26] MEDS: Famotidine 20 MG TAB PO SCH ×2 (08:26→20:55)
[2021-09-26] MEDS: Aspirin 81 mg Enteric Coated Tablet PO SCH (08:26)
[2021-09-26] MEDS: Methocarbamol 500 MG TAB PO SCH ×2 (08:26→21:00)
[2021-09-26] MEDS ORDERED: Aspirin 81 mg Enteric Coated Tablet PO SCH (09:00)
[2021-09-26] MEDS: Cefdinir 300 MG CAP PO SCH ×2 (10:54→20:54)
[2021-09-26] MEDS: Metoprolol Tartrate 25 MG TAB PO SCH ×2 (10:54→20:55)
[2021-09-26] MEDS: Atorvastatin Calcium 40 MG TAB PO SCH (20:55)
[2021-09-27] MEDS ORDERED: Albuterol Sulfate 1.25 MG/3 ML NEB NEB PRN (00:06)
[2021-09-27 05:02] LABS: #Lymphocytes 0.3 thou/uL (1.20-3.40); #Monocytes 0.2 thou/uL (0.11-0.59); #Neutrophils 7.1 thou/uL (1.40-6.50); %Eosinophils 0.2 % (0.0-10.0); %Lymphocytes 3.3 % (21.0-51.0); %Neutrophils 93.5 % (42.0-75.0); Hemoglobin 10.7 g/dL (14.0-18.0); Mean Corpuscular HGB CONC 33.8 g/dL (32.0-36.0); Mean Corpuscular Hemoglobin 32.2 pg (27.0-31.0); Mean Corpuscular Volume 95.2 fL (78.0-98.0); Mean Platelet Volume 7.1 fL (7.4-10.4); Platelet Count 227 thou/uL (130-400); RBC Distribution Width 13.9 % (11.5-14.5); Red Blood Cell (RBC) Count 3.33 mill/uL (4.70-6.10); White Blood Cell (WBC) Count 7.6 thou/uL (4.8-10.8)
[2021-09-27 05:28] LABS: ALT (SGPT) 124 U/L (8-55); AST (SGOT) 37 U/L (5-34); Alkaline Phosphatase 60 U/L (40-110); Anion Gap 12 mmol/L (10-20); BUN (Urea Nitrogen) 22 mg/dL (8.4-25.7); Bilirubin, Total 0.3 mg/dL (0.2-1.2); Calc. Creatinine Clearance 55 mL/min (70-130); Calcium 8.4 mg/dL (7.8-10.44); Carbon Dioxide 30 mmol/L (23-31); Chloride 95 mmol/L (98-107); Globulin 2.4 g/dL (2.4-3.5); Glucose 265 mg/dL (83-110); Potassium 3.8 mmol/L (3.5-5.1); Protein, Total 5.4 g/dL (5.8-8.1); Sodium 133 mmol/L (136-145)
[2021-09-27] MEDS: methylPREDNISolone Sod Succ 40 MG VIAL IVP SCH (06:01)
[2021-09-27] MEDS: Furosemide 40 MG/4 ML VIAL SLOW IVP SCH (06:01)
[2021-09-27] MEDS ORDERED: Dextrose 50% Abboject 50 ML SYRINGE ONE (06:11)
[2021-09-27] MEDS: Mometasone 200 MCG/Formoterol 5 MCG 120 PUFF INHALER INH SCH (07:34)
[2021-09-27] MEDS: Lorazepam 0.5 MG TAB PO PRN (08:03)
[2021-09-27] MEDS: Aspirin 81 mg Enteric Coated Tablet PO SCH (08:03)
[2021-09-27] MEDS: Metoprolol Tartrate 25 MG TAB PO SCH (08:03)
[2021-09-27] MEDS: Cefdinir 300 MG CAP PO SCH (08:03)
[2021-09-27] MEDS: Famotidine 20 MG TAB PO SCH (08:03)
[2021-09-27] MEDS: Methocarbamol 500 MG TAB PO SCH (08:06)
[2021-09-27 12:06] VITALS: BP 133/68; TEMP 97.8
[2021-09-27] MEDS ORDERED: Furosemide 40 MG TAB PO SCH (14:00)
[2021-09-27] MEDS ORDERED: Benzonatate 100 MG CAP PO SCH (15:00)
== END 2021-09-27 12:50 | disposition home health service (06) | DRG 291 ==
LOC: ERS 12:10 → IMCU/EMU 17:17 → 2NO 09-26 13:25
PROVIDERS: ADMIT Family Medicine; ATTEND Family Medicine
DX: I13.0 Hypertensive heart and chronic kidney disease with heart failure and stage 1 through stage 4 chronic kidney disease, or unspecified chronic kidney disease (principal); Z20.822 Contact with and (suspected) exposure to COVID-19; I50.33 Acute on chronic diastolic (congestive) heart failure; J96.21 Acute and chronic respiratory failure with hypoxia; E87.1 Hypo-osmolality and hyponatremia; N17.9 Acute kidney failure, unspecified; J44.1 Chronic obstructive pulmonary disease with (acute) exacerbation; F41.9 Anxiety disorder, unspecified; I25.5 Ischemic cardiomyopathy; N18.2 Chronic kidney disease, stage 2 (mild); I25.10 Atherosclerotic heart disease of native coronary artery without angina pectoris; E78.5 Hyperlipidemia, unspecified; F17.210 Nicotine dependence, cigarettes, uncomplicated; K21.9 Gastro-esophageal reflux disease without esophagitis; E78.00 Pure hypercholesterolemia, unspecified; Z95.1 Presence of aortocoronary bypass graft; Z79.82 Long term (current) use of aspirin; Z79.51 Long term (current) use of inhaled steroids; Z79.899 Other long term (current) drug therapy; Z82.49 Family history of ischemic heart disease and other diseases of the circulatory system; Z95.5 Presence of coronary angioplasty implant and graft; I25.2 Old myocardial infarction
CPT/HCPCS: 0240U; 36415; 71045; 80053; 82805; 83880; 84484; 85025; 87040; 93005; 94640; J1940; J2920; J7620

== ENCOUNTER 2021-10-16 23:01 | Inpatient (IN) | payer OTHER ==
[2021-10-16] MEDS ORDERED: Midazolam HCl 5 mg/ml Vial ONE (23:04)
[2021-10-16] MEDS ORDERED: Fentanyl 100 MCG/2 ML VIAL ONE (23:04)
[2021-10-16] MEDS ORDERED: EPINEPHrine 1 MG/10 ML Abboject SYRINGE ONE (23:07)
[2021-10-16] MEDS ORDERED: Sodium Bicarb 50 MEQ/50 ML Abboject 8.4% SYRINGE ONE (23:07)
[2021-10-16] MEDS ORDERED: Amiodarone 150 MG/3 ML VIAL ONE (23:07)
[2021-10-16] MEDS ORDERED: Metoprolol Tartrate 5 MG/5 ML VIAL ONE (23:12)
[2021-10-16] MEDS ORDERED: Succinylcholine 200 MG/10 ml SYRINGE FS ONE (23:14)
[2021-10-16] MEDS ORDERED: Norepinephrine 8 MG/0.9% NS 250 ML ONE (23:35)
[2021-10-16 23:38] LABS: #Basophils 0.1 thou/uL (0.0-0.2); #Eosinphils 0.3 thou/uL (0.0-0.7); #Lymphocytes 4.4 thou/uL (1.20-3.40); #Neutrophils 10.4 thou/uL (1.40-6.50); %Basophils 0.8 % (0.0-1.0); %Eosinophils 1.8 % (0.0-10.0); %Lymphocytes 27.2 % (21.0-51.0); %Monocytes 6.2 % (0.0-10.0); Hemoglobin 13.7 g/dL (14.0-18.0); Mean Corpuscular HGB CONC 32.6 g/dL (32.0-36.0); Mean Corpuscular Hemoglobin 31.2 pg (27.0-31.0); Mean Corpuscular Volume 95.5 fL (78.0-98.0); Mean Platelet Volume 8.8 fL (7.4-10.4); Platelet Count 183 thou/uL (130-400); RBC Distribution Width 14.3 % (11.5-14.5); Red Blood Cell (RBC) Count 4.39 mill/uL (4.70-6.10); White Blood Cell (WBC) Count 16.2 thou/uL (4.8-10.8)
[2021-10-16 23:51] LABS: ALT (SGPT) 41 U/L (8-55); AST (SGOT) 35 U/L (5-34); Albumin 3.4 g/dL (3.4-4.8); Alkaline Phosphatase 91 U/L (40-110); Anion Gap 18 mmol/L (10-20); BUN (Urea Nitrogen) 18 mg/dL (8.4-25.7); Bilirubin, Total 0.4 mg/dL (0.2-1.2); Calc. Creatinine Clearance 0 mL/min (70-130); Calcium 8.1 mg/dL (7.8-10.44); Carbon Dioxide 23 mmol/L (23-31); Chloride 100 mmol/L (98-107); Globulin 2.5 g/dL (2.4-3.5); Glucose 244 mg/dL (83-110); Protein, Total 5.9 g/dL (5.8-8.1); Sodium 136 mmol/L (136-145)
[2021-10-17] MEDS ORDERED: Ketamine 50 MG/ML (10ML VIAL) ONE (00:02)
[2021-10-17] MEDS ORDERED: methylPREDNISolone Sod Succ/PF 125 MG/2 ML VIAL ONE (00:12)
[2021-10-17 00:29] LABS: SARS-CoV-2 NAA Rapid Test Not Detected (NotDetected)
[2021-10-17 00:33] LABS: Actual Bicarbonate (HCO3a) 25.2 mEq/L (22-28); Analyzer IN Cardio ER; Base Excess (BEa) -0.2 mEq/L (-2.0 to +3.0); CO2 Tension 44.3 mmHg (35.0-45.0); Calcium, Ionized (arterial) 0.93 mmol/L (1.12-1.30); Carboxyhemoglobin (COHb) 1.5 gm% (0.0-3.0); Hemoglobin (Hb) 12.8 g/dL (14.0-18.0); O2 Tension (PaO2), arterial 473.9 mmHg (> 70.0); Potassium - ABG Lab 5.32 mmol/L (3.70-5.30); pH, Arterial 7.37 (7.35-7.45)
[2021-10-17 00:38] LABS: ALV-art Gradient 183.725 mmHg (0-20); Puncture Site RRA
[2021-10-17] MEDS ORDERED: Magnesium 2 GM/50 ML BAG (IN WATER) ONE (00:51)
[2021-10-17 01:12] LABS: CKMB 1.9 ng/mL (0-6.6)
[2021-10-17] MEDS ORDERED: Ventilator Sedation Protocol 1 EACH FS SCH (01:15)
[2021-10-17] MEDS ORDERED: Vecuronium 10 MG VIAL ONE ×2 (01:16→03:18)
[2021-10-17] MEDS ORDERED: Fentanyl 100 MCG/2 ML VIAL ONE ×2 (01:16→02:55)
[2021-10-17] MEDS ORDERED: Water For Inject, Bacteriostat 30 ML ONE ×2 (01:19→01:22)
[2021-10-17] MEDS ORDERED: Propofol BOLUS 1,000 MG/100 ML VIAL IV PRN (01:30)
[2021-10-17] MEDS ORDERED: Morphine 2 MG/ML VIAL SLOW IVP PRN (01:30)
[2021-10-17] MEDS ORDERED: Fentanyl BOLUS 250 ML IVPB PRN (01:30)
[2021-10-17] MEDS ORDERED: DISCONTINUE PREVIOUS NARCOTIC PAIN MEDICATIONS AND BENZODIAZEPINES FS SCH (01:30)
[2021-10-17] MEDS ORDERED: Fentanyl CADD 100 ML IV SCH (01:30)
[2021-10-17] MEDS ORDERED: Ondansetron ODT 4 MG TAB PO PRN (02:02)
[2021-10-17] MEDS ORDERED: Ondansetron PF 4 MG/2 ML Vial IVP PRN (02:02)
[2021-10-17] MEDS ORDERED: Acetaminophen 650 MG Suppository PR PRN (02:02)
[2021-10-17] MEDS ORDERED: Magnesium Sulfate 3 GM in Sodium Chloride 0.9% 100 ML IVPB SCH (02:15)
[2021-10-17 02:58] LABS: Hemoglobin 13.6 g/dL (14.0-18.0); Mean Corpuscular HGB CONC 32.6 g/dL (32.0-36.0); Mean Corpuscular Hemoglobin 31.1 pg (27.0-31.0); Mean Corpuscular Volume 95.5 fL (78.0-98.0); Mean Platelet Volume 8.3 fL (7.4-10.4); Platelet Count 199 thou/uL (130-400); RBC Distribution Width 14.5 % (11.5-14.5); Red Blood Cell (RBC) Count 4.38 mill/uL (4.70-6.10); White Blood Cell (WBC) Count 20.6 thou/uL (4.8-10.8)
[2021-10-17] MEDS: Lorazepam 2 MG/ML VIAL SLOW IVP PRN ×2 (03:15→12:55)
[2021-10-17 03:16] LABS: Troponin I 0.201 ng/mL (< 0.028)
[2021-10-17 03:20] LABS: Band 7 % (5-11); Lymphocytes 1 % (21-51); MDiff Complete? YES; Monocytes 10 % (0-10); Neutrophil 81 % (42-75); Reactive Lymphocytes 1 % (0-10)
[2021-10-17 03:45] LABS: Anion Gap 18 mmol/L (10-20); BUN (Urea Nitrogen) 22 mg/dL (8.4-25.7); Calc. Creatinine Clearance 0 mL/min (70-130); Calcium 7.9 mg/dL (7.8-10.44); Carbon Dioxide 24 mmol/L (23-31); Chloride 101 mmol/L (98-107); Glucose 149 mg/dL (83-110); Potassium 4.8 mmol/L (3.5-5.1); Sodium 138 mmol/L (136-145)
[2021-10-17] MEDS ORDERED: fentaNYL Citrate/PF 2,000 MCG in Sodium Chloride 0.9% 60 ML IV SCH (03:45)
[2021-10-17] MEDS: Propofol 1,000 MG/100 ML VIAL IV PRN ×2 (04:01→12:55)
[2021-10-17] MEDS ORDERED: Sodium Chloride 0.9% 1,000 ML IV SCH ×2 (04:15→13:30)
[2021-10-17] MEDS ORDERED: VANCOMYCIN 1.75 GM/350 ML BAG 1.75 GM in Premix Bag 1 BAG IVPB SCH (04:30)
[2021-10-17 05:29] LABS: Lactic Acid 1.1 mmol/L (0.5-2.2)
[2021-10-17 05:39] LABS: Troponin I 0.256 ng/mL (< 0.028)
[2021-10-17 08:12] LABS: Bilirubin Negative (Negative); Blood, Urine 3+ (Negative); Clarity Turbid (Clear); Glucose, Urine (Dipstick) Normal (Negative); Ketone, Urine Trace mg/dL (Negative); Leukocyte 250 Leu/uL (Negative); Nitrite Negative (Negative); Protein, Urine (Dipstick) 30 mg/dL (Neg-Trace); RBC/HPF Greater than 50 HPF (0-3); Squamous Epithelial 0-3 HPF (0-3); Urobilinogen Normal mg/dL (Less than 2); WBC/HPF Greater than 50 HPF (0-3)
[2021-10-17 08:38] LABS: Bacteria/HPF 1+ HPF (None Seen)
[2021-10-17 08:40] LABS: Urine Culture Reflex Yes Yes
[2021-10-17] MEDS: Enoxaparin Sodium 40 MG/0.4 ML SYRINGE SC SCH (09:23)
[2021-10-17] MEDS: methylPREDNISolone Sod Succ 40 MG VIAL IVP SCH (09:23)
[2021-10-17] MEDS ORDERED: Norepinephrine 8 MG/0.9% NS 250 ML IVPB SCH (09:30)
[2021-10-17 11:35] LABS: Anion Gap 17 mmol/L (10-20); BUN (Urea Nitrogen) 27 mg/dL (8.4-25.7); Calc. Creatinine Clearance 35 mL/min (70-130); Calcium 7.8 mg/dL (7.8-10.44); Carbon Dioxide 25 mmol/L (23-31); Chloride 103 mmol/L (98-107); Glucose 146 mg/dL (83-110); Potassium 4.6 mmol/L (3.5-5.1); Sodium 140 mmol/L (136-145)
[2021-10-17] MEDS ORDERED: Furosemide 20 MG/2 ML VIAL SLOW IVP SCH (14:00)
[2021-10-18] MEDS ORDERED: Vancomycin 1 GM in Premix Bag 1 BAG IVPB SCH (05:00)
[2021-10-18 05:45] VITALS: BMI 21.6
[2021-10-18] MEDS: Vancomycin HCl 1 GM in Sodium Chloride 0.9% 250 ML 250 ML IVPB SCH (06:11)
[2021-10-18] MEDS: Propofol 1,000 MG/100 ML VIAL IV PRN (06:12)
[2021-10-18] MEDS ORDERED: Metoprolol Tartrate 5 MG/5 ML VIAL IVP SCH (08:45)
[2021-10-18] MEDS ORDERED: Metolazone 5 MG TAB PO SCH (09:00)
[2021-10-18] MEDS: Enoxaparin Sodium 40 MG/0.4 ML SYRINGE SC SCH (09:05)
[2021-10-18] MEDS: methylPREDNISolone Sod Succ 40 MG VIAL IVP SCH (09:05)
[2021-10-18] MEDS ORDERED: Furosemide 40 MG/4 ML VIAL SLOW IVP SCH (11:15)
[2021-10-18] MEDS ORDERED: Potassium Bicarbonate/Cit Ac 20 MEQ TAB PO SCH (12:00)
[2021-10-18] MEDS: Acetaminophen 325 MG TAB PO PRN (21:57)
[2021-10-19] MEDS ORDERED: Morphine 4 MG/ML VIAL SLOW IVP SCH (02:00)
[2021-10-19 04:38] LABS: Vancomycin, Trough 14.8 ug/mL
[2021-10-19 04:59] LABS: Anion Gap 13 mmol/L (10-20); BUN (Urea Nitrogen) 36 mg/dL (8.4-25.7); Calc. Creatinine Clearance 38 mL/min (70-130); Calcium 7.9 mg/dL (7.8-10.44); Carbon Dioxide 29 mmol/L (23-31); Chloride 99 mmol/L (98-107); Glucose 130 mg/dL (83-110); Potassium 3.6 mmol/L (3.5-5.1); Sodium 137 mmol/L (136-145)
[2021-10-19] MEDS: Vancomycin HCl 1 GM in Sodium Chloride 0.9% 250 ML 250 ML IVPB SCH ×2 (06:45→07:22)
[2021-10-19] MEDS: Pantoprazole 40 MG VIAL IVP SCH (08:19)
[2021-10-19] MEDS: methylPREDNISolone Sod Succ 40 MG VIAL IVP SCH (08:21)
[2021-10-19] MEDS: Enoxaparin Sodium 40 MG/0.4 ML SYRINGE SC SCH (08:23)
[2021-10-19] MEDS ORDERED: Furosemide 20 MG/2 ML VIAL SLOW IVP SCH (09:00)
[2021-10-19] MEDS ORDERED: Potassium Chloride 20 MEQ TAB PO SCH (10:00)
[2021-10-19] MEDS: ALPRAZolam 0.25 MG TAB PO PRN (12:29)
[2021-10-19] MEDS: Acetaminophen 325 MG TAB PO PRN (12:30)
[2021-10-19] MEDS: Furosemide 20 MG/2 ML VIAL SLOW IVP SCH (13:21)
[2021-10-20 05:17] LABS: Anion Gap 11 mmol/L (10-20); BUN (Urea Nitrogen) 29 mg/dL (8.4-25.7); Calc. Creatinine Clearance 49 mL/min (70-130); Calcium 8.6 mg/dL (7.8-10.44); Carbon Dioxide 34 mmol/L (23-31); Chloride 95 mmol/L (98-107); Glucose 147 mg/dL (83-110); Potassium 3.6 mmol/L (3.5-5.1); Sodium 136 mmol/L (136-145)
[2021-10-20] MEDS ORDERED: Vancomycin HCl 1 GM in Sodium Chloride 0.9% 250 ML 250 ML IVPB SCH (06:00)
[2021-10-20] MEDS: Vancomycin HCl 1 GM in Sodium Chloride 0.9% 250 ML 250 ML IVPB SCH (06:30)
[2021-10-20] MEDS: Furosemide 20 MG/2 ML VIAL SLOW IVP SCH ×2 (06:31→15:06)
[2021-10-20] MEDS ORDERED: Potassium Chloride 20 MEQ TAB PO SCH (08:00)
[2021-10-20 09:01] LABS: #Lymphocytes 1.5 thou/uL (1.20-3.40); #Monocytes 0.6 thou/uL (0.11-0.59); #Neutrophils 4.6 thou/uL (1.40-6.50); %Basophils 0.5 % (0.0-1.0); %Eosinophils 0.4 % (0.0-10.0); %Monocytes 8.3 % (0.0-10.0); %Neutrophils 68.8 % (42.0-75.0); Hemoglobin 11.5 g/dL (14.0-18.0); Mean Corpuscular HGB CONC 33.4 g/dL (32.0-36.0); Mean Corpuscular Hemoglobin 30.9 pg (27.0-31.0); Mean Corpuscular Volume 92.6 fL (78.0-98.0); RBC Distribution Width 14.1 % (11.5-14.5); Red Blood Cell (RBC) Count 3.72 mill/uL (4.70-6.10); White Blood Cell (WBC) Count 6.7 thou/uL (4.8-10.8)
[2021-10-20] MEDS: Pantoprazole 40 MG VIAL IVP SCH (09:18)
[2021-10-20] MEDS: Enoxaparin Sodium 40 MG/0.4 ML SYRINGE SC SCH (09:18)
[2021-10-20] MEDS: methylPREDNISolone Sod Succ 40 MG VIAL IVP SCH (09:18)
[2021-10-20] MEDS: Lisinopril 2.5 MG TAB PO SCH (09:18)
[2021-10-20 10:11] LABS: MDiff Complete? YES; Mean Platelet Volume 8.6 fL (7.4-10.4); Ovalocytes SLIGHT = 2-5 cells (100X) (0-1/hpf); Platelet Count 110 thou/uL (130-400); Platelet Morphology Comment Appears Decreased; Polychromasia SLIGHT = 2-3 cells (100X) (0-2/hpf)
[2021-10-21] MEDS: ALPRAZolam 0.25 MG TAB PO PRN (00:08)
[2021-10-21 05:41] LABS: Vancomycin, Trough 12.4 ug/mL
[2021-10-21] MEDS ORDERED: VANCOMYCIN 1.25 GM/250 ML BAG 1.25 GM in Premix Bag 1 BAG IVPB SCH (06:00)
[2021-10-21] MEDS ORDERED: Vancomycin 1 GM in Sodium Chloride 0.9% 250 ML 250 ML IVPB SCH (06:00)
[2021-10-21] MEDS: Furosemide 20 MG/2 ML VIAL SLOW IVP SCH (06:13)
[2021-10-21 06:32] LABS: Anion Gap 13 mmol/L (10-20); BUN (Urea Nitrogen) 30 mg/dL (8.4-25.7); Calc. Creatinine Clearance 56 mL/min (70-130); Calcium 8.7 mg/dL (7.8-10.44); Carbon Dioxide 35 mmol/L (23-31); Chloride 91 mmol/L (98-107); Glucose 104 mg/dL (83-110); Potassium 3.5 mmol/L (3.5-5.1); Sodium 135 mmol/L (136-145)
[2021-10-21] MEDS: predniSONE 20 MG TAB PO SCH (09:13)
[2021-10-21] MEDS: Enoxaparin Sodium 40 MG/0.4 ML SYRINGE SC SCH (09:13)
[2021-10-21] MEDS: Lisinopril 2.5 MG TAB PO SCH (09:13)
[2021-10-21] MEDS ORDERED: Aspirin 81 mg Enteric Coated Tablet PO SCH (09:15)
[2021-10-21] MEDS ORDERED: Potassium Chloride 20 MEQ TAB PO SCH (12:00)
[2021-10-22] MEDS: ALPRAZolam 0.25 MG TAB PO PRN (01:58)
[2021-10-22] MEDS: predniSONE 20 MG TAB PO SCH (08:59)
[2021-10-22] MEDS: Aspirin 81 mg Enteric Coated Tablet PO SCH (08:59)
[2021-10-22] MEDS: Lisinopril 2.5 MG TAB PO SCH (08:59)
[2021-10-22] MEDS: Enoxaparin Sodium 40 MG/0.4 ML SYRINGE SC SCH (09:00)
[2021-10-22] MEDS ORDERED: Furosemide 20 MG/2 ML VIAL SLOW IVP SCH (09:00)
[2021-10-22] MEDS ORDERED: Potassium Chloride 20 MEQ TAB PO SCH (09:30)
[2021-10-22 14:45] LABS: #Lymphocytes 0.6 thou/uL (1.20-3.40); #Monocytes 0.2 thou/uL (0.11-0.59); #Neutrophils 5.2 thou/uL (1.40-6.50); %Basophils 0.1 % (0.0-1.0); %Eosinophils 0.5 % (0.0-10.0); %Lymphocytes 10.4 % (21.0-51.0); %Monocytes 3.5 % (0.0-10.0); %Neutrophils 85.5 % (42.0-75.0); Hemoglobin 11.9 g/dL (14.0-18.0); Mean Corpuscular HGB CONC 33.5 g/dL (32.0-36.0); Mean Corpuscular Hemoglobin 30.9 pg (27.0-31.0); Mean Corpuscular Volume 92.1 fL (78.0-98.0); Mean Platelet Volume 8.6 fL (7.4-10.4); Platelet Count 137 thou/uL (130-400); Red Blood Cell (RBC) Count 3.87 mill/uL (4.70-6.10)
[2021-10-22 15:02] LABS: Anion Gap 14 mmol/L (10-20); BUN (Urea Nitrogen) 30 mg/dL (8.4-25.7); Calc. Creatinine Clearance 44 mL/min (70-130); Calcium 8.5 mg/dL (7.8-10.44); Carbon Dioxide 31 mmol/L (23-31); Chloride 93 mmol/L (98-107); Glucose 168 mg/dL (83-110); Potassium 4.3 mmol/L (3.5-5.1); Sodium 134 mmol/L (136-145)
[2021-10-22] MEDS ORDERED: Atorvastatin Calcium 40 MG TAB PO SCH (21:00)
[2021-10-23] MEDS ORDERED: predniSONE 5 MG TAB PO SCH (08:00)
[2021-10-23] MEDS ORDERED: Potassium Chloride 20 MEQ TAB PO SCH (08:00)
[2021-10-23] MEDS ORDERED: Furosemide 40 MG TAB PO SCH (09:00)
[2021-10-23] MEDS ORDERED: Furosemide 20 MG TAB PO SCH ×2 (09:00)
[2021-10-23] MEDS: Enoxaparin Sodium 40 MG/0.4 ML SYRINGE SC SCH (09:25)
[2021-10-23] MEDS: Lisinopril 2.5 MG TAB PO SCH (09:26)
[2021-10-23] MEDS: Aspirin 81 mg Enteric Coated Tablet PO SCH (09:26)
[2021-10-23 12:39] VITALS: BP 124/68; TEMP 97.7
== END 2021-10-23 16:36 | disposition home or self-care (01) | DRG 871 ==
LOC: ERS 23:01 → CCU 10-17 00:55 → 2NO 10-19 16:30
PROVIDERS: ADMIT Student in an Organized Health Care Education/Training Program; ATTEND Internal Medicine
PROC: 0BH17EZ Insertion of Endotracheal Airway into Trachea, Via Natural or Artificial Opening (ICD-10-PCS; principal; 2021-10-17)
PROC: 06HY33Z Insertion of Infusion Device into Lower Vein, Percutaneous Approach (ICD-10-PCS; 2021-10-17)
PROC: 3E033XZ Introduction of Vasopressor into Peripheral Vein, Percutaneous Approach (ICD-10-PCS; 2021-10-17)
PROC: 0D9670Z Drainage of Stomach with Drainage Device, Via Natural or Artificial Opening (ICD-10-PCS; 2021-10-17)
PROC: 5A1945Z Respiratory Ventilation, 24-96 Consecutive Hours (ICD-10-PCS; 2021-10-17)
DX: A41.9 Sepsis, unspecified organism (principal); I46.9 Cardiac arrest, cause unspecified; I50.43 Acute on chronic combined systolic (congestive) and diastolic (congestive) heart failure; J96.21 Acute and chronic respiratory failure with hypoxia; J18.9 Pneumonia, unspecified organism; I21.A1 Myocardial infarction type 2; J44.1 Chronic obstructive pulmonary disease with (acute) exacerbation; I47.2 Ventricular tachycardia; I13.0 Hypertensive heart and chronic kidney disease with heart failure and stage 1 through stage 4 chronic kidney disease, or unspecified chronic kidney disease; N17.9 Acute kidney failure, unspecified; I25.810 Atherosclerosis of coronary artery bypass graft(s) without angina pectoris; J44.0 Chronic obstructive pulmonary disease with (acute) lower respiratory infection; Z20.822 Contact with and (suspected) exposure to COVID-19; F17.210 Nicotine dependence, cigarettes, uncomplicated; F10.10 Alcohol abuse, uncomplicated; N18.30 Chronic kidney disease, stage 3 unspecified; E78.5 Hyperlipidemia, unspecified; K21.9 Gastro-esophageal reflux disease without esophagitis; I25.10 Atherosclerotic heart disease of native coronary artery without angina pectoris; Z78.1 Physical restraint status; Z95.1 Presence of aortocoronary bypass graft; I25.2 Old myocardial infarction; Z79.82 Long term (current) use of aspirin; Z79.51 Long term (current) use of inhaled steroids; Z79.52 Long term (current) use of systemic steroids; Z95.5 Presence of coronary angioplasty implant and graft; Z91.14 Patient's other noncompliance with medication regimen; Z91.11 Patient's noncompliance with dietary regimen
CPT/HCPCS: 31500; 36415; 36416; 36600; 71045; 80048; 80053; 80202; 81001; 82553; 82805; 83605; 83880; 84484; 85025; 87040; 87086; 93005; 93798; 94002; 94003; 94640; C9113; J0171; J0282; J1650; J1940; J1956; J2060; J2250; J2270; J2704; J2920; J2930; J3010; J3370; J3475; J3490; J7050; J7512; J7620; U0002

== ENCOUNTER 2021-10-30 21:00 | Inpatient (IN) | payer OTHER ==
[~2021-10-30 21:00] MED LIST: Iopamidol-370 76% 500 ML 1 ML ONE
[2021-10-30] MEDS ORDERED: Dexamethasone 10 MG/ML VIAL ONE (21:13)
[2021-10-30] MEDS ORDERED: Magnesium 2 GM/50 ML BAG (IN WATER) ONE (21:13)
[2021-10-30 21:16] LABS: Actual Bicarbonate (HCO3a) 19.3 mEq/L (22-28); Analyzer IN Cardio ER; Base Excess (BEa) -4.7 mEq/L (-2.0 to +3.0); CO2 Tension 32.8 mmHg (35.0-45.0); Calcium, Ionized (arterial) 1.02 mmol/L (1.12-1.30); Carboxyhemoglobin (COHb) 0.6 gm% (0.0-3.0); Hemoglobin (Hb) 14.5 g/dL (14.0-18.0); O2 Tension (PaO2), arterial 60.3 mmHg (> 70.0); Potassium - ABG Lab 3.53 mmol/L (3.70-5.30); pH, Arterial 7.39 (7.35-7.45)
[2021-10-30 21:34] LABS: #Monocytes 0.3 thou/uL (0.11-0.59); #Neutrophils 6.8 thou/uL (1.40-6.50); %Basophils 0.2 % (0.0-1.0); %Eosinophils 0.3 % (0.0-10.0); %Lymphocytes 12.7 % (21.0-51.0); %Monocytes 4.1 % (0.0-10.0); %Neutrophils 82.7 % (42.0-75.0); Mean Corpuscular HGB CONC 33.9 g/dL (32.0-36.0); Mean Corpuscular Volume 88.4 fL (78.0-98.0); Mean Platelet Volume 8.5 fL (7.4-10.4); Platelet Count 138 thou/uL (130-400); RBC Distribution Width 14.8 % (11.5-14.5); Red Blood Cell (RBC) Count 4.67 mill/uL (4.70-6.10); White Blood Cell (WBC) Count 8.2 thou/uL (4.8-10.8)
[2021-10-30 21:54] LABS: ALT (SGPT) 50 U/L (8-55); AST (SGOT) 56 U/L (5-34); Albumin 3.1 g/dL (3.4-4.8); Alkaline Phosphatase 46 U/L (40-110); Anion Gap 18 mmol/L (10-20); BUN (Urea Nitrogen) 32 mg/dL (8.4-25.7); Bilirubin, Total 0.9 mg/dL (0.2-1.2); CK (CPK) 75 U/L (30-200); Calc. Creatinine Clearance 0 mL/min (70-130); Calcium 7.4 mg/dL (7.8-10.44); Carbon Dioxide 20 mmol/L (23-31); Chloride 97 mmol/L (98-107); Globulin 2.3 g/dL (2.4-3.5); Glucose 134 mg/dL (83-110); Lipase 31 U/L (8-78); Potassium 3.8 mmol/L (3.5-5.1); Protein, Total 5.4 g/dL (5.8-8.1); Sodium 131 mmol/L (136-145)
[2021-10-30 22:15] LABS: CKMB 0.7 ng/mL (0-6.6)
[2021-10-30] MEDS ORDERED: Aspirin Chewable 81 MG TAB ONE ×2 (23:02→23:03)
[2021-10-30 23:26] LABS: Puncture Site RRA
[2021-10-31] MEDS ORDERED: Vancomycin 1 GM/200 ML BAG ONE (00:09)
[2021-10-31] MEDS ORDERED: Cefepime 2 GM VIAL ONE (00:09)
[2021-10-31 00:45] LABS: Lactic Acid 1.5 mmol/L (0.5-2.2)
[2021-10-31 01:44] LABS: Bacteria/HPF None Seen HPF (None Seen); Bilirubin Negative (Negative); Blood, Urine Trace (Negative); Clarity Clear (Clear); Glucose, Urine (Dipstick) Normal (Negative); Ketone, Urine Negative (Negative); Leukocyte Negative Leu/uL (Negative); Nitrite Negative (Negative); Protein, Urine (Dipstick) 70 mg/dL (Neg-Trace); RBC/HPF 0-3 HPF (0-3); Specific Gravity, Urine 1.021 (1.002-1.036); Squamous Epithelial 0-3 HPF (0-3); Urobilinogen Normal mg/dL (Less than 2); WBC/HPF 0-3 HPF (0-3); pH, Urine 5.5 (5.0-9.0)
[2021-10-31] MEDS ORDERED: Acetaminophen 650 MG Suppository PR PRN ×2 (02:28→04:04)
[2021-10-31] MEDS ORDERED: Acetaminophen 325 MG TAB PO PRN (02:28)
[2021-10-31] MEDS ORDERED: Ondansetron PF 4 MG/2 ML Vial IVP PRN ×2 (02:28→04:04)
[2021-10-31] MEDS ORDERED: Ondansetron ODT 4 MG TAB PO PRN ×2 (02:28→04:04)
[2021-10-31] MEDS ORDERED: Enoxaparin Sodium 30 MG/0.3 ML SYRINGE SC SCH (02:30)
[2021-10-31] MEDS ORDERED: Electrolyte Replacement Protocol 1 EACH FS PRN (02:45)
[2021-10-31 02:48] LABS: SARS-CoV-2 NAA Rapid Test DETECTED (NotDetected)
[2021-10-31] MEDS ORDERED: Furosemide 40 MG/4 ML VIAL SLOW IVP SCH (03:00)
[2021-10-31] MEDS ORDERED: Enoxaparin Sodium 80 MG/0.8 ML SYRINGE SC SCH (04:04)
[2021-10-31] MEDS ORDERED: Amiodarone 150 MG, Admixture Fee 1 EACH in Dextrose 5% in Water 100 ML IVPB SCH (04:30)
[2021-10-31] MEDS ORDERED: Amiodarone 450 MG in Dextrose 5% in Water 250 ML IVPB SCH (04:45)
[2021-10-31 05:18] LABS: Anion Gap 15 mmol/L (10-20); BUN (Urea Nitrogen) 33 mg/dL (8.4-25.7); Calc. Creatinine Clearance 0 mL/min (70-130); Calcium 7.4 mg/dL (7.8-10.44); Carbon Dioxide 19 mmol/L (23-31); Chloride 97 mmol/L (98-107); Glucose 134 mg/dL (83-110); Potassium 3.8 mmol/L (3.5-5.1); Sodium 127 mmol/L (136-145)
[2021-10-31 05:21] LABS: Troponin I 0.102 ng/mL (< 0.028)
[2021-10-31] MEDS ORDERED: Furosemide 40 MG/4 ML VIAL ONE (05:22)
[2021-10-31 06:46] LABS: #Lymphocytes 0.5 thou/uL (1.20-3.40); #Monocytes 0.2 thou/uL (0.11-0.59); %Basophils 0.2 % (0.0-1.0); %Eosinophils 0.2 % (0.0-10.0); %Lymphocytes 7.1 % (21.0-51.0); %Monocytes 2.8 % (0.0-10.0); %Neutrophils 89.8 % (42.0-75.0); Anisocytosis SLIGHT = 6-15 cells (100X) (0-5/hpf); Elliptocytes SLIGHT = 2-5 cells (100X) (0-1/hpf); Hemoglobin 13.1 g/dL (14.0-18.0); MDiff Complete? YES; Mean Corpuscular HGB CONC 32.8 g/dL (32.0-36.0); Mean Corpuscular Hemoglobin 29.3 pg (27.0-31.0); Mean Corpuscular Volume 89.1 fL (78.0-98.0); Mean Platelet Volume 9.3 fL (7.4-10.4); Platelet Count 113 thou/uL (130-400); Platelet Morphology Comment Appears Decreased; Red Blood Cell (RBC) Count 4.46 mill/uL (4.70-6.10); White Blood Cell (WBC) Count 6.6 thou/uL (4.8-10.8)
[2021-10-31] MEDS ORDERED: Albuterol 200 PUFF (6.7GM INHALER) INH PRN (08:00)
[2021-10-31] MEDS ORDERED: Enoxaparin Sodium 40 MG/0.4 ML SYRINGE ONE (08:29)
[2021-10-31] MEDS ORDERED: Enoxaparin Sodium 30 MG/0.3 ML SYRINGE ONE (08:29)
[2021-10-31] MEDS: Enoxaparin Sodium 80 MG/0.8 ML SYRINGE SC SCH (08:52)
[2021-10-31] MEDS ORDERED: methylPREDNISolone Sod Succ 40 MG VIAL IVP SCH (09:00)
[2021-10-31] MEDS: Furosemide 40 MG/4 ML VIAL SLOW IVP SCH (12:56)
[2021-10-31] MEDS: Zinc Sulfate 220 MG CAP PO SCH (12:56)
[2021-10-31] MEDS: Ascorbic Acid 500 mg Chewable Tablet PO SCH (12:56)
[2021-10-31] MEDS: Cholecalciferol (Vitamin D3) 400 UNITS TAB PO SCH (12:56)
[2021-10-31] MEDS: Pantoprazole 40 MG VIAL IVP SCH (12:56)
[2021-10-31] MEDS: Acetaminophen 325 MG TAB PO PRN (14:03)
[2021-10-31] MEDS: Dexamethasone 10 MG in Sodium Chloride 0.9% 50 ML IVPB SCH (17:16)
[2021-10-31] MEDS: Albuterol 200 PUFF (6.7GM INHALER) INH SCH ×2 (18:22→20:16)
[2021-10-31] MEDS: Atorvastatin Calcium 40 MG TAB PO SCH (20:17)
[2021-11-01] MEDS: Lorazepam 0.5 MG TAB PO PRN ×2 (00:14→13:26)
[2021-11-01] MEDS: Albuterol 200 PUFF (6.7GM INHALER) INH SCH ×5 (01:19→23:40)
[2021-11-01] MEDS: Enoxaparin Sodium 80 MG/0.8 ML SYRINGE SC SCH (05:04)
[2021-11-01 05:18] LABS: ALT (SGPT) 42 U/L (8-55); AST (SGOT) 40 U/L (5-34); Albumin 3.1 g/dL (3.4-4.8); Alkaline Phosphatase 49 U/L (40-110); Anion Gap 15 mmol/L (10-20); BUN (Urea Nitrogen) 39 mg/dL (8.4-25.7); Bilirubin, Total 0.6 mg/dL (0.2-1.2); CRP (Inflammatory) 2.47 mg/dL (= or < 0.5); Calc. Creatinine Clearance 0 mL/min (70-130); Carbon Dioxide 21 mmol/L (23-31); Chloride 95 mmol/L (98-107); Globulin 2.6 g/dL (2.4-3.5); Glucose 158 mg/dL (83-110); Magnesium 2.2 mg/dL (1.6-2.6); Phosphorus 4.3 mg/dL (2.3-4.7); Potassium 3.8 mmol/L (3.5-5.1); Protein, Total 5.7 g/dL (5.8-8.1); Sodium 127 mmol/L (136-145)
[2021-11-01] MEDS ORDERED: VANC IVPB PRN (09:31)
[2021-11-01] MEDS ORDERED: CEFEPIME IVPB PRN (09:31)
[2021-11-01] MEDS: Zinc Sulfate 220 MG CAP PO SCH (09:36)
[2021-11-01] MEDS: Ascorbic Acid 500 mg Chewable Tablet PO SCH (09:36)
[2021-11-01] MEDS: Metoprolol Tartrate 25 MG TAB PO SCH ×2 (09:36→20:23)
[2021-11-01] MEDS: Furosemide 40 MG/4 ML VIAL SLOW IVP SCH (09:36)
[2021-11-01] MEDS: Cholecalciferol (Vitamin D3) 400 UNITS TAB PO SCH (09:36)
[2021-11-01] MEDS: Pantoprazole 40 MG VIAL IVP SCH (11:29)
[2021-11-01] MEDS ORDERED: Cefepime 2 GM in Sodium Chloride 0.9% 100 ML IVPB SCH (13:00)
[2021-11-01] MEDS ORDERED: Vancomycin 1 GM in Premix Bag 1 BAG IVPB SCH (13:00)
[2021-11-01] MEDS: Dexamethasone 10 MG in Sodium Chloride 0.9% 50 ML IVPB SCH (15:25)
[2021-11-01] MEDS: Mometasone 200 MCG/Formoterol 5 MCG 120 PUFF INHALER INH SCH (19:54)
[2021-11-01] MEDS: Atorvastatin Calcium 40 MG TAB PO SCH (20:23)
[2021-11-02] MEDS: Lorazepam 0.5 MG TAB PO PRN ×3 (00:29→20:20)
[2021-11-02] MEDS: Albuterol 200 PUFF (6.7GM INHALER) INH SCH ×6 (03:00→19:33)
[2021-11-02 04:16] LABS: #Lymphocytes 0.6 thou/uL (1.20-3.40); #Monocytes 0.4 thou/uL (0.11-0.59); #Neutrophils 6.7 thou/uL (1.40-6.50); %Basophils 0.1 % (0.0-1.0); %Eosinophils 0.1 % (0.0-10.0); %Lymphocytes 7.4 % (21.0-51.0); %Monocytes 4.9 % (0.0-10.0); %Neutrophils 87.5 % (42.0-75.0); Hemoglobin 13.3 g/dL (14.0-18.0); Mean Corpuscular HGB CONC 33.1 g/dL (32.0-36.0); Mean Corpuscular Hemoglobin 29.1 pg (27.0-31.0); Mean Corpuscular Volume 87.7 fL (78.0-98.0); Mean Platelet Volume 10.1 fL (7.4-10.4); Platelet Count 129 thou/uL (130-400); RBC Distribution Width 14.7 % (11.5-14.5); Red Blood Cell (RBC) Count 4.57 mill/uL (4.70-6.10); White Blood Cell (WBC) Count 7.6 thou/uL (4.8-10.8)
[2021-11-02 04:36] LABS: Anion Gap 17 mmol/L (10-20); BUN (Urea Nitrogen) 37 mg/dL (8.4-25.7); Calc. Creatinine Clearance 34 mL/min (70-130); Calcium 7.7 mg/dL (7.8-10.44); Carbon Dioxide 20 mmol/L (23-31); Chloride 95 mmol/L (98-107); Glucose 133 mg/dL (83-110); Sodium 128 mmol/L (136-145)
[2021-11-02] MEDS: Mometasone 200 MCG/Formoterol 5 MCG 120 PUFF INHALER INH SCH ×3 (06:01→19:33)
[2021-11-02] MEDS: Zinc Sulfate 220 MG CAP PO SCH (08:42)
[2021-11-02] MEDS: Ascorbic Acid 500 mg Chewable Tablet PO SCH (08:42)
[2021-11-02] MEDS: Cholecalciferol (Vitamin D3) 400 UNITS TAB PO SCH (08:42)
[2021-11-02] MEDS: Enoxaparin Sodium 30 MG/0.3 ML SYRINGE SC SCH (08:42)
[2021-11-02] MEDS: Aspirin 81 mg Enteric Coated Tablet PO SCH (08:42)
[2021-11-02] MEDS: Furosemide 40 MG/4 ML VIAL SLOW IVP SCH (08:43)
[2021-11-02] MEDS: Metoprolol Tartrate 25 MG TAB PO SCH ×2 (08:44→20:20)
[2021-11-02] MEDS: Dexamethasone 10 MG in Sodium Chloride 0.9% 50 ML IVPB SCH (10:48)
[2021-11-02 12:41] LABS: Vancomycin, Trough 13.1 ug/mL
[2021-11-02] MEDS ORDERED: Vancomycin 1 GM in Premix Bag 1 BAG IVPB SCH (13:00)
[2021-11-02] MEDS: Cefepime 2 GM in Sodium Chloride 0.9% 100 ML IVPB SCH ×2 (14:49→20:21)
[2021-11-02] MEDS: Atorvastatin Calcium 40 MG TAB PO SCH (20:20)
[2021-11-02] MEDS: Benzonatate 100 MG CAP PO PRN (20:20)
[2021-11-03] MEDS: Albuterol 200 PUFF (6.7GM INHALER) INH SCH ×5 (03:04→22:32)
[2021-11-03] MEDS: Enoxaparin Sodium 30 MG/0.3 ML SYRINGE SC SCH (10:30)
[2021-11-03] MEDS: Aspirin 81 mg Enteric Coated Tablet PO SCH (10:31)
[2021-11-03] MEDS: Metoprolol Tartrate 25 MG TAB PO SCH ×2 (10:31→20:18)
[2021-11-03] MEDS: Ascorbic Acid 500 mg Chewable Tablet PO SCH (10:31)
[2021-11-03] MEDS: Zinc Sulfate 220 MG CAP PO SCH (10:32)
[2021-11-03] MEDS: Furosemide 40 MG/4 ML VIAL SLOW IVP SCH (10:32)
[2021-11-03] MEDS: Cholecalciferol (Vitamin D3) 400 UNITS TAB PO SCH (10:32)
[2021-11-03] MEDS: Cefepime 2 GM in Sodium Chloride 0.9% 100 ML IVPB SCH ×2 (10:32→20:18)
[2021-11-03] MEDS: Mometasone 200 MCG/Formoterol 5 MCG 120 PUFF INHALER INH SCH (10:33)
[2021-11-03] MEDS: Lorazepam 0.5 MG TAB PO PRN ×2 (10:42→21:29)
[2021-11-03] MEDS: Dexamethasone 10 MG in Sodium Chloride 0.9% 50 ML IVPB SCH (10:49)
[2021-11-03] MEDS: VANCOMYCIN 1.25 GM/250 ML BAG 1.25 GM in Premix Bag 1 BAG IVPB SCH (13:09)
[2021-11-03] MEDS: Atorvastatin Calcium 40 MG TAB PO SCH (20:18)
[2021-11-04] MEDS: Albuterol 200 PUFF (6.7GM INHALER) INH SCH ×7 (02:33→21:51)
[2021-11-04 04:25] LABS: Hemoglobin 13.9 g/dL (14.0-18.0); Mean Corpuscular HGB CONC 33.1 g/dL (32.0-36.0); Mean Corpuscular Hemoglobin 29.2 pg (27.0-31.0); Mean Corpuscular Volume 88.2 fL (78.0-98.0); Mean Platelet Volume 10.5 fL (7.4-10.4); Platelet Count 105 thou/uL (130-400); RBC Distribution Width 14.7 % (11.5-14.5); Red Blood Cell (RBC) Count 4.76 mill/uL (4.70-6.10); White Blood Cell (WBC) Count 9.7 thou/uL (4.8-10.8)
[2021-11-04] MEDS: Mometasone 200 MCG/Formoterol 5 MCG 120 PUFF INHALER INH SCH ×3 (04:34→17:58)
[2021-11-04 04:38] LABS: #Lymphocytes 0.5 thou/uL (1.20-3.40); #Monocytes 0.4 thou/uL (0.11-0.59); #Neutrophils 8.9 thou/uL (1.40-6.50); %Eosinophils 0.3 % (0.0-10.0); %Monocytes 3.8 % (0.0-10.0); MDiff Complete? YES
[2021-11-04 04:44] LABS: Anion Gap 18 mmol/L (10-20); BUN (Urea Nitrogen) 37 mg/dL (8.4-25.7); Calc. Creatinine Clearance 38 mL/min (70-130); Carbon Dioxide 19 mmol/L (23-31); Chloride 99 mmol/L (98-107); Glucose 144 mg/dL (83-110); Magnesium 1.8 mg/dL (1.6-2.6); Sodium 132 mmol/L (136-145)
[2021-11-04] MEDS: Furosemide 40 MG TAB PO SCH (06:33)
[2021-11-04] MEDS ORDERED: Magnesium 2 GM/50 ML 2 GM in Premix Bag 1 BAG IVPB SCH (07:00)
[2021-11-04] MEDS: Lorazepam 0.5 MG TAB PO PRN ×2 (08:44→17:58)
[2021-11-04] MEDS: Dexamethasone 10 MG in Sodium Chloride 0.9% 50 ML IVPB SCH (08:44)
[2021-11-04] MEDS: Enoxaparin Sodium 30 MG/0.3 ML SYRINGE SC SCH (08:44)
[2021-11-04] MEDS: Cefepime 2 GM in Sodium Chloride 0.9% 100 ML IVPB SCH (08:45)
[2021-11-04] MEDS: Aspirin 81 mg Enteric Coated Tablet PO SCH (08:45)
[2021-11-04] MEDS: Ascorbic Acid 500 mg Chewable Tablet PO SCH (08:45)
[2021-11-04] MEDS: Cholecalciferol (Vitamin D3) 400 UNITS TAB PO SCH (08:45)
[2021-11-04] MEDS: Metoprolol Tartrate 25 MG TAB PO SCH ×2 (08:45→21:50)
[2021-11-04] MEDS: Zinc Sulfate 220 MG CAP PO SCH (08:45)
[2021-11-04 13:03] LABS: Vancomycin, Trough 20.9 ug/mL
[2021-11-04] MEDS: VANCOMYCIN 1.25 GM/250 ML BAG 1.25 GM in Premix Bag 1 BAG IVPB SCH (14:39)
[2021-11-04] MEDS: Atorvastatin Calcium 40 MG TAB PO SCH (21:50)
[2021-11-05] MEDS: Albuterol 200 PUFF (6.7GM INHALER) INH SCH ×6 (02:37→22:33)
[2021-11-05] MEDS: Lorazepam 0.5 MG TAB PO PRN ×3 (06:09→21:46)
[2021-11-05] MEDS: Mometasone 200 MCG/Formoterol 5 MCG 120 PUFF INHALER INH SCH ×2 (06:09→21:40)
[2021-11-05] MEDS: Furosemide 40 MG TAB PO SCH (09:24)
[2021-11-05] MEDS: Zinc Sulfate 220 MG CAP PO SCH (09:24)
[2021-11-05] MEDS: Enoxaparin Sodium 40 MG/0.4 ML SYRINGE SC SCH (09:24)
[2021-11-05] MEDS: Cholecalciferol (Vitamin D3) 400 UNITS TAB PO SCH (09:24)
[2021-11-05] MEDS: Aspirin 81 mg Enteric Coated Tablet PO SCH (09:24)
[2021-11-05] MEDS: Dexamethasone 4 mg/ml Vial SLOW IVP SCH (09:24)
[2021-11-05] MEDS: Ascorbic Acid 500 mg Chewable Tablet PO SCH (09:24)
[2021-11-05] MEDS: Metoprolol Tartrate 25 MG TAB PO SCH ×2 (09:24→21:38)
[2021-11-05 13:02] LABS: #Lymphocytes 0.3 thou/uL (1.20-3.40); #Monocytes 0.4 thou/uL (0.11-0.59); #Neutrophils 10.6 thou/uL (1.40-6.50); %Eosinophils 0.1 % (0.0-10.0); %Lymphocytes 2.5 % (21.0-51.0); %Monocytes 3.2 % (0.0-10.0); %Neutrophils 94.2 % (42.0-75.0); Hemoglobin 13.4 g/dL (14.0-18.0); Mean Corpuscular HGB CONC 32.6 g/dL (32.0-36.0); Mean Corpuscular Hemoglobin 29.1 pg (27.0-31.0); Mean Corpuscular Volume 89.3 fL (78.0-98.0); Mean Platelet Volume 10.9 fL (7.4-10.4); Platelet Count 117 thou/uL (130-400); RBC Distribution Width 14.7 % (11.5-14.5); White Blood Cell (WBC) Count 11.2 thou/uL (4.8-10.8)
[2021-11-05 13:25] LABS: Anion Gap 15 mmol/L (10-20); BUN (Urea Nitrogen) 37 mg/dL (8.4-25.7); Calc. Creatinine Clearance 48 mL/min (70-130); Calcium 7.9 mg/dL (7.8-10.44); Carbon Dioxide 24 mmol/L (23-31); Chloride 99 mmol/L (98-107); Glucose 247 mg/dL (83-110); Sodium 134 mmol/L (136-145)
[2021-11-05] MEDS ORDERED: Vancomycin 1 GM in Premix Bag 1 BAG IVPB SCH (14:00)
[2021-11-05] MEDS: Atorvastatin Calcium 40 MG TAB PO SCH (21:38)
[2021-11-06] MEDS: Albuterol 200 PUFF (6.7GM INHALER) INH SCH ×6 (02:28→22:28)
[2021-11-06] MEDS: Acetaminophen 325 MG TAB PO PRN (02:29)
[2021-11-06] MEDS: Benzonatate 100 MG CAP PO PRN (02:30)
[2021-11-06] MEDS: Mometasone 200 MCG/Formoterol 5 MCG 120 PUFF INHALER INH SCH ×2 (06:30→16:16)
[2021-11-06] MEDS: Cholecalciferol (Vitamin D3) 400 UNITS TAB PO SCH (10:23)
[2021-11-06] MEDS: Metoprolol Tartrate 25 MG TAB PO SCH ×2 (10:24→22:28)
[2021-11-06] MEDS: Furosemide 40 MG TAB PO SCH (10:24)
[2021-11-06] MEDS: Ascorbic Acid 500 mg Chewable Tablet PO SCH (10:25)
[2021-11-06] MEDS: Aspirin 81 mg Enteric Coated Tablet PO SCH (10:25)
[2021-11-06] MEDS: Zinc Sulfate 220 MG CAP PO SCH (10:25)
[2021-11-06] MEDS: Enoxaparin Sodium 40 MG/0.4 ML SYRINGE SC SCH (10:26)
[2021-11-06] MEDS: Dexamethasone 4 mg/ml Vial SLOW IVP SCH (10:27)
[2021-11-06] MEDS: Lorazepam 0.5 MG TAB PO PRN ×3 (10:33→22:28)
[2021-11-06] MEDS: Atorvastatin Calcium 40 MG TAB PO SCH (22:28)
[2021-11-07] MEDS: Albuterol 200 PUFF (6.7GM INHALER) INH SCH ×6 (02:24→22:58)
[2021-11-07 03:43] LABS: #Lymphocytes 0.5 thou/uL (1.20-3.40); #Monocytes 0.5 thou/uL (0.11-0.59); #Neutrophils 8.3 thou/uL (1.40-6.50); %Basophils 0.1 % (0.0-1.0); %Eosinophils 0.2 % (0.0-10.0); %Lymphocytes 4.9 % (21.0-51.0); %Monocytes 5.8 % (0.0-10.0); %Neutrophils 88.9 % (42.0-75.0); Mean Corpuscular Hemoglobin 28.6 pg (27.0-31.0); Mean Corpuscular Volume 89.5 fL (78.0-98.0); Mean Platelet Volume 9.7 fL (7.4-10.4); Platelet Count 129 thou/uL (130-400); RBC Distribution Width 14.7 % (11.5-14.5); White Blood Cell (WBC) Count 9.3 thou/uL (4.8-10.8)
[2021-11-07 03:59] LABS: Anion Gap 13 mmol/L (10-20); BUN (Urea Nitrogen) 36 mg/dL (8.4-25.7); Calc. Creatinine Clearance 41 mL/min (70-130); Carbon Dioxide 28 mmol/L (23-31); Chloride 101 mmol/L (98-107); Glucose 125 mg/dL (83-110); Sodium 138 mmol/L (136-145)
[2021-11-07] MEDS: Mometasone 200 MCG/Formoterol 5 MCG 120 PUFF INHALER INH SCH ×2 (07:28→18:02)
[2021-11-07] MEDS: Dexamethasone 4 MG TAB PO SCH (10:23)
[2021-11-07] MEDS: Lorazepam 0.5 MG TAB PO PRN ×2 (10:23→19:52)
[2021-11-07] MEDS: Ascorbic Acid 500 mg Chewable Tablet PO SCH (10:23)
[2021-11-07] MEDS: Cholecalciferol (Vitamin D3) 400 UNITS TAB PO SCH (10:23)
[2021-11-07] MEDS: Aspirin 81 mg Enteric Coated Tablet PO SCH (10:23)
[2021-11-07] MEDS: Enoxaparin Sodium 40 MG/0.4 ML SYRINGE SC SCH (10:24)
[2021-11-07] MEDS: Metoprolol Tartrate 25 MG TAB PO SCH ×2 (10:24→19:53)
[2021-11-07] MEDS: Furosemide 40 MG TAB PO SCH (10:24)
[2021-11-07] MEDS: Zinc Sulfate 220 MG CAP PO SCH (10:30)
[2021-11-07 15:00] LABS: Magnesium 1.8 mg/dL (1.6-2.6)
[2021-11-07] MEDS ORDERED: Magnesium 2 GM/50 ML 2 GM in Premix Bag 1 BAG IVPB SCH (18:45)
[2021-11-07] MEDS: Atorvastatin Calcium 40 MG TAB PO SCH (19:53)
[2021-11-08] MEDS: Albuterol 200 PUFF (6.7GM INHALER) INH SCH ×5 (03:01→18:02)
[2021-11-08] MEDS: Lorazepam 0.5 MG TAB PO PRN ×3 (03:06→20:38)
[2021-11-08 04:33] LABS: #Lymphocytes 0.6 thou/uL (1.20-3.40); #Monocytes 0.5 thou/uL (0.11-0.59); #Neutrophils 7.2 thou/uL (1.40-6.50); %Eosinophils 0.3 % (0.0-10.0); %Lymphocytes 6.6 % (21.0-51.0); %Monocytes 6.5 % (0.0-10.0); %Neutrophils 86.5 % (42.0-75.0); Hemoglobin 13.5 g/dL (14.0-18.0); Mean Corpuscular HGB CONC 32.5 g/dL (32.0-36.0); Mean Corpuscular Volume 89.2 fL (78.0-98.0); Mean Platelet Volume 9.8 fL (7.4-10.4); Platelet Count 141 thou/uL (130-400); Red Blood Cell (RBC) Count 4.66 mill/uL (4.70-6.10); White Blood Cell (WBC) Count 8.3 thou/uL (4.8-10.8)
[2021-11-08 04:54] LABS: Anion Gap 12 mmol/L (10-20); BUN (Urea Nitrogen) 37 mg/dL (8.4-25.7); Calc. Creatinine Clearance 37 mL/min (70-130); Carbon Dioxide 29 mmol/L (23-31); Chloride 97 mmol/L (98-107); Glucose 108 mg/dL (83-110); Potassium 3.6 mmol/L (3.5-5.1); Sodium 134 mmol/L (136-145)
[2021-11-08] MEDS: Mometasone 200 MCG/Formoterol 5 MCG 120 PUFF INHALER INH SCH ×2 (10:20→18:01)
[2021-11-08] MEDS: Zinc Sulfate 220 MG CAP PO SCH (10:43)
[2021-11-08] MEDS: Aspirin 81 mg Enteric Coated Tablet PO SCH (10:43)
[2021-11-08] MEDS: Metoprolol Tartrate 25 MG TAB PO SCH ×2 (10:43→20:38)
[2021-11-08] MEDS: Dexamethasone 4 MG TAB PO SCH (10:44)
[2021-11-08] MEDS: Furosemide 40 MG TAB PO SCH (10:44)
[2021-11-08] MEDS: Cholecalciferol (Vitamin D3) 400 UNITS TAB PO SCH (10:44)
[2021-11-08] MEDS: Ascorbic Acid 500 mg Chewable Tablet PO SCH (10:44)
[2021-11-08] MEDS: Heparin 5,000 UNITS/ML VIAL SC SCH ×2 (10:45→20:39)
[2021-11-08] MEDS: Atorvastatin Calcium 40 MG TAB PO SCH (20:38)
[2021-11-09] MEDS: Albuterol 200 PUFF (6.7GM INHALER) INH SCH ×6 (01:04→21:08)
[2021-11-09] MEDS: Lorazepam 0.5 MG TAB PO PRN ×3 (03:46→21:03)
[2021-11-09 03:49] LABS: #Lymphocytes 0.6 thou/uL (1.20-3.40); #Monocytes 0.5 thou/uL (0.11-0.59); #Neutrophils 5.7 thou/uL (1.40-6.50); %Basophils 0.2 % (0.0-1.0); %Eosinophils 0.6 % (0.0-10.0); %Lymphocytes 9.2 % (21.0-51.0); %Monocytes 6.7 % (0.0-10.0); %Neutrophils 83.3 % (42.0-75.0); Hemoglobin 13.1 g/dL (14.0-18.0); Mean Corpuscular HGB CONC 32.3 g/dL (32.0-36.0); Mean Corpuscular Hemoglobin 28.9 pg (27.0-31.0); Mean Corpuscular Volume 89.4 fL (78.0-98.0); Mean Platelet Volume 9.3 fL (7.4-10.4); Platelet Count 144 thou/uL (130-400); RBC Distribution Width 15.1 % (11.5-14.5); Red Blood Cell (RBC) Count 4.54 mill/uL (4.70-6.10); White Blood Cell (WBC) Count 6.9 thou/uL (4.8-10.8)
[2021-11-09 04:10] LABS: Anion Gap 10 mmol/L (10-20); BUN (Urea Nitrogen) 39 mg/dL (8.4-25.7); Calc. Creatinine Clearance 37 mL/min (70-130); Carbon Dioxide 29 mmol/L (23-31); Chloride 99 mmol/L (98-107); Glucose 130 mg/dL (83-110); Magnesium 1.9 mg/dL (1.6-2.6); Potassium 3.9 mmol/L (3.5-5.1); Sodium 134 mmol/L (136-145)
[2021-11-09] MEDS ORDERED: Magnesium 2 GM/50 ML 2 GM in Premix Bag 1 BAG IVPB SCH (06:30)
[2021-11-09] MEDS: Dexamethasone 4 MG TAB PO SCH ×2 (07:52→07:53)
[2021-11-09] MEDS: Aspirin 81 mg Enteric Coated Tablet PO SCH (07:52)
[2021-11-09] MEDS: Furosemide 40 MG TAB PO SCH (07:52)
[2021-11-09] MEDS: Heparin 5,000 UNITS/ML VIAL SC SCH ×2 (07:52→21:02)
[2021-11-09] MEDS: Metoprolol Tartrate 25 MG TAB PO SCH ×2 (07:52→21:03)
[2021-11-09] MEDS: Zinc Sulfate 220 MG CAP PO SCH (07:52)
[2021-11-09] MEDS: Ascorbic Acid 500 mg Chewable Tablet PO SCH (07:52)
[2021-11-09] MEDS: Cholecalciferol (Vitamin D3) 400 UNITS TAB PO SCH (07:53)
[2021-11-09] MEDS: Mometasone 200 MCG/Formoterol 5 MCG 120 PUFF INHALER INH SCH ×2 (11:06→21:07)
[2021-11-09] MEDS: Atorvastatin Calcium 40 MG TAB PO SCH (21:03)
[2021-11-10] MEDS: Albuterol 200 PUFF (6.7GM INHALER) INH SCH ×5 (02:37→19:35)
[2021-11-10] MEDS: Lorazepam 0.5 MG TAB PO PRN (02:37)
[2021-11-10] MEDS ORDERED: Magnesium 2 GM/50 ML 2 GM in Premix Bag 1 BAG IVPB SCH (06:30)
[2021-11-10] MEDS: Furosemide 40 MG TAB PO SCH (09:18)
[2021-11-10] MEDS: Cholecalciferol (Vitamin D3) 400 UNITS TAB PO SCH (09:19)
[2021-11-10] MEDS: Heparin 5,000 UNITS/ML VIAL SC SCH ×2 (09:19→21:42)
[2021-11-10] MEDS: Metoprolol Tartrate 25 MG TAB PO SCH ×2 (09:19→21:42)
[2021-11-10] MEDS: Zinc Sulfate 220 MG CAP PO SCH (09:19)
[2021-11-10] MEDS: Dexamethasone 4 MG TAB PO SCH (09:19)
[2021-11-10] MEDS: Aspirin 81 mg Enteric Coated Tablet PO SCH (09:19)
[2021-11-10] MEDS: Ascorbic Acid 500 mg Chewable Tablet PO SCH (09:19)
[2021-11-10] MEDS: Mometasone 200 MCG/Formoterol 5 MCG 120 PUFF INHALER INH SCH ×2 (09:20→19:35)
[2021-11-10] MEDS ORDERED: Furosemide 40 MG/4 ML VIAL SLOW IVP SCH (12:45)
[2021-11-10] MEDS: Atorvastatin Calcium 40 MG TAB PO SCH (21:41)
[2021-11-10] MEDS: clonazePAM 1 MG TAB PO SCH (21:50)
[2021-11-11 04:00] LABS: Magnesium 1.9 mg/dL (1.6-2.6)
[2021-11-11] MEDS: Lorazepam 0.5 MG TAB PO PRN (04:51)
[2021-11-11] MEDS ORDERED: Magnesium 2 GM/50 ML 2 GM in Premix Bag 1 BAG IVPB SCH (06:00)
[2021-11-11] MEDS: Albuterol 200 PUFF (6.7GM INHALER) INH SCH ×5 (07:00→18:19)
[2021-11-11] MEDS: Zinc Sulfate 220 MG CAP PO SCH (09:34)
[2021-11-11] MEDS: Aspirin 81 mg Enteric Coated Tablet PO SCH (09:34)
[2021-11-11] MEDS: Ascorbic Acid 500 mg Chewable Tablet PO SCH (09:35)
[2021-11-11] MEDS: Metoprolol Tartrate 25 MG TAB PO SCH ×2 (09:35→20:04)
[2021-11-11] MEDS: Cholecalciferol (Vitamin D3) 400 UNITS TAB PO SCH (09:35)
[2021-11-11] MEDS: Heparin 5,000 UNITS/ML VIAL SC SCH ×2 (09:35→20:04)
[2021-11-11] MEDS: Dexamethasone 4 MG TAB PO SCH (09:35)
[2021-11-11] MEDS: Furosemide 40 MG TAB PO SCH (09:36)
[2021-11-11] MEDS: Mometasone 200 MCG/Formoterol 5 MCG 120 PUFF INHALER INH SCH ×2 (09:37→18:20)
[2021-11-11] MEDS: clonazePAM 1 MG TAB PO SCH ×2 (09:41→20:04)
[2021-11-11] MEDS: Atorvastatin Calcium 40 MG TAB PO SCH (20:04)
[2021-11-12 03:52] LABS: #Lymphocytes 0.7 thou/uL (1.20-3.40); #Monocytes 0.6 thou/uL (0.11-0.59); #Neutrophils 9.6 thou/uL (1.40-6.50); %Basophils 0.1 % (0.0-1.0); %Eosinophils 0.3 % (0.0-10.0); %Lymphocytes 6.4 % (21.0-51.0); %Monocytes 5.4 % (0.0-10.0); %Neutrophils 87.7 % (42.0-75.0); Hemoglobin 13.1 g/dL (14.0-18.0); Mean Corpuscular HGB CONC 32.9 g/dL (32.0-36.0); Mean Corpuscular Hemoglobin 29.6 pg (27.0-31.0); Mean Corpuscular Volume 90.1 fL (78.0-98.0); Mean Platelet Volume 9.1 fL (7.4-10.4); Platelet Count 142 thou/uL (130-400); RBC Distribution Width 15.6 % (11.5-14.5); Red Blood Cell (RBC) Count 4.42 mill/uL (4.70-6.10)
[2021-11-12 04:05] LABS: Anion Gap 12 mmol/L (10-20); BUN (Urea Nitrogen) 38 mg/dL (8.4-25.7); Calc. Creatinine Clearance 37 mL/min (70-130); Calcium 8.1 mg/dL (7.8-10.44); Carbon Dioxide 28 mmol/L (23-31); Chloride 101 mmol/L (98-107); Glucose 126 mg/dL (83-110); Magnesium 2.1 mg/dL (1.6-2.6); Potassium 4.1 mmol/L (3.5-5.1); Sodium 137 mmol/L (136-145)
[2021-11-12] MEDS: Albuterol 200 PUFF (6.7GM INHALER) INH SCH ×5 (07:31→19:30)
[2021-11-12] MEDS: Ascorbic Acid 500 mg Chewable Tablet PO SCH (10:40)
[2021-11-12] MEDS: Cholecalciferol (Vitamin D3) 400 UNITS TAB PO SCH (10:40)
[2021-11-12] MEDS: Metoprolol Tartrate 25 MG TAB PO SCH ×2 (10:40→21:12)
[2021-11-12] MEDS: Heparin 5,000 UNITS/ML VIAL SC SCH ×2 (10:40→21:12)
[2021-11-12] MEDS: Zinc Sulfate 220 MG CAP PO SCH (10:40)
[2021-11-12] MEDS: Aspirin 81 mg Enteric Coated Tablet PO SCH (10:40)
[2021-11-12] MEDS: clonazePAM 1 MG TAB PO SCH ×2 (10:47→21:18)
[2021-11-12] MEDS: Furosemide 40 MG TAB PO SCH (10:47)
[2021-11-12] MEDS: Mometasone 200 MCG/Formoterol 5 MCG 120 PUFF INHALER INH SCH ×2 (10:47→21:14)
[2021-11-12] MEDS: Dexamethasone 4 MG TAB PO SCH (10:47)
[2021-11-12] MEDS: Atorvastatin Calcium 40 MG TAB PO SCH (21:12)
[2021-11-13] MEDS: Albuterol 200 PUFF (6.7GM INHALER) INH SCH ×6 (00:32→21:38)
[2021-11-13] MEDS: Mometasone 200 MCG/Formoterol 5 MCG 120 PUFF INHALER INH SCH ×2 (05:35→19:20)
[2021-11-13] MEDS: Furosemide 40 MG TAB PO SCH (07:25)
[2021-11-13] MEDS: Cholecalciferol (Vitamin D3) 400 UNITS TAB PO SCH (07:26)
[2021-11-13] MEDS: Zinc Sulfate 220 MG CAP PO SCH (07:26)
[2021-11-13] MEDS: Dexamethasone 4 MG TAB PO SCH (07:26)
[2021-11-13] MEDS: clonazePAM 1 MG TAB PO SCH ×2 (07:26→20:53)
[2021-11-13] MEDS: Aspirin 81 mg Enteric Coated Tablet PO SCH (07:26)
[2021-11-13] MEDS: Ascorbic Acid 500 mg Chewable Tablet PO SCH (07:26)
[2021-11-13] MEDS: Metoprolol Tartrate 25 MG TAB PO SCH ×2 (07:27→20:53)
[2021-11-13] MEDS: Heparin 5,000 UNITS/ML VIAL SC SCH ×2 (07:27→20:52)
[2021-11-13] MEDS: Atorvastatin Calcium 40 MG TAB PO SCH (20:53)
[2021-11-13] MEDS: Benzonatate 100 MG CAP PO PRN (21:38)
[2021-11-14] MEDS: Lorazepam 0.5 MG TAB PO PRN (01:21)
[2021-11-14] MEDS: Albuterol 200 PUFF (6.7GM INHALER) INH SCH ×6 (03:34→21:36)
[2021-11-14] MEDS: Mometasone 200 MCG/Formoterol 5 MCG 120 PUFF INHALER INH SCH ×2 (06:16→18:10)
[2021-11-14] MEDS: Heparin 5,000 UNITS/ML VIAL SC SCH ×2 (09:47→21:15)
[2021-11-14] MEDS: Cholecalciferol (Vitamin D3) 400 UNITS TAB PO SCH (09:55)
[2021-11-14] MEDS: Dexamethasone 4 MG TAB PO SCH (09:55)
[2021-11-14] MEDS: Metoprolol Tartrate 25 MG TAB PO SCH ×2 (09:55→21:15)
[2021-11-14] MEDS: Aspirin 81 mg Enteric Coated Tablet PO SCH (09:55)
[2021-11-14] MEDS: clonazePAM 1 MG TAB PO SCH ×2 (09:55→21:15)
[2021-11-14] MEDS: Ascorbic Acid 500 mg Chewable Tablet PO SCH (09:55)
[2021-11-14] MEDS: Zinc Sulfate 220 MG CAP PO SCH (09:56)
[2021-11-14] MEDS: Furosemide 40 MG TAB PO SCH (10:09)
[2021-11-14] MEDS: Atorvastatin Calcium 40 MG TAB PO SCH (21:15)
[2021-11-15] MEDS: Albuterol 200 PUFF (6.7GM INHALER) INH SCH ×5 (03:42→17:20)
[2021-11-15 05:51] LABS: Anion Gap 11 mmol/L (10-20); BUN (Urea Nitrogen) 35 mg/dL (8.4-25.7); Calc. Creatinine Clearance 73 mL/min (70-130); Calcium 8.2 mg/dL (7.8-10.44); Carbon Dioxide 31 mmol/L (23-31); Chloride 103 mmol/L (98-107); Glucose 137 mg/dL (83-110); Potassium 4.1 mmol/L (3.5-5.1); Sodium 141 mmol/L (136-145)
[2021-11-15] MEDS: Mometasone 200 MCG/Formoterol 5 MCG 120 PUFF INHALER INH SCH ×2 (05:54→17:20)
[2021-11-15 07:36] LABS: #Lymphocytes 0.7 thou/uL (1.20-3.40); #Monocytes 0.5 thou/uL (0.11-0.59); #Neutrophils 10.8 thou/uL (1.40-6.50); %Basophils 0.2 % (0.0-1.0); %Eosinophils 0.3 % (0.0-10.0); %Lymphocytes 5.6 % (21.0-51.0); %Monocytes 3.8 % (0.0-10.0); %Neutrophils 90.1 % (42.0-75.0); Hemoglobin 12.5 g/dL (14.0-18.0); Mean Corpuscular Hemoglobin 30.2 pg (27.0-31.0); Mean Corpuscular Volume 91.3 fL (78.0-98.0); Mean Platelet Volume 9.5 fL (7.4-10.4); Platelet Count 108 thou/uL (130-400); RBC Distribution Width 16.1 % (11.5-14.5); Red Blood Cell (RBC) Count 4.15 mill/uL (4.70-6.10); White Blood Cell (WBC) Count 11.9 thou/uL (4.8-10.8)
[2021-11-15] MEDS: Aspirin 81 mg Enteric Coated Tablet PO SCH (07:39)
[2021-11-15] MEDS: Cholecalciferol (Vitamin D3) 400 UNITS TAB PO SCH (07:39)
[2021-11-15] MEDS: Dexamethasone 4 MG TAB PO SCH (07:39)
[2021-11-15] MEDS: Ascorbic Acid 500 mg Chewable Tablet PO SCH (07:39)
[2021-11-15] MEDS: clonazePAM 1 MG TAB PO SCH ×2 (07:39→19:49)
[2021-11-15] MEDS: Furosemide 40 MG TAB PO SCH (07:39)
[2021-11-15] MEDS: Zinc Sulfate 220 MG CAP PO SCH (07:40)
[2021-11-15] MEDS: Metoprolol Tartrate 25 MG TAB PO SCH ×2 (07:40→19:49)
[2021-11-15 09:50] LABS: MDiff Complete? YES; Ovalocytes SLIGHT = 2-5 cells (100X) (0-1/hpf); Platelet Morphology Comment Appears Decreased; Polychromasia SLIGHT = 2-3 cells (100X) (0-2/hpf)
[2021-11-15] MEDS: Heparin 5,000 UNITS/ML VIAL SC SCH ×2 (12:18→19:49)
[2021-11-15] MEDS: Atorvastatin Calcium 40 MG TAB PO SCH (19:48)
[2021-11-16] MEDS: Albuterol 200 PUFF (6.7GM INHALER) INH SCH ×7 (04:02→21:46)
[2021-11-16] MEDS: Lorazepam 0.5 MG TAB PO PRN (04:43)
[2021-11-16] MEDS: Mometasone 200 MCG/Formoterol 5 MCG 120 PUFF INHALER INH SCH ×2 (06:07→18:31)
[2021-11-16] MEDS: clonazePAM 1 MG TAB PO SCH ×2 (07:55→20:59)
[2021-11-16] MEDS: Dexamethasone 4 MG TAB PO SCH (07:55)
[2021-11-16] MEDS: Metoprolol Tartrate 25 MG TAB PO SCH ×2 (07:55→20:59)
[2021-11-16] MEDS: Cholecalciferol (Vitamin D3) 400 UNITS TAB PO SCH (07:55)
[2021-11-16] MEDS: Furosemide 40 MG TAB PO SCH (07:55)
[2021-11-16] MEDS: Ascorbic Acid 500 mg Chewable Tablet PO SCH (07:55)
[2021-11-16] MEDS: Zinc Sulfate 220 MG CAP PO SCH (07:55)
[2021-11-16] MEDS: Heparin 5,000 UNITS/ML VIAL SC SCH ×2 (07:56→21:45)
[2021-11-16] MEDS: Aspirin 81 mg Enteric Coated Tablet PO SCH (07:56)
[2021-11-16] MEDS: Atorvastatin Calcium 40 MG TAB PO SCH (20:59)
[2021-11-17] MEDS: Albuterol 200 PUFF (6.7GM INHALER) INH SCH ×6 (03:30→22:24)
[2021-11-17 05:59] LABS: #Lymphocytes 0.7 thou/uL (1.20-3.40); #Monocytes 0.6 thou/uL (0.11-0.59); #Neutrophils 10.3 thou/uL (1.40-6.50); %Eosinophils 0.2 % (0.0-10.0); %Monocytes 5.1 % (0.0-10.0); %Neutrophils 88.6 % (42.0-75.0); Mean Corpuscular HGB CONC 32.1 g/dL (32.0-36.0); Mean Corpuscular Hemoglobin 29.8 pg (27.0-31.0); Mean Platelet Volume 9.2 fL (7.4-10.4); Platelet Count 102 thou/uL (130-400); RBC Distribution Width 16.6 % (11.5-14.5); Red Blood Cell (RBC) Count 4.36 mill/uL (4.70-6.10); White Blood Cell (WBC) Count 11.6 thou/uL (4.8-10.8)
[2021-11-17] MEDS: Mometasone 200 MCG/Formoterol 5 MCG 120 PUFF INHALER INH SCH ×2 (06:58→18:04)
[2021-11-17] MEDS: Furosemide 40 MG TAB PO SCH (08:11)
[2021-11-17] MEDS: Zinc Sulfate 220 MG CAP PO SCH (08:11)
[2021-11-17] MEDS: Aspirin 81 mg Enteric Coated Tablet PO SCH (08:11)
[2021-11-17] MEDS: Ascorbic Acid 500 mg Chewable Tablet PO SCH (08:12)
[2021-11-17] MEDS: Metoprolol Tartrate 25 MG TAB PO SCH ×2 (08:12→19:53)
[2021-11-17] MEDS: clonazePAM 1 MG TAB PO SCH ×2 (08:12→19:53)
[2021-11-17] MEDS: Cholecalciferol (Vitamin D3) 400 UNITS TAB PO SCH (08:12)
[2021-11-17] MEDS: Dexamethasone 4 MG TAB PO SCH (08:12)
[2021-11-17] MEDS: Heparin 5,000 UNITS/ML VIAL SC SCH ×2 (08:15→19:53)
[2021-11-17] MEDS: Atorvastatin Calcium 40 MG TAB PO SCH (19:52)
[2021-11-18] MEDS: Albuterol 200 PUFF (6.7GM INHALER) INH SCH ×5 (01:25→18:14)
[2021-11-18] MEDS: Mometasone 200 MCG/Formoterol 5 MCG 120 PUFF INHALER INH SCH ×2 (05:27→18:14)
[2021-11-18] MEDS: Cholecalciferol (Vitamin D3) 400 UNITS TAB PO SCH (09:30)
[2021-11-18] MEDS: Aspirin 81 mg Enteric Coated Tablet PO SCH (09:30)
[2021-11-18] MEDS: Dexamethasone 4 MG TAB PO SCH (09:30)
[2021-11-18] MEDS: Metoprolol Tartrate 25 MG TAB PO SCH ×2 (09:30→20:41)
[2021-11-18] MEDS: clonazePAM 1 MG TAB PO SCH ×2 (09:31→20:41)
[2021-11-18] MEDS: Ascorbic Acid 500 mg Chewable Tablet PO SCH (09:31)
[2021-11-18] MEDS: Furosemide 40 MG TAB PO SCH (09:31)
[2021-11-18] MEDS: Zinc Sulfate 220 MG CAP PO SCH (09:31)
[2021-11-18] MEDS: Heparin 5,000 UNITS/ML VIAL SC SCH ×2 (09:32→20:41)
[2021-11-18] MEDS: Atorvastatin Calcium 40 MG TAB PO SCH (20:40)
[2021-11-19] MEDS: Albuterol 200 PUFF (6.7GM INHALER) INH SCH ×7 (00:11→23:14)
[2021-11-19] MEDS: Lorazepam 0.5 MG TAB PO PRN (02:34)
[2021-11-19] MEDS: Mometasone 200 MCG/Formoterol 5 MCG 120 PUFF INHALER INH SCH ×2 (05:59→17:00)
[2021-11-19] MEDS: Heparin 5,000 UNITS/ML VIAL SC SCH ×2 (07:58→20:36)
[2021-11-19] MEDS: Ascorbic Acid 500 mg Chewable Tablet PO SCH (07:58)
[2021-11-19] MEDS: clonazePAM 1 MG TAB PO SCH ×2 (07:59→20:36)
[2021-11-19] MEDS: Dexamethasone 1 MG TAB PO SCH (07:59)
[2021-11-19] MEDS: Zinc Sulfate 220 MG CAP PO SCH (07:59)
[2021-11-19] MEDS: Furosemide 40 MG TAB PO SCH (07:59)
[2021-11-19] MEDS: Cholecalciferol (Vitamin D3) 400 UNITS TAB PO SCH (08:00)
[2021-11-19] MEDS: Aspirin 81 mg Enteric Coated Tablet PO SCH (08:00)
[2021-11-19] MEDS: Metoprolol Tartrate 25 MG TAB PO SCH ×2 (08:00→20:36)
[2021-11-19] MEDS ORDERED: Polyethylene Glycol 3350 17 GM Packet PO PRN (12:12)
[2021-11-19] MEDS ORDERED: Docusate 100 MG CAP PO PRN (12:12)
[2021-11-19] MEDS: Atorvastatin Calcium 40 MG TAB PO SCH (20:35)
[2021-11-20] MEDS: Lorazepam 0.5 MG TAB PO PRN (02:44)
[2021-11-20] MEDS: Albuterol 200 PUFF (6.7GM INHALER) INH SCH ×6 (02:44→21:31)
[2021-11-20] MEDS: Mometasone 200 MCG/Formoterol 5 MCG 120 PUFF INHALER INH SCH ×2 (06:17→21:32)
[2021-11-20 07:27] LABS: ALT (SGPT) 45 U/L (8-55); AST (SGOT) 63 U/L (5-34); Albumin 2.7 g/dL (3.4-4.8); Alkaline Phosphatase 57 U/L (40-110); Anion Gap 10 mmol/L (10-20); BUN (Urea Nitrogen) 39 mg/dL (8.4-25.7); Bilirubin, Total 0.8 mg/dL (0.2-1.2); Calc. Creatinine Clearance 71 mL/min (70-130); Calcium 8.2 mg/dL (7.8-10.44); Carbon Dioxide 35 mmol/L (23-31); Chloride 98 mmol/L (98-107); Globulin 2.6 g/dL (2.4-3.5); Glucose 99 mg/dL (83-110); Potassium 3.8 mmol/L (3.5-5.1); Protein, Total 5.3 g/dL (5.8-8.1); Sodium 139 mmol/L (136-145)
[2021-11-20 07:40] LABS: Hemoglobin 13.5 g/dL (14.0-18.0); Mean Corpuscular HGB CONC 31.6 g/dL (32.0-36.0); Mean Corpuscular Hemoglobin 29.3 pg (27.0-31.0); Mean Corpuscular Volume 92.9 fL (78.0-98.0); RBC Distribution Width 17.4 % (11.5-14.5)
[2021-11-20] MEDS ORDERED: Magnesium 2 GM/50 ML 2 GM in Premix Bag 1 BAG IVPB SCH (07:45)
[2021-11-20] MEDS: Furosemide 40 MG TAB PO SCH (07:51)
[2021-11-20] MEDS: Dexamethasone 1 MG TAB PO SCH (07:52)
[2021-11-20] MEDS: Aspirin 81 mg Enteric Coated Tablet PO SCH (07:53)
[2021-11-20] MEDS: Ascorbic Acid 500 mg Chewable Tablet PO SCH (07:53)
[2021-11-20] MEDS: clonazePAM 1 MG TAB PO SCH ×2 (07:54→21:34)
[2021-11-20] MEDS: Cholecalciferol (Vitamin D3) 400 UNITS TAB PO SCH (07:54)
[2021-11-20] MEDS: Metoprolol Tartrate 25 MG TAB PO SCH ×2 (07:55→21:34)
[2021-11-20] MEDS: Zinc Sulfate 220 MG CAP PO SCH (07:56)
[2021-11-20 08:07] LABS: #Eosinphils 0.1 thou/uL (0.0-0.7); #Lymphocytes 0.9 thou/uL (1.20-3.40); #Monocytes 0.6 thou/uL (0.11-0.59); #Neutrophils 10.1 thou/uL (1.40-6.50); %Basophils 0.3 % (0.0-1.0); %Eosinophils 0.6 % (0.0-10.0); %Lymphocytes 7.5 % (21.0-51.0); %Monocytes 5.3 % (0.0-10.0); %Neutrophils 86.3 % (42.0-75.0); Mean Platelet Volume 10.5 fL (7.4-10.4); Platelet Count 78 thou/uL (130-400); Platelet Morphology Comment Appears Decreased; Red Blood Cell (RBC) Count 4.59 mill/uL (4.70-6.10); White Blood Cell (WBC) Count 11.7 thou/uL (4.8-10.8)
[2021-11-20] MEDS: Heparin 5,000 UNITS/ML VIAL SC SCH (08:42)
[2021-11-20] MEDS ORDERED: Furosemide 40 MG/4 ML VIAL SLOW IVP SCH (16:00)
[2021-11-20] MEDS: Atorvastatin Calcium 40 MG TAB PO SCH (21:34)
[2021-11-21] MEDS: Albuterol 200 PUFF (6.7GM INHALER) INH SCH ×6 (02:46→21:52)
[2021-11-21] MEDS: Lorazepam 0.5 MG TAB PO PRN (03:55)
[2021-11-21 05:45] LABS: #Eosinphils 0.1 thou/uL (0.0-0.7); #Lymphocytes 0.8 thou/uL (1.20-3.40); #Monocytes 0.8 thou/uL (0.11-0.59); #Neutrophils 10.9 thou/uL (1.40-6.50); %Basophils 0.1 % (0.0-1.0); %Lymphocytes 6.6 % (21.0-51.0); %Monocytes 6.1 % (0.0-10.0); %Neutrophils 86.2 % (42.0-75.0); Hemoglobin 14.1 g/dL (14.0-18.0); Mean Corpuscular HGB CONC 31.8 g/dL (32.0-36.0); Mean Corpuscular Hemoglobin 29.7 pg (27.0-31.0); Mean Corpuscular Volume 93.5 fL (78.0-98.0); Mean Platelet Volume 9.4 fL (7.4-10.4); Platelet Count 92 thou/uL (130-400); Red Blood Cell (RBC) Count 4.74 mill/uL (4.70-6.10); White Blood Cell (WBC) Count 12.6 thou/uL (4.8-10.8)
[2021-11-21 06:06] LABS: Anion Gap 12 mmol/L (10-20); BUN (Urea Nitrogen) 40 mg/dL (8.4-25.7); CRP (Inflammatory) 0.83 mg/dL (= or < 0.5); Calc. Creatinine Clearance 66 mL/min (70-130); Calcium 8.5 mg/dL (7.8-10.44); Carbon Dioxide 36 mmol/L (23-31); Chloride 97 mmol/L (98-107); Glucose 104 mg/dL (83-110); Magnesium 2.2 mg/dL (1.6-2.6); Phosphorus 4.2 mg/dL (2.3-4.7); Sodium 141 mmol/L (136-145)
[2021-11-21] MEDS: Furosemide 40 MG/4 ML VIAL SLOW IVP SCH ×2 (06:19→13:34)
[2021-11-21] MEDS: Mometasone 200 MCG/Formoterol 5 MCG 120 PUFF INHALER INH SCH ×2 (06:20→17:49)
[2021-11-21] MEDS: Aspirin 81 mg Enteric Coated Tablet PO SCH (09:07)
[2021-11-21] MEDS: Metoprolol Tartrate 25 MG TAB PO SCH ×2 (09:08→21:52)
[2021-11-21] MEDS: Dexamethasone 1 MG TAB PO SCH (09:08)
[2021-11-21] MEDS: Ascorbic Acid 500 mg Chewable Tablet PO SCH (09:08)
[2021-11-21] MEDS: Zinc Sulfate 220 MG CAP PO SCH (09:08)
[2021-11-21] MEDS: Cholecalciferol (Vitamin D3) 400 UNITS TAB PO SCH (09:08)
[2021-11-21] MEDS ORDERED: clonazePAM 1 MG TAB PO PRN (09:36)
[2021-11-21] MEDS: clonazePAM 1 MG TAB PO SCH (10:38)
[2021-11-21 12:21] LABS: Troponin I 0.043 ng/mL (< 0.028)
[2021-11-21] MEDS: Atorvastatin Calcium 40 MG TAB PO SCH (21:52)
[2021-11-22] MEDS: Albuterol 200 PUFF (6.7GM INHALER) INH SCH ×6 (04:48→22:13)
[2021-11-22 04:54] LABS: #Eosinphils 0.1 thou/uL (0.0-0.7); #Lymphocytes 0.9 thou/uL (1.20-3.40); #Monocytes 0.7 thou/uL (0.11-0.59); #Neutrophils 8.5 thou/uL (1.40-6.50); %Basophils 0.2 % (0.0-1.0); %Eosinophils 0.9 % (0.0-10.0); %Lymphocytes 8.4 % (21.0-51.0); %Monocytes 6.5 % (0.0-10.0); Hemoglobin 12.9 g/dL (14.0-18.0); Mean Corpuscular HGB CONC 32.4 g/dL (32.0-36.0); Mean Corpuscular Hemoglobin 30.3 pg (27.0-31.0); Mean Corpuscular Volume 93.7 fL (78.0-98.0); Mean Platelet Volume 9.7 fL (7.4-10.4); Platelet Count 86 thou/uL (130-400); RBC Distribution Width 17.8 % (11.5-14.5); Red Blood Cell (RBC) Count 4.26 mill/uL (4.70-6.10); White Blood Cell (WBC) Count 10.1 thou/uL (4.8-10.8)
[2021-11-22 05:11] LABS: Anion Gap 10 mmol/L (10-20); BUN (Urea Nitrogen) 39 mg/dL (8.4-25.7); Calc. Creatinine Clearance 73 mL/min (70-130); Calcium 8.2 mg/dL (7.8-10.44); Carbon Dioxide 37 mmol/L (23-31); Chloride 98 mmol/L (98-107); Glucose 91 mg/dL (83-110); Magnesium 2.1 mg/dL (1.6-2.6); Phosphorus 4.1 mg/dL (2.3-4.7); Potassium 3.9 mmol/L (3.5-5.1); Sodium 141 mmol/L (136-145)
[2021-11-22] MEDS: Furosemide 40 MG/4 ML VIAL SLOW IVP SCH ×2 (05:28→14:26)
[2021-11-22] MEDS: Mometasone 200 MCG/Formoterol 5 MCG 120 PUFF INHALER INH SCH ×2 (05:29→21:13)
[2021-11-22] MEDS: Zinc Sulfate 220 MG CAP PO SCH (09:38)
[2021-11-22] MEDS: Metoprolol Tartrate 25 MG TAB PO SCH ×2 (09:38→21:16)
[2021-11-22] MEDS: Cholecalciferol (Vitamin D3) 400 UNITS TAB PO SCH (09:38)
[2021-11-22] MEDS: Aspirin 81 mg Enteric Coated Tablet PO SCH (09:38)
[2021-11-22] MEDS: Ascorbic Acid 500 mg Chewable Tablet PO SCH (09:38)
[2021-11-22] MEDS: Atorvastatin Calcium 40 MG TAB PO SCH (21:16)
[2021-11-22] MEDS: Lorazepam 0.5 MG TAB PO PRN (21:16)
[2021-11-23] MEDS: Albuterol 200 PUFF (6.7GM INHALER) INH SCH ×5 (03:57→17:43)
[2021-11-23 05:24] LABS: #Eosinphils 0.3 thou/uL (0.0-0.7); #Lymphocytes 0.8 thou/uL (1.20-3.40); #Monocytes 0.7 thou/uL (0.11-0.59); #Neutrophils 8.5 thou/uL (1.40-6.50); %Basophils 0.1 % (0.0-1.0); %Eosinophils 2.6 % (0.0-10.0); %Lymphocytes 7.8 % (21.0-51.0); %Monocytes 6.8 % (0.0-10.0); %Neutrophils 82.7 % (42.0-75.0); Hemoglobin 13.1 g/dL (14.0-18.0); Mean Corpuscular HGB CONC 31.9 g/dL (32.0-36.0); Mean Platelet Volume 9.3 fL (7.4-10.4); Platelet Count 88 thou/uL (130-400); RBC Distribution Width 18.4 % (11.5-14.5); Red Blood Cell (RBC) Count 4.38 mill/uL (4.70-6.10); White Blood Cell (WBC) Count 10.3 thou/uL (4.8-10.8)
[2021-11-23 05:34] LABS: Anion Gap 12 mmol/L (10-20); BUN (Urea Nitrogen) 40 mg/dL (8.4-25.7); Calc. Creatinine Clearance 51 mL/min (70-130); Calcium 8.2 mg/dL (7.8-10.44); Carbon Dioxide 36 mmol/L (23-31); Chloride 95 mmol/L (98-107); Glucose 135 mg/dL (83-110); Magnesium 1.9 mg/dL (1.6-2.6); Phosphorus 3.5 mg/dL (2.3-4.7); Potassium 3.7 mmol/L (3.5-5.1); Sodium 139 mmol/L (136-145)
[2021-11-23] MEDS: Furosemide 40 MG/4 ML VIAL SLOW IVP SCH (06:26)
[2021-11-23] MEDS: Furosemide 40 MG TAB PO SCH (06:33)
[2021-11-23] MEDS: Mometasone 200 MCG/Formoterol 5 MCG 120 PUFF INHALER INH SCH ×2 (06:34→17:43)
[2021-11-23] MEDS ORDERED: Magnesium 2 GM/50 ML 2 GM in Premix Bag 1 BAG IVPB SCH (07:00)
[2021-11-23] MEDS: Ascorbic Acid 500 mg Chewable Tablet PO SCH (09:24)
[2021-11-23] MEDS: Metoprolol Tartrate 25 MG TAB PO SCH ×2 (09:24→21:12)
[2021-11-23] MEDS: Zinc Sulfate 220 MG CAP PO SCH (09:25)
[2021-11-23] MEDS: Cholecalciferol (Vitamin D3) 400 UNITS TAB PO SCH (09:25)
[2021-11-23] MEDS: Aspirin 81 mg Enteric Coated Tablet PO SCH (09:25)
[2021-11-23] MEDS: Lorazepam 0.5 MG TAB PO PRN ×2 (14:25→21:15)
[2021-11-23 14:40] LABS: Heparin-Induced Ab (HITA) 0.064 OD (0.000-0.400)
[2021-11-23] MEDS: Atorvastatin Calcium 40 MG TAB PO SCH (21:12)
[2021-11-24] MEDS: Albuterol 200 PUFF (6.7GM INHALER) INH SCH ×7 (00:07→21:46)
[2021-11-24] MEDS: Mometasone 200 MCG/Formoterol 5 MCG 120 PUFF INHALER INH SCH ×2 (05:35→19:19)
[2021-11-24 06:20] LABS: #Eosinphils 0.2 thou/uL (0.0-0.7); #Lymphocytes 0.8 thou/uL (1.20-3.40); #Monocytes 0.7 thou/uL (0.11-0.59); #Neutrophils 7.4 thou/uL (1.40-6.50); %Basophils 0.2 % (0.0-1.0); %Eosinophils 2.7 % (0.0-10.0); %Lymphocytes 8.4 % (21.0-51.0); %Monocytes 7.5 % (0.0-10.0); %Neutrophils 81.3 % (42.0-75.0); Anion Gap 14 mmol/L (10-20); BUN (Urea Nitrogen) 35 mg/dL (8.4-25.7); Calc. Creatinine Clearance 75 mL/min (70-130); Calcium 8.1 mg/dL (7.8-10.44); Carbon Dioxide 28 mmol/L (23-31); Chloride 98 mmol/L (98-107); Glucose 98 mg/dL (83-110); Hemoglobin 13.2 g/dL (14.0-18.0); Magnesium 2.3 mg/dL (1.6-2.6); Mean Corpuscular HGB CONC 32.9 g/dL (32.0-36.0); Mean Corpuscular Hemoglobin 30.8 pg (27.0-31.0); Mean Corpuscular Volume 93.4 fL (78.0-98.0); Mean Platelet Volume 10.6 fL (7.4-10.4); Phosphorus 3.7 mg/dL (2.3-4.7); RBC Distribution Width 18.4 % (11.5-14.5); Red Blood Cell (RBC) Count 4.28 mill/uL (4.70-6.10); Sodium 136 mmol/L (136-145); White Blood Cell (WBC) Count 9.1 thou/uL (4.8-10.8)
[2021-11-24] MEDS: Ascorbic Acid 500 mg Chewable Tablet PO SCH (08:40)
[2021-11-24] MEDS: Metoprolol Tartrate 25 MG TAB PO SCH ×2 (08:40→21:44)
[2021-11-24] MEDS: Aspirin 81 mg Enteric Coated Tablet PO SCH (08:41)
[2021-11-24] MEDS: Furosemide 40 MG TAB PO SCH (08:41)
[2021-11-24] MEDS: Cholecalciferol (Vitamin D3) 400 UNITS TAB PO SCH (08:41)
[2021-11-24] MEDS: Zinc Sulfate 220 MG CAP PO SCH (08:41)
[2021-11-24 09:09] LABS: Platelet Count 83 thou/uL (130-400)
[2021-11-24] MEDS: Lorazepam 0.5 MG TAB PO PRN (17:03)
[2021-11-24] MEDS: Atorvastatin Calcium 40 MG TAB PO SCH (21:44)
[2021-11-25] MEDS: Albuterol 200 PUFF (6.7GM INHALER) INH SCH ×3 (03:11→11:18)
[2021-11-25 05:32] LABS: #Eosinphils 0.2 thou/uL (0.0-0.7); #Lymphocytes 0.7 thou/uL (1.20-3.40); #Monocytes 0.5 thou/uL (0.11-0.59); #Neutrophils 6.4 thou/uL (1.40-6.50); %Basophils 0.1 % (0.0-1.0); %Eosinophils 3.2 % (0.0-10.0); %Lymphocytes 9.3 % (21.0-51.0); %Monocytes 6.6 % (0.0-10.0); %Neutrophils 80.8 % (42.0-75.0); Hemoglobin 12.5 g/dL (14.0-18.0); Mean Corpuscular HGB CONC 32.6 g/dL (32.0-36.0); Mean Corpuscular Hemoglobin 30.6 pg (27.0-31.0); Mean Corpuscular Volume 93.8 fL (78.0-98.0); Mean Platelet Volume 9.1 fL (7.4-10.4); Platelet Count 94 thou/uL (130-400); RBC Distribution Width 18.4 % (11.5-14.5); White Blood Cell (WBC) Count 7.9 thou/uL (4.8-10.8)
[2021-11-25 05:44] LABS: Anion Gap 13 mmol/L (10-20); BUN (Urea Nitrogen) 26 mg/dL (8.4-25.7); Calc. Creatinine Clearance 73 mL/min (70-130); Calcium 8.1 mg/dL (7.8-10.44); Carbon Dioxide 30 mmol/L (23-31); Chloride 98 mmol/L (98-107); Glucose 118 mg/dL (83-110); Magnesium 1.9 mg/dL (1.6-2.6); Phosphorus 3.1 mg/dL (2.3-4.7); Potassium 3.8 mmol/L (3.5-5.1); Sodium 137 mmol/L (136-145)
[2021-11-25] MEDS ORDERED: Magnesium 2 GM/50 ML 2 GM in Premix Bag 1 BAG IVPB SCH (06:00)
[2021-11-25] MEDS: Lorazepam 0.5 MG TAB PO PRN ×2 (06:12→13:47)
[2021-11-25] MEDS: Mometasone 200 MCG/Formoterol 5 MCG 120 PUFF INHALER INH SCH (06:22)
[2021-11-25] MEDS: Zinc Sulfate 220 MG CAP PO SCH (08:45)
[2021-11-25] MEDS: Cholecalciferol (Vitamin D3) 400 UNITS TAB PO SCH (08:46)
[2021-11-25] MEDS: Furosemide 40 MG TAB PO SCH (08:46)
[2021-11-25] MEDS: Metoprolol Tartrate 25 MG TAB PO SCH (08:46)
[2021-11-25] MEDS: Ascorbic Acid 500 mg Chewable Tablet PO SCH (08:46)
[2021-11-25 09:48] VITALS: BMI 21.4
[2021-11-25] MEDS: Aspirin 81 mg Enteric Coated Tablet PO SCH (11:05)
[2021-11-25 11:28] VITALS: BP 125/66
[2021-11-25 13:54] VITALS: TEMP 98.2
== END 2021-11-25 13:58 | disposition hospice, home (50) | DRG 177 ==
LOC: ERS 21:00 → ERHOLD 22:05 → IMCU/EMU 10-31 09:50 → 2SW 11-13 15:16 → 2NO 11-22 15:47
PROVIDERS: ADMIT Student in an Organized Health Care Education/Training Program; ATTEND Family Medicine
PROC: 8E0ZXY6 Isolation (ICD-10-PCS; principal; 2021-10-30)
PROC: 5A09457 Assistance with Respiratory Ventilation, 24-96 Consecutive Hours, Continuous Positive Airway Pressure (ICD-10-PCS; 2021-10-30)
DX: U07.1 COVID-19 (principal); J12.82 Pneumonia due to coronavirus disease 2019; J96.21 Acute and chronic respiratory failure with hypoxia; J15.9 Unspecified bacterial pneumonia; I50.43 Acute on chronic combined systolic (congestive) and diastolic (congestive) heart failure; J44.0 Chronic obstructive pulmonary disease with (acute) lower respiratory infection; J44.1 Chronic obstructive pulmonary disease with (acute) exacerbation; N17.9 Acute kidney failure, unspecified; E87.2 Acidosis; E87.1 Hypo-osmolality and hyponatremia; I25.810 Atherosclerosis of coronary artery bypass graft(s) without angina pectoris; I47.1 Supraventricular tachycardia; I13.0 Hypertensive heart and chronic kidney disease with heart failure and stage 1 through stage 4 chronic kidney disease, or unspecified chronic kidney disease; R64 Cachexia; Z66 Do not resuscitate; Z51.5 Encounter for palliative care; K21.9 Gastro-esophageal reflux disease without esophagitis; I48.91 Unspecified atrial fibrillation; F41.9 Anxiety disorder, unspecified; E78.2 Mixed hyperlipidemia; E83.42 Hypomagnesemia; E87.6 Hypokalemia; N18.30 Chronic kidney disease, stage 3 unspecified; I27.20 Pulmonary hypertension, unspecified; I44.0 Atrioventricular block, first degree; D69.6 Thrombocytopenia, unspecified; K59.00 Constipation, unspecified; Z95.0 Presence of cardiac pacemaker; Z99.81 Dependence on supplemental oxygen; Z98.890 Other specified postprocedural states; Z79.82 Long term (current) use of aspirin; Z79.51 Long term (current) use of inhaled steroids; Z79.52 Long term (current) use of systemic steroids; Z79.899 Other long term (current) drug therapy; Z87.891 Personal history of nicotine dependence; Z68.21 Body mass index [BMI] 21.0-21.9, adult
CPT/HCPCS: 36415; 36600; 71045; 71275; 80048; 80053; 80202; 81001; 82550; 82553; 82805; 83605; 83690; 83735; 83880; 84100; 84484; 85025; 85379; 86140; 87040; 87070; 87081; 87205; 93005; 93010; 93970; 94660; 96365; 96367; 96375; C9113; J0282; J0692; J1100; J1644; J1650; J1940; J1956; J3370; J3475; J3490; J7070; J8540; Q9967; U0002